=== PATIENT | female | born 1950 | race Caucasian/White ===

== ENCOUNTER 2018-12-27 09:36 | Outpatient (REF) | payer BC, SELFPAY ==
[2018-12-27 13:24] LABS: Anion Gap 7.6 mmol/L (3-11); BUN 17 mg/dL (7-18); CO2 29.4 mmol/L (21.0-32.0); CREATININE 0.62 mg/dL (0.55-1.02); Calcium 8.9 mg/dL (8.5-10.1); Chloride 105 mmol/L (98-107); Cholesterol 185 mg/dL (50-200); Glucose 81 mg/dL (70-100); HDL Cholesterol 53 mg/dL (40-60); LDL CHOLESTEROL 122 mg/dL (<100); Potassium 4.8 mmol/L (3.5-5.1); Sodium 142 mmol/L (136-145); Triglyceride 39 mg/dL (30-150)
== END 2018-12-27 09:56 ==
LOC: LBN 09:36
PROVIDERS: PCP Internal Medicine; Visit Provider Internal Medicine
DX: I10 Essential (primary) hypertension (principal)
CPT/HCPCS: 80048; 80061; 83721

== ENCOUNTER 2019-03-08 10:15 | Emergency (ER) | payer BC, SELFPAY ==
[2019-03-08 10:26] VITALS: BP 158/86; PULSE 96; RESP 14; TEMP 36.6
--- NOTE | 2019-03-08 10:33 | ED.GENADUL_ITS ---
Discharge Plan Disposition Patient Disposition: HOME Condition: Good Discharge Details Chief Complaint: GenMedical Clinical Impression: Pain in right buttock Primary Care Provider: Serena Washington ED Provider: Thomas Velasco Home Meds and New Rx's Prescriptions: No Action ascorbic acid (vitamin C) 500 mg tablet 500 mg PO DAILY RF: 0 citalopram 10 mg tablet 10 mg PO DAILY Qty: 90 RF: 3 losartan-hydrochlorothiazide 100-12.5 mg tablet 1 tab PO DAILY Qty: 90 RF: 3 diltiazem HCl 360 mg capsule,extended release 24hr 360 mg PO DAILY Qty: 90 RF: 3 multivitamin [Daily Multi-Vitamin] 1 EACH tablet 1 ea PO DAILY RF: 0 aspirin 325 MG tablet 325 mg PO DAILY Qty: 90 RF: 3 atorvastatin 20 mg tablet 20 mg PO DAILY Qty: 90 RF: 3 Discharge Instructions Instructions: Leg Pain (ED) Additional Instructions: Feel free to return to the emergency department as needed for any new or worsening symptoms. Otherwise to need to take your medications as prescribed and use [id number] acetaminophen as needed for discomfort Referrals: Serena Washington MD [Primary Care Provider] - (As needed for reassessment or if not improving) Discharge Data Discharge Date/Time-TO BE ENTERED AT DEPARTURE: 03/08/19 12:19 Medical Decision Making Patient presenting to the emergency department for chief complaint of right buttock pain. Patient states a couple days ago she lost a sewing needle and thinks she may have sat on it due to the pain in her right buttock. Patient denies any fever chills, bowel or bladder irritation. Patient does state history of sciatica but denies any back pain type symptoms. Physical exam shows no obvious puncture wound, no palpable foreign body, beyond patient overweight status making it difficult to fully determine if there is a foreign body present there was no remarkable findings except for paraspinal tenderness to the right lumbar/sacral region. Plan to do radiological imaging to assess for metallic/radiopaque foreign body. Review of radiological imaging there is no obvious foreign body noted. Did discuss with patient possibility of piriformis syndrome, or musculoskeletal type pain. I feel that conservative therapies are appropriate and patient to follow- up with primary care provider as needed for reassessment. Return precautions were discussed after discussion of diagnosis and plan of care patient has no further needs, questions, or concerns and states clear understanding to return to the emergency department for any worsening symptoms. HPI General Mode of arrival: ambulatory . Date/Time Provider Initiated Documentation: 03/08/19 10:30 . Limitations to Documentation: no limitations . Information obtained by: patient and RN notes reviewed . History of Present Illness 69 year old F presents to the emergency department with the chief complaint of right buttock pain, puncture wound, described as mild, with intensity rated at 2. Quality is described as sharp, and is localized to the buttocks and right. Patient extremity. Patient started experiencing this week(s) (3) and it has been intermittent. No relieving factors improve symptom(s), Movement worsens symptoms . Patient notes no other symptoms.. Patient did receive the following treatments prior to arrival, none Related Data Home Medications Medication Instructions Recorded Confirmed multivitamin [Daily Multiple 1 ea PO DAILY 01/03/13 12/27/18 Vitamin] aspirin 325 mg PO DAILY #90 tab 01/05/17 12/27/18 ascorbic acid (vitamin C) 500 mg 500 mg PO DAILY 06/28/18 12/27/18 tablet citalopram 10 mg tablet 10 mg PO DAILY #90 tab 06/28/18 12/27/18 diltiazem CD 360 mg 360 mg PO DAILY #90 cap 06/28/18 12/27/18 capsule,extended release 24 hr losartan 100 1 tab PO DAILY #90 tab-cap 06/28/18 12/27/18 mg-hydrochlorothiazide 12.5 mg tablet atorvastatin 20 mg tablet 20 mg PO DAILY #90 tab 01/18/19 Previous Rx's Medication Instructions Recorded citalopram 10 mg tablet 10 mg PO DAILY #90 tab 06/28/18 diltiazem CD 360 mg 360 mg PO DAILY #90 cap 06/28/18 capsule,extended release 24 hr losartan 100 1 tab PO DAILY #90 tab-cap 06/28/18 mg-hydrochlorothiazide 12.5 mg tablet atorvastatin 20 mg tablet 20 mg PO DAILY #90 tab 01/18/19 Allergies Allergy/AdvReac Type Severity Reaction Status Date / Time phenobarbital Allergy Unknown unknown Verified 03/08/19 10:29 General Stated Complaint: GenMedical DESTINEE: 4 Review of Systems Constitutional Denies chills and Denies fever(s) Musculoskeletal Denies back pain, Denies muscle weakness, Denies numbness, Reports radiating pain into limb and Denies tingling Integumentary/Breasts Reports as per HPI and Reports wounds Neurologic Denies numbness and Denies tingling PFSH Medical History Afib Back pain Depression Diverticulosis Gallstones Hyperlipidemia Hypertension Memory loss Morbid obesity Snoring Vitreomacular traction syndrome of both eyes Surgical History Brain Surgery, 05/11/1993 NOEMY/BSO, 2003 Family History Mother Diabetes Essential hypertension Heart disease Stroke Father Heart disease Stroke Social History Smoking/Tobacco Use Status: Never Alcohol Intake: never Substance use type: does not use Do you feel safe in your relationship?: Yes Exam Const General: cooperative, no acute distress and not ill appearing Orientation: alert, awake and oriented x3 HENMT Mouth: moist mucous membranes Resp Effort & Inspection: normal respiratory effort, able to speak in complete sentences and no respiratory distress Back/Spine/Pelvis Thoracic/Lumbar Spine: thoracic and lumbar spine normal to inspection, paraspinal tenderness (right lower lumbar), No thoracic spinal tenderness and No lumbar spinal tenderness Pelvis: no pain with anterior-posterior compression, no pain with lateral compression, no buttock tenderness, no buttock swelling and no sciatic notch tenderness Skin General skin exam: no rashes or lesions noted Lesions: no lesions Rashes: no rashes Trauma: no lacerations or abrasions Wounds: no wounds Neuro General: alert, awake, oriented x3 and gait normal Sensory Exam: no sensory deficits noted Course Vital Signs Temperature 36.6 C 03/08/19 10:26 Pulse 96 H 03/08/19 10:26 Respiratory Rate 14 03/08/19 10:26 Blood Pressure 158/86 H 03/08/19 10:26 Temperature 36.6 C 03/08/19 10:26 Temperature Source Temporal Artery Scan 03/08/19 10:26 Pulse 96 H 03/08/19 10:26 Respiratory Rate 14 03/08/19 10:26 Respiratory Effort 03/08/19 10:26 Blood Pressure 158/86 H 03/08/19 10:26 Blood Pressure Position Sitting 03/08/19 10:26 Oxygen Delivery Method Room Air 03/08/19 10:26 Oxygen Flow Rate 0 03/08/19 10:26
--- NOTE | 2019-03-08 10:33 | DI.RAD_ITS ---
SYMPTOMS/DIAGNOSIS: POSSIBLE PUNCTURE WOUND RT BUTTOCK, ? METALLIC FOREIGN BODY RIGHT HIP SOFT TISSUE: Four views were obtained. No gross foreign body identified. Mild degenerative changes of the right hip noted.
[2019-03-08 10:36] VITALS: RESP 16
== END 2019-03-08 12:19 | disposition home or self-care (01) ==
PROVIDERS: Emergency Provider Nurse Practitioner Family; PCP Internal Medicine
DX: R52 Pain, unspecified (principal); I10 Essential (primary) hypertension
CPT/HCPCS: 99282; 73501

== ENCOUNTER 2019-03-10 01:30 | Outpatient (CLI) | payer BC, SELFPAY ==
--- NOTE | 2019-03-10 09:00 | DI.MAMMO_ITS ---
SYMPTOM/DIAGNOSIS: SCREENING FOR BREAST CANCER Z12.31 MAMMOGRAM: 03/10 Mammograms were interpreted according to the usual protocol including computer analysis with CAD system, tomosynthesis and C view imaging. The breasts are of moderate density with fairly symmetrical distribution of fibroglandular tissue. No dominant mass or clumped microcalcifications identified in either breast. The current examination is compared with previous examinations including 02/2018 and there has been no gross interval change in appearance in comparison with the previous studies. CONCLUSION: No specific evidence of malignancy at this time. Routine screening examinations are suggested at yearly intervals due to family history of breast carcinoma. Category 1, breast density category B. MQSA ASSESSMENT OF FINDINGS: Negative. Category 1. Patient will receive a letter notifying them of these results. BI-RADS category B. There are scattered areas of fibroglandular density.
== END 2019-03-10 01:50 ==
PROVIDERS: PCP Internal Medicine; Visit Provider Internal Medicine
DX: Z12.31 Encounter for screening mammogram for malignant neoplasm of breast (principal); Z80.3 Family history of malignant neoplasm of breast
CPT/HCPCS: 77063; 77067

== ENCOUNTER 2019-11-17 03:09 | Outpatient (CLI) | payer BC, SELFPAY ==
--- NOTE | 2019-11-17 09:45 | DI.US_ITS ---
EXAM: US LOWER EXTREMITY VENOUS LT CLINICAL HISTORY: left leg pain, pain lt lower extremity, tenderness, M79.605 TECHNIQUE: Ultrasound performed using standard protocol. COMPARISON: No exams were available for comparison FINDINGS: The femoral and popliteal veins visualized calf veins are freely compressible. No thrombus is visib le. The Doppler venous waveform augments normally. No superficial thrombophlebitis is seen. A Bake r's cyst is seen measuring 5.1 x 1 x 2.2 cm. IMPRESSION: Coleman's cyst. No evidence of DVT. DATA REPOSITORY:
== END 2019-11-17 03:29 ==
PROVIDERS: PCP Internal Medicine; Visit Provider Student in an Organized Health Care Education/Training Program
DX: M79.605 Pain in left leg (principal); M71.22 Synovial cyst of popliteal space [Baker], left knee
CPT/HCPCS: 93971

== ENCOUNTER 2020-05-31 02:13 | Outpatient (CLI) | payer BC, SELFPAY ==
[2020-05-31 12:47] LABS: Anion Gap 3.4 mmol/L (3-11); BUN 16 mg/dL (7-18); CO2 33.6 mmol/L (21.0-32.0); Calcium 8.7 mg/dL (8.5-10.1); Calculated LDL 115 mg/dL (<100); Chloride 106 mmol/L (98-107); Cholesterol 178 mg/dL (<200); Glucose 86 mg/dL (74-106); HDL Cholesterol 54 mg/dL (40-60); Potassium 4.4 mmol/L (3.5-5.1); Sodium 143 mmol/L (136-145); Triglyceride 45 mg/dL (<150)
== END 2020-05-31 02:33 ==
PROVIDERS: PCP Internal Medicine; Visit Provider Internal Medicine
DX: I10 Essential (primary) hypertension (principal); E78.00 Pure hypercholesterolemia, unspecified
CPT/HCPCS: 36415; 80048; 80061

== ENCOUNTER 2020-05-31 08:50 | Outpatient (CLI) | payer BC, SELFPAY ==
[2020-06-02 22:35] LABS: Patient Race White; SARS-CoV-2 RNA Undetected (Undetected); SARS-CoV-2 Specimen Source Nasal
== END 2020-05-31 09:10 ==
PROVIDERS: PCP Internal Medicine; Visit Provider Internal Medicine
DX: Z11.59 Encounter for screening for other viral diseases (principal)
CPT/HCPCS: U0003

== ENCOUNTER 2020-11-15 18:07 | Outpatient (REF) | payer OTHER, SELFPAY ==
[2020-11-18 12:51] LABS: COVID-19 RT-PCR UVMMC Result Negative (Negative)
== END 2020-11-15 18:08 | disposition home or self-care (01) ==
LOC: LBN 18:07
PROVIDERS: PCP Internal Medicine; Visit Provider Internal Medicine
DX: Z20.822 Contact with and (suspected) exposure to COVID-19 (principal)
CPT/HCPCS: U0003

== ENCOUNTER 2020-12-11 01:23 | Outpatient (CLI) | payer OTHER, SELFPAY ==
--- NOTE | 2020-12-11 09:10 | DI.MAMMO_ITS ---
EXAM: MG MAMMO SCREENING CLINICAL HISTORY: screening,Z12.39. TECHNIQUE: Bilateral full field digital CC and MLO mammographic images were obtained with 3D tomosyn thesis and utilizing computer aided detection (CAD). COMPARISON: Prior mammograms dating back to 2011, the most recent being February 2019. FINDINGS: There are no new spiculated masses nor malignant appearing microcalcification groups. Numerous benign microcalcifications are again noted in both breasts. A microcalcification group in t he left breast located medial of center 9 cm in from the nipple is unchanged from 2012. There is no significant architectural distortion nor skin thickening-retraction. IMPRESSION: No radiographic evidence of malignancy. BI-RADS Category 1 - Negative Breast Density - Category A - Almost entirely fatty Breast density Category C or D implies that the patient has dense breast tissue. Dense breast tissue can make it harder to find cancer on a mammogram. Dense breast tissue is also associated with an incr eased risk of breast cancer. This information about the result of the mammogram report was provided to the patient to raise their awareness. Use this report when you speak with the patient about their risks for breast cancer, which includes their family history. At that time, you may recommend additional screening tests (Ultrasoun d or MRI) as these tests may add significant information. A negative radiographic report should not delay biopsy if a dominant or clinically suspicious mass is present. Up to ten percent of cancers are not identified on mammography. A negative report may reinforce clinical impression. Adenosis and dense breasts may obscure an underlying neoplasm. False positive reports average 6 to 10%. Patient will receive a letter notifying them of these results.
== END 2020-12-11 01:43 ==
PROVIDERS: PCP Internal Medicine; Visit Provider Internal Medicine
DX: Z12.31 Encounter for screening mammogram for malignant neoplasm of breast (principal)
CPT/HCPCS: 77063; 77067

== ENCOUNTER 2021-06-11 09:15 | Outpatient (REF) | payer OTHER, SELFPAY ==
[2021-06-11 14:54] LABS: Anion Gap 7.2 mmol/L (3-11); BUN 16 mg/dL (7-18); CO2 29.8 mmol/L (21.0-32.0); CREATININE 0.8 mg/dL (0.55-1.02); Chloride 107 mmol/L (98-107); Glucose 89 mg/dL (74-106); Potassium 3.5 mmol/L (3.5-5.1); Sodium 144 mmol/L (136-145); Uric Acid 6.1 mg/dL (2.6-6.0)
[2021-06-11 15:10] LABS: Calculated LDL 124 mg/dL (<100); Cholesterol 196 mg/dL (<200); HDL Cholesterol 57 mg/dL (40-60); Triglyceride 79 mg/dL (<150)
== END 2021-06-11 09:16 | disposition home or self-care (01) ==
LOC: LBN 09:15
PROVIDERS: PCP Internal Medicine; Visit Provider Internal Medicine
DX: I10 Essential (primary) hypertension (principal); E78.00 Pure hypercholesterolemia, unspecified; I48.11 Longstanding persistent atrial fibrillation; R26.2 Difficulty in walking, not elsewhere classified; M79.675 Pain in left toe(s)
CPT/HCPCS: 80048; 80061; 84550

== ENCOUNTER 2021-09-14 12:54 | Emergency (ER) | payer MEDICARE, SELFPAY ==
[2021-09-14 13:17] VITALS: BP 186/77; PULSE 89; RESP 16; TEMP 36.8; O2SAT 97
--- NOTE | 2021-09-14 14:08 | ED.GENADUL_ITS ---
Discharge Plan Disposition Patient Disposition: HOME Condition: Stable Discharge Details Clinical Impression: Lesion of eyelid Primary Care Provider: Serena Washington ED Provider: Ebonie Meneses Home Meds and New Rx's Prescriptions: Continued B-complex with vitamin C Tablet 1 tab PO DAILY RF: 0 apixaban 5 mg tablet 5 mg PO BID Qty: 180 RF: 3 citalopram 20 mg tablet 20 mg PO QHS Qty: 90 RF: 3 diltiazem HCl 360 mg capsule,extended release 24hr 360 mg PO DAILY Qty: 90 RF: 1 losartan-hydrochlorothiazide 100-25 mg tablet 1 tab PO DAILY Qty: 90 RF: 1 multivitamin [Daily Multi-Vitamin] 1 EACH tablet 1 ea PO DAILY RF: 0 Discharge Instructions Additional Instructions: Please follow-up with your gauge and instrument inspector tomorrow to schedule an appointment reevaluation of the lesion in your eye And is very important that you have a reassessment to see Use the eyedrops as prescribed Please return earlier should you have new or worsening complaints including fever, chills, vision change Discharge Data Discharge Date/Time-TO BE ENTERED AT DEPARTURE: 09/14/21 14:20 Medical Decision Making Patient appears well, she does have a lesion in her lower lid There is no active bleeding She will be reinitiated on Vigamox and referred to her gauge and instrument inspector. She must reassess this week, preferably tomorrow she will call Return precautions discussed and patient expressed understanding We will need blood pressure rechecked by PCP in the outpatient setting Medical Records Medical records reviewed: Yes I reviewed the patient's medical records. HPI General Mode of arrival: ambulatory . Date/Time Provider Initiated Documentation: 09/14/21 13:09 . Limitations to Documentation: no limitations . Information obtained by: patient . HPI Narrative: This 71-year-old female with history of atrial fibrillation anticoagulated on Eliquis, depression, high cholesterol presents with report of lesion right lower eyelid that is bleeding. Patient states approximately 2 months ago she was placed on some topical antib iotic for an eye infection by her provider in [place]. She states that this past week she has had some discomfort reoccur and today and object reportedly protruded from the site of discomfort. She states she had dramatic improvement in her symptoms. She denies any vision change but she states her vision has improved. She denies any additional complaints at this time. She states that she did have some bleeding from the site and the debris was removed. She denies any headache. Related Data Home Medications Medication Instructions Recorded Confirmed multivitamin [Daily Multi-Vitamin] 1 ea PO DAILY 01/03/13 09/14/21 B-complex with vitamin C 1 tab PO DAILY 05/28/20 09/14/21 apixaban 5 mg tablet 5 mg PO BID #180 tab 05/28/20 09/14/21 citalopram 20 mg tablet 20 mg PO QHS #90 tab 12/10/20 09/14/21 diltiazem HCl 360 mg 360 mg PO DAILY #90 cap 06/12/21 09/14/21 capsule,extended release 24 hr losartan 100 1 tab PO DAILY #90 tab 06/12/21 09/14/21 mg-hydrochlorothiazide 25 mg tablet Previous Rx's Medication Instructions Recorded apixaban 5 mg tablet 5 mg PO BID #180 tab 05/28/20 citalopram 20 mg tablet 20 mg PO QHS #90 tab 12/10/20 diltiazem HCl 360 mg 360 mg PO DAILY #90 cap 06/12/21 capsule,extended release 24 hr losartan 100 1 tab PO DAILY #90 tab 06/12/21 mg-hydrochlorothiazide 25 mg tablet Allergies Allergy/AdvReac Type Severity Reaction Status Date / Time phenobarbital Allergy Intermediate rash Verified 09/14/21 13:26 General Stated Complaint: EyeProblem DESTINEE: 4 Review of Systems All systems reviewed & are unremarkable except as noted in HPI and below PFSH All Active Problems (Updated 09/14/21 @ 14:11 by YIFAN Edouard) Lesion of eyelid (Acute) [place] cardiac risk 10-20% in next 10 years (Chronic) 2020 12.9% Hypercholesterolemia (Acute ~06/26/21) Chronic anticoagulation (Acute) Depressive disorder (Chronic 09/17/11) W/LOBECTOMY Impaired ambulation (Acute) Right shoulder pain (Chronic) Pre-diabetes (Acute) 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) OS 20/40 05/31/21 TSH elevation (Acute 06/22/17) n= 3.74, her result 3.81 Snoring (Acute 02/02/13) Jayce ordered sleep consult 01/2013 Morbid obesity (Acute 02/02/13) 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 Fatty infiltration of liver (Acute 02/15/18) Essential hypertension (Acute 09/17/11) goal BP 140/90 Diverticulosis of colon (Acute 02/15/18) Atrial fibrillation (Acute 05/19/12) Onset 2011, Holter 12/2011 AFib throughout, ECHO 12/2008 LVEF 65%+LVH Permanent, clinically silent Managed with rate control ASA [place] Roofer Jayce Advanced directive placed in chart this admission (Acute 02/15/18) Medical History (Updated 09/14/21 @ 14:11 by YIFAN Edouard) Afib Back pain Benign paroxysmal positional vertigo (09/17/11) Depression Diverticulosis Gallstones Hyperlipidemia Hypertension Memory loss Morbid obesity Pneumonia of left lower lobe due to infectious organism (12/09/16) Seizure disorder (09/17/11) Snoring Vitreomacular traction syndrome of both eyes Surgical History Brain Surgery, 05/11/1993 [place] [facility] 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, 2002 Excessive bleeding Family History Mother Diabetes Essential hypertension Heart disease Stroke Father Heart disease Stroke Social History (Updated 06/11/21 @ 09:13 by Nirmala Leon LPN) Smoking/Tobacco Use Status: Never Smoking risk assessment performed?: Yes Alcohol Intake: never Drug use: Never Substance use type: does not use Household members: none Housing: other Communication Needs: Corrective Lenses current occupation: works at [employer] Pets and animals: Yes Pets and animals: cat(s) What is your relationship status?: How often do you talk on the phone with friends or family?: once per week Panel score (0-1 are the most socially isolated patients): 0 What type of physical activity do you participate in: other Details: physically active at work Seatbelt use: always Drive intox or ride w/intox medical driver: No Working smoke detector in home: Yes Fire extinguisher in home: Yes Carbon monox detector in home: Yes Do you feel safe at home: Yes Do you feel safe in your relationship?: Yes Exam Const General: cooperative, comfortable and no acute distress Eyes Conjunctivae: conjunctivae normal Cornea: corneas normal Pupils: PERRL Eyes/upper lids images: 1. Mass noted, approximately 2 mm x 2 mm, scant coagulated blood around the site Resp Effort & Inspection: normal respiratory effort Cardio Rate: regular rate Neuro General: patient alert and patient oriented x3 Course Vital Signs Vital signs: Vital Signs Temperature 36.8 C 09/14/21 13:17 Pulse 89 09/14/21 13:17 Respiratory Rate 16 09/14/21 13:17 Blood Pressure 186/77 H 09/14/21 13:17 Pulse Oximetry 97 09/14/21 13:17 Temperature 36.8 C 09/14/21 13:17 Temperature Source Temporal Artery Scan 09/14/21 13:17 Pulse 89 09/14/21 13:17 Respiratory Rate 16 09/14/21 13:17 Respiratory Effort Non-Labored 09/14/21 13:24 Blood Pressure 186/77 H 09/14/21 13:17 Blood Pressure Position Sitting 09/14/21 13:17 Pulse Oximetry 97 09/14/21 13:17 Oxygen Delivery Method Room Air 09/14/21 13:17 Oxygen Flow Rate 0 09/14/21 13:17 Pain Level 1 09/14/21 13:17
== END 2021-09-14 14:20 | disposition home or self-care (01) ==
PROVIDERS: Emergency Provider Physician Assistant; PCP Internal Medicine
DX: H02.89 Other specified disorders of eyelid (principal)
CPT/HCPCS: 99283

== ENCOUNTER 2022-06-17 02:54 | Outpatient (CLI) | payer MEDICARE, SELFPAY ==
[2022-06-17 09:28] LABS: HCT 42.3 % (36.0-46.0); MCH 30.4 pg (27.0-33.0); MCHC 33.1 % (32.0-36.0); MCV 92 fL (80-95); MPV 9.8 fL (8.0-11.0); Platelet Count 217 10^3/uL (130-400); RBC 4.61 10^6/uL (3.93-5.22); RDW 13.5 % (11.7-14.6); RDW-SD 46.1 fL; WBC 5.58 10^3/uL (4.4-10.8)
[2022-06-17 09:51] LABS: Anion Gap 5.8 mmol/L (3-11); BUN 19 mg/dL (7-18); CO2 32.2 mmol/L (21.0-32.0); CREATININE 0.8 mg/dL (0.55-1.02); Calcium 9.2 mg/dL (8.5-10.1); Calculated LDL 117 mg/dL (<100); Chloride 102 mmol/L (98-107); Cholesterol 189 mg/dL (<200); Estimated GFR 79.22 (mL/min/1.73m2); Glucose 91 mg/dL (74-106); HDL Cholesterol 62 mg/dL (40-60); Potassium 4.2 mmol/L (3.5-5.1); Sodium 140 mmol/L (136-145); Triglyceride 54 mg/dL (<150)
== END 2022-06-17 02:55 | disposition home or self-care (01) ==
LOC: LBO 02:56
PROVIDERS: PCP Internal Medicine; Visit Provider Internal Medicine
DX: I10 Essential (primary) hypertension (principal); E78.00 Pure hypercholesterolemia, unspecified; R73.03 Prediabetes
CPT/HCPCS: 36415; 80048; 80061; 85027

== ENCOUNTER 2022-10-22 21:16 | Inpatient (IN) | payer MEDICARE, SELFPAY ==
[2022-10-22] VITALS (25 sets, daily range): BP systolic 154–184; BP diastolic 69–128; PULSE 80–106; RESP 11–26; TEMP 37.2; O2SAT 85–100
--- NOTE | 2022-10-22 21:15 | RT.EKG_ITS ---
APPROVED REPORT Exam: Resting ECG Reason for Exam: CHEST PAIN Patient Location: E HR:97 bpm ECG Measurements Heart Rate 97 [place]IS [place] [id number] P [id number] QRSd 86 QRS 27 QT 364 T 59 QTc 469 Conclusion Atrial fibrillation...V-rate 74-128, irreg A-activity
--- NOTE | 2022-10-22 21:28 | W.ED.GENAD ---
Discharge Plan Disposition Patient Disposition: Admit to [facility] Condition: Improving Discharge Details Clinical Impression: Atrial fibrillation, Hypertensive urgency Admit Date/Time: 10/22/22 23:48 Admit Provider: Misbah Morris Attending Provider: Misbah Morris Primary Care Provider: Tiffany Patino ED Provider: [facility] Medical Decision Making This is a 72-year-old female history of atrial fibrillation for which she takes diltiazem and apixaban. She notes approximately 6 PM she developed anterior chest tightness that she grades 5 out of 10. Associated with shortness of breath and some mild nausea. She states earlier in the day she felt as if she was having some stomach cramps. She states that she has not been ill in any other way. On arrival the patient is hypertensive with a pressure 175/128, she is in atrial fibrillation with a pulse in the 90s. She is oxygenating normally and is afebrile. Her history includes obesity, hypercholesterolemia, hypertension. She is high risk for acute coronary syndrome, differential diagnosis would also include hypertensive crisis, CHF, PE. Patient given 325 mg of aspirin. Given her hypertension and chest discomfort that she rated 5 out of 10, she was given sublingual nitroglycerin. Patient was placed on a vehicle monitor technician, laboratories obtained and stat portable chest x-ray obtained. Diagnostic studies: Chest x-ray with clear lungs, mild cardiac enlargement, no significant change since 2017. White blood cell count 10, hematocrit 45, platelets 273. Troponin is negative. Sodium 142, potassium 3.5, chloride 102, bicarb 31, BUN 13, creatinine 0.9. LFTs unremarkable. BNP elevated at 1118. Magnesium subtherapeutic at 1.7 and supplemented in the ER. D-dimer elevated at 806. With the chest pain and elevated D-dimer, the patient was referred for CT scan of the chest and due to her upper abdominal discomfort abdominal imaging was obtained as well; the thoracic aorta has aneurysmal changes but no dissection. No PE, no lung infiltrates. There is some bronchial wall thickening. Note of left renal artery stenosis, multiple gallstones. She has had some ongoing mild abdominal cramping. She will note that she does have some abdominal discomfort after eating greasy meals, but no evidence of acute cholecystitis at this time. The patient will benefit from admission for further restratification HPI General Mode of arrival: ambulatory. Date/Time Provider Initiated Documentation: 10/22/22 21:18. Limitations to Documentation: no limitations. Information obtained by: patient. History of Present Illness 72 year old F presents to the emergency department with the chief complaint of Anterior chest tightness since 6 PM, described as moderate, Quality is described as dull and constant, and is localized to the chest. Patient reports no radiation. Patient started experiencing this hour(s) and it has been constant. No relieving factors improve symptom(s), No exacerbating factors reported . Patient notes chest pain, headaches, nausea/vomiting, shortness of breath and other (No vomiting, states she is having stomach cramps); denies fever/chills. Patient did receive the following treatments prior to arrival, none Related Data Home Medications Medication Instructions Recorded Confirmed multivitamin (Daily Multi-Vitamin 1 ea PO DAILY 01/03/13 10/22/22 tablet) ascorbate calcium (vitamin C) 500 500 mg PO DAILY 06/24/22 10/22/22 mg tablet citalopram 20 mg tablet 20 mg PO QHS #90 tabs 09/16/22 10/22/22 valsartan 160 1 tab PO DAILY HTN #90 tabs 09/16/22 10/22/22 mg-hydrochlorothiazide 25 mg tablet apixaban 5 mg tablet 5 mg PO BID blood thinner #180 tabs 09/21/22 10/22/22 diltiazem HCl 360 mg 360 mg PO DAILY #90 caps 09/24/22 10/22/22 capsule,extended release 24 hr vitamin B complex (Complex B-100 1 tab PO DAILY 10/01/22 10/22/22 tablet,extended release) Previous Rx's Medication Instructions Recorded citalopram 20 mg tablet 20 mg PO QHS #90 tabs 09/16/22 valsartan 160 1 tab PO DAILY HTN #90 tabs 09/16/22 mg-hydrochlorothiazide 25 mg tablet apixaban 5 mg tablet 5 mg PO BID blood thinner #180 tabs 09/21/22 diltiazem HCl 360 mg 360 mg PO DAILY #90 caps 09/24/22 capsule,extended release 24 hr Allergies Allergy/AdvReac Type Severity Reaction Status Date / Time phenobarbital Allergy Intermediate rash Verified 10/22/22 21:37 General Stated Complaint: Chest Pain DESTINEE: 3 Review of Systems Narrative: Recently had a cough. No fever. Immunized against COVID. 8 systems reviewed and otherwise negative. 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) OS 20/40 05/31/21 TSH elevation (Acute 06/22/17) n= 3.74, her result 3.81 Snoring (Acute 02/02/13) Eduardo ordered sleep consult 01/2013 Morbid obesity (Acute 02/02/13) 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 Essential hypertension (Chronic 09/17/11) goal BP 140/90 Atrial fibrillation (Chronic 05/19/12) Onset 2011, Holter 12/2011 AFib throughout, ECHO 12/2008 LVEF 65%+LVH Permanent, clinically silent 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 Medical History Advanced directive placed in chart this admission (02/15/18) Afib Back pain Benign paroxysmal positional vertigo (09/17/11) Depression Diverticulosis Diverticulosis of colon (02/15/18) Fatty infiltration of liver (02/15/18) Gallstones Hyperlipidemia Hypertension Impaired ambulation Memory loss Morbid obesity Pneumonia of left lower lobe due to infectious organism (12/09/16) Right shoulder pain Seizure disorder (09/17/11) Snoring Vitreomacular traction syndrome of both eyes Surgical History Brain Surgery, 05/11/1993 Neurosurgery [facility] [place], 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, 2002 Excessive bleeding Family History Mother Diabetes Essential hypertension Heart disease Stroke Father Heart disease Stroke Social History Smoking/Tobacco Use Status: Never Smoking risk assessment performed?: Yes Alcohol Intake: never Drug use: Never Substance use type: does not use Household members: none Housing: other Communication Needs: Corrective Lenses current occupation: works at [employer] Pets and animals: Yes Pets and animals: cat(s) What is your relationship status?: How often do you talk on the phone with friends or family?: once per week Panel score (0-1 are the most socially isolated patients): 0 What type of physical activity do you participate in: other Details: physically active at work Seatbelt use: always Drive intox or ride w/intox 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 Pleasant, well groomed, interactive. HEAD: Normocephalic, atraumatic ENT: Mucous membranes moist, oropharynx unremarkable, External ear exam unremarkable EYES: PERRL, EOMI NECK: Full ROM, no GABRIELA, no menigismus CHEST/RESP: Nontender, clear to auscultation bilateral, no wheeze/rhonchi/rales CARDIOVASCULAR: Irregularly irregular, no murmur, rub royer. 2+ Rad pulse bilateral ABDOMEN: Soft, minimal upper abdominal tenderness without rebound or guarding, no mass. +Bowel sounds EXT: Full ROM, no edema, no rash Neuro: Grossly normal neurologic exam, conversant, interactive. Psych: Speech fluent, thoughts congruent, affect normal Course Vital Signs Vital signs: Vital Signs Temperature 37.2 C 10/22/22 21:18 Pulse 96 H 10/22/22 21:18 Respiratory Rate 22 10/22/22 21:18 Blood Pressure 175/128 H 10/22/22 21:18 Pulse Oximetry 95 10/22/22 21:18 Temperature 37.2 C 10/22/22 21:18 Temperature Source Temporal Artery Scan 10/22/22 21:18 Pulse 96 H 10/22/22 21:18 Respiratory Rate 22 10/22/22 21:18 Blood Pressure 175/128 H 10/22/22 21:18 Blood Pressure Position Sitting 02/09/23 21:18 Pulse Oximetry 95 10/22/22 21:18 Oxygen Delivery Method Room Air 10/22/22 21:18 Oxygen Flow Rate 0 10/22/22 21:18 Pain Level 5 10/22/22 21:18
[2022-10-22] MEDS: nitroGLYcerin 0.4 MG TAB SL ×2 (21:31→21:45)
[2022-10-22] MEDS: Aspirin 325 MG TAB PO (21:32)
--- NOTE | 2022-10-22 21:42 | DI.RAD_ITS ---
Exam(s) XR PORTABLE CHEST AP EXAM: XR PORTABLE CHEST AP CLINICAL HISTORY: anterior chest pain TECHNIQUE: 2D digital imaging was performed of the chest. One image was obtained. An AP view was ob tained. COMPARISON: CR CHEST 2 VIEWS PA,LAT from 11/26/2016 FINDINGS: MEDIASTINUM: Normal. HEART: Mild cardiomegaly. PULMONARY VASCULATURE: Normal. LUNGS: Clear. PLEURAL SPACE: No pleural effusion or pneumothorax. BONE:Within normal limits for the patient's age. OTHER FINDINGS:Normal. IMPRESSION: No acute pulmonary findings. DATA REPOSITORY: RADIATION DOSE DELIVERED:
[2022-10-22 21:44] LABS: Abs Immature Grans 0.03 10^3/uL (0.0-0.06); Absolute Basophil Count 0.05 10^3/uL (0.0-0.2); Absolute Eosinophil Count 0.25 10^3/uL (0.0-0.7); Absolute Lymphocyte Count 3.45 10^3/uL (1.2-3.4); Absolute Monocyte Count 0.83 10^3/uL (0.1-0.8); Absolute Neutrophil Count 5.48 10^3/uL (1.2-6.7); Basophils % 0.5; Eosinophils % 2.5; HCT 45.3 % (36.0-46.0); HGB 14.6 g/dL (11.2-15.7); Immature Grans % 0.3; Lymphocytes % 34.2; MCH 29.9 pg (27.0-33.0); MCHC 32.2 % (32.0-36.0); MCV 93 fL (80-95); MPV 9.5 fL (8.0-11.0); Monocytes % 8.2; Neutrophils % 54.3; Platelet Count 273 10^3/uL (130-400); RBC 4.88 10^6/uL (3.93-5.22); RDW 13.2 % (11.7-14.6); RDW-SD 44.8 fL; WBC 10.09 10^3/uL (4.4-10.8)
[2022-10-22] MEDS: Ondansetron 4 MG/2 ML VIAL IVP (21:48)
[2022-10-22 21:53] LABS: INR 1.1 (0.9-1.1); PTT Activated 28.4 sec (21.5-31.9); Prothrombin Time 10.7 sec (9.3-11.0)
--- NOTE | 2022-10-22 22:00 | DI.VRAD_ITS ---
PROCEDURE INFORMATION: Exam: XR Chest Exam date and time: 10/22/2022 9:18 PM Age: 72 years old Clinical indication: Pain; On breathing TECHNIQUE: Imaging protocol: Radiologic exam of the chest. Views: 1 view. COMPARISON: CR CHEST 2 VIEWS PA,LAT 11/26/2016 11:37 AM FINDINGS: Lungs: Clear lungs. No edema or infiltrates. Pleural spaces: No pleural effusion. Heart/Mediastinum: Mild cardiac enlargement. Bones/joints: Unremarkable. IMPRESSION: 1. Clear lungs and pleural space. 2. Mild cardiac enlargement. 3. No significant change since 2016. Dictated and Authenticated by: Ryan Rogers MD. Ordering:LOREE Beyer MD
[2022-10-22 22:10] LABS: ALT 21 U/L (14-59); AST 20 U/L (15-37); Albumin 4.2 g/dL (3.4-5.0); Alkaline Phosphatase 80 U/L (46-116); Anion Gap 8.1 mmol/L (3-11); BUN 13 mg/dL (7-18); Bilirubin, Total 0.4 mg/dL (0.2-1.0); CO2 31.9 mmol/L (21.0-32.0); CREATININE 0.9 mg/dL (0.55-1.02); Calcium 9.6 mg/dL (8.5-10.1); Chloride 102 mmol/L (98-107); Estimated GFR 68.77 (mL/min/1.73m2); Glucose 106 mg/dL (74-106); Magnesium 1.7 mg/dL (1.8-2.4); Potassium 3.5 mmol/L (3.5-5.1); Sodium 142 mmol/L (136-145); Total Protein 8.1 g/dL (6.4-8.2); Troponin I < 50 ng/L (<or=60)
[2022-10-22 22:12] LABS: NT-proBNP 1118 pg/mL (<300)
--- NOTE | 2022-10-22 22:15 | DI.CT_ITS ---
Exam(s) CT CHEST PE ABD PELVIS W EXAM: CT CHEST PE ABD PELVIS W CLINICAL HISTORY: anterior chest pain, upper abd pain, elev DDimer. TECHNIQUE: Imaging Protocol: Axial CT angiography was performed with multi-slice acquisition and mu lti-planar and/or 3D reconstructions. CONTRAST MATERIAL: Intravenous: Omnipaque 350. COMPARISON: CT RENAL COLIC WO CONTRAST from 01/31/2018 CR,XR XR PORTABLE CHEST AP from 10/22/2022 FINDINGS: CHEST: Tracheobronchial tree: Patent where visualized. Pulmonary parenchyma: No consolidation or dominant measurable mass. No architectural distortion. Pulmonary Arteries: The segmental and subsegmental pulmonary arteries are not well opacified due to t iming and volume of the bolus. No central pulmonary embolus is identified. Mediastinum and Maty: No dominant adenopathy or fluid collection. The esophagus is unremarkable. Visualized thyroid gland: There are nodule seen in the right lobe of the thyroid gland. The largest m easures 1.5 cm. Nonemergent thyroid ultrasound is recommended for further evaluation. Pleura: No effusion or pneumothorax. Heart: Cardiomegaly. Mild coronary artery calcification. No pericardial effusion. Aorta: The ascending thoracic aorta measures 4.3 x 4.7 cm. Atherosclerosis. Thoracic aorta is not wel l opacified for evaluation of aortic dissection. Bones: Within normal limits for the patient's age. Soft tissues: Unremarkable. ABDOMEN: Liver: Normal density. No measurable mass. Portal, Superior Mesenteric, and Splenic Veins: Unremarkable. Gallbladder and Biliary Tract: Cholelithiasis. No biliary ductal dilatation. Pancreas: Normal density, no abnormal calcifications or inflammatory process. Spleen: Normal. Adrenals: No masses seen. Kidneys: Normal size, contour and axis. No radiodense stones or obstructive uropathy. There are stabl e bilateral renal cysts. Parapelvic cysts are seen in the left kidney. There does appear to be a shiva yed left nephrogram. No ureterolithiasis or hydronephrosis is seen on the left. Abdominal Aorta: Abdominal portion non-dilated. Atherosclerosis. Bowel: No obstruction or bowel wall thickening. There is diverticulosis of the colon, but no evidence of acute diverticulitis. No evidence of appendicitis. Peritoneal Cavity: No ascites, collection or mesenteric inflammatory response. No free air. Lymph Nodes: Within normal limits. Bones: Within normal limits for the patient's age. Soft Tissues: There is a small fat containing midline anterior abdominal wall hernia. PELVIS: Bladder: Symmetric distention, no gross wall thickening. Reproductive Organs: Status post hysterectomy. Lymph Nodes: Within normal limits. Bones: Within normal limits. IMPRESSION: 1. No central pulmonary embolism. Please see the above discussion for complete details. 2. Ascending thoracic aortic aneurysm. It measures 4.7 x 4.3 cm. 3. No acute pulmonary infiltrates. 4. Mild cardiomegaly. 5. Cholelithiasis. No biliary ductal dilatation. 6. Bilateral renal cysts. 7. Mild delayed enhancement of the left kidney. No obvious stone or obstruction. There is marked sten osis seen of the left renal artery. RADIATION DOSE DELIVERED: 1,940.01mGy.cm Total DLP DATA REPOSITORY: All CT scans at this facility are submitted to the National Radiology Data Registry (NRDR) Dose Index Registry (DIR) with the [employer] (ACR). RADIATION OPTIMIZATION: All CT scans at this facility use at least one of these dose optimization te chniques: automated exposure control; mA and/or kV adjustment per patient size (includes targeted exa ms where dose is matched to clinical indication); or iterative reconstruction.
[2022-10-22 22:22] LABS: D-Dimer 806 ng/mlFEU (<500)
[2022-10-22] MEDS: MAGNESIUM SULFATE 1 GM/100 ML BAG IVPB (22:26)
[2022-10-22] MEDS: Omnipaque 350 MG/ML 100 ML BTL IJ (22:32)
[2022-10-22] MEDS: Normal Saline - Diluent 50 ML VIAL IJ (22:32)
[2022-10-22 22:57] LABS: Source Nasal/Nares
--- NOTE | 2022-10-22 23:19 | DI.VRAD_ITS ---
PROCEDURE INFORMATION: Exam: CTA Chest With Contrast CTA Abdomen With Contrast Exam date and time: 10/22/2022 10:31 PM Age: 72 years old Clinical indication: Other: Anterior pain; Abdominal pain; Localized; Patient HX: Anterior chest pain, upper abd pain, elevated ddimer TECHNIQUE: Imaging protocol: Computed tomographic angiography of the chest with contrast. Computed tomographic angiography of the abdomen with contrast. 3D rendering (Not supervised by radiologist): MIP and/or 3D reconstructed images were created by the technologist. COMPARISON: XR PORTABLE CHEST AP 10/22/2022 9:18 PM FINDINGS: VASCULATURE: Pulmonary arteries: Pulmonary artery is well opacified. No embolism. Aorta: Thoracic aorta atherosclerotic changes. Ascending aorta with aneurysmal change at 4.8 cm AP x 4.3 cm transversely. No acute features. No dissection. Descending thoracic aorta with atherosclerotic calcium. No aneurysm. Abdominal aorta atherosclerotic calcium. No aneurysm. Celiac trunk and mesenteric arteries: Celiac artery origin without significant stenosis. Mild atherosclerotic calcium. Superior mesenteric artery origin atherosclerotic calcium without significant stenosis. Renal arteries: Right renal artery origin atherosclerotic calcium with mild stenosis. Left renal artery origin severe atherosclerotic calcium and severe stenosis. Thyroid: Right thyroid nodularity. Atrophy of the left thyroid lobe. Recommend clinical correlation. Thyroid ultrasound and serology correlation may be warranted. CHEST: Lungs: No focal lung infiltrates. No evidence of pulmonary edema or interstitial edema. Mild bronchial wall thickening of the mid to lower lung eduardo may represent a component of bronchitis. No endobronchial debris or fluid levels evident. Pleural spaces: No pleural effusion. Heart: Mild cardiac enlargement. No pericardial effusion. Mitral valve annulus calcium of moderate severity. Minor aortic valve annulus calcium. Minor coronary artery atherosclerotic calcium. No pericardial effusion. ABDOMEN AND PELVIS: Liver: The liver is normal in size, contour and attenuation. Gallbladder and bile ducts: Multiple gallstones within the gallbladder. Gallbladder distention. No acute biliary tract findings. Pancreas: The pancreas is normal in contour and attenuation. Spleen: The spleen is normal in size, contour and attenuation. Adrenal glands: The adrenal glands are normal in size and contour bilaterally. Kidneys and ureters: Right kidney with subcentimeter cyst. Left kidney with multiple cysts. Parapelvic cysts. Large exophytic lower pole cyst measuring nearly 10 cm. No further imaging follow-up recommended based on MIPS criteria. Left renal mild to moderate parenchymal atrophy. Stomach and bowel: Gastric morphology is unremarkable. No edema. No gastric outlet obstruction. Small hiatal hernia. No acute features.Small bowel loops are normal in course and caliber. There is no mucosal edema or bowel wall thickening. No obstructive features. The colon contains formed fecal material. There is no bowel wall thickening. No inflammatory features. No obstruction. Intraperitoneal space: Unremarkable. No free air. No significant fluid collection. Urinary bladder: Urinary bladder is unremarkable in appearance. No wall thickening. No intravesicular calculi. No intravesicular gas. Reproductive: Previous hysterectomy. Lymph nodes: Unremarkable. No enlarged lymph nodes. Bones/joints: Thoracic spine degenerative changes. No acute thoracic skeletal features. Degenerative lumbar spine disease. Moderate to severe spinal stenosis L3-L4 and L4-L5. Multilevel degenerative facet disease. Soft tissues: Chest wall soft tissues are unremarkable. IMPRESSION: 1. 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 4.8 x 4.3 cm. No acute dissection. No previous imaging for comparison. 2. No pulmonary arterial embolism. 3. No acute lung infiltrates. Mild bronchial wall thickening may represent bronchitis. 4. Mild cardiac enlargement. 5. Abdominal aortic atherosclerotic calcium. No aneurysm. 6. Left renal artery severe atherosclerotic calcium and severe stenosis. Right renal artery origin mild stenosis. 7. Multiple gallstones. No acute biliary tract findings. 8. Renal cysts. 9. Previous hysterectomy. 10. Degenerative thoracolumbar spine disease. Moderate to severe spinal stenosis L3-L4 and L4-L5. Dictated and Authenticated by: Ryan Rogers MD. Ordering:LOREE Beyer MD
[2022-10-22] MEDS: MORPHine 10 MG/ML VIAL 2 MG IVP (23:40)
--- NOTE | 2022-10-22 23:45 | W.PM.HP.N ---
Date of service: 10/22/22 Time of Service: 23:45 Assessment and Plan Assessment and plan (1) Hypertensive urgency: Start date: 10/22/22 Status: Acute Assessment and plan: This is a 72-year-old lady who presented with atypical chest pain and shortness of breath with probable gallbladder colic by history but had no radiation of the discomfort and in the ED most prominent finding was uncontrolled high blood pressure. CTA did reveal no acute emboli but renal artery stenosis which may be at play for her hypertension lability. She is on multiple medications which would be modified with Cardizem to be split dosing along with addition of metoprolol with split dosing and topical Nitropaste since nitroglycerin was helpful with her acute elevation of blood pressure. She may need further evaluation for renal artery stenosis and she already is on an ARB with hydrochlorothiazide combination. This will be continued along with the above modification of her medical therapy. Patient will have troponins trended and echocardiogram if available. She is a full code. (2) Atypical chest pain: Start date: 10/22/22 Status: Acute Assessment and plan: Patient had negative troponin upon initial management and this will be trended. Cardiac monitoring. Better blood pressure and heart rate control with additional medical therapy as discussed under hypertension. The patient's chest pressure appears to be mostly associated with her right upper abdomen discomfort with probable gallbladder colic. There is no radiation to the back. There were no aneurysm seen on CTA of the abdomen and chest. (3) Cholelithiasis: Status: Chronic Assessment and plan: Patient was unaware of having gallstones and this will be further evaluated with ultrasound of the gallbladder in the morning. Trend liver functions. (4) Atrial fibrillation: Status: Chronic Assessment and plan: Slight elevation in heart rate with patient's discomfort. Metoprolol 25 mg every 6 hours in addition to her usual Cardizem with split dosing at 90 mg every 6 hours. Cardiac monitoring and adjust medical therapy as needed. Pain management may also help her tachycardia. She is already on Eliquis. She did receive 1 full dose aspirin which will not be continued at this time unless troponins become positive. If troponins are positive we also should consider adding statin to her medical regimen. This does not need to be done immediately with the patient not having any evidence of cardiac ischemia at this time and she may have had side effects to this in the past though she carries a diagnosis of hyperlipidemia. Qualifiers: Atrial fibrillation type: longstanding persistent Qualified Code(s): I48.11 - Longstanding persistent atrial fibrillation (5) Hypomagnesemia: Start date: 10/22/22 Status: Acute Assessment and plan: IV magnesium was given in the ED and follow-up in his him daily with repletion as needed. History of Present Illness History of Present Illness Chief Complaint: Dyspnea with chest pressure Narrative: This is a 72-year-old female patient who works at [employer] and was driving to work after eating lunch when she began to have chest pressure with some shortness of breath without radiation of the discomfort. It had been slightly present late morning after light breakfast and she had a turkey sandwich for lunch when it got worse. She did not know that she had gallstones and does not describe a colicky type pain but is uncomfortable over her right upper abdomen. Her dyspnea was associated with the discomfort but not exertion. She has a history of atrial fibrillation with chronic anticoagulation with Eliquis. She denies any new peripheral edema having some chronic nonpitting edema. She is overweight. She does not remember any postprandial symptoms in the past. Her blood pressure has been difficult to control and in the ED was exacerbated with nitroglycerin sublingually helping and she had a negative evaluation for acute cardiac ischemia. She did have slight elevation in her heart rate on Cardizem chronically and having been on metoprolol in the past but changed to Cardizem for reasons unknown. She denies any history of myocardial infarction but does have risk including hyperlipidemia and prediabetic state along with her obesity and chronic hypertension. Imaging in the ED did reveal cholelithiasis but no mention of cholecystitis. Also renal artery stenosis was identified and can be followed up as a possible reason for exacerbation of hypertension or difficult to control hypertension. At the time I saw her she was comfortable with no discomfort lying in bed with her head at a 45 degree angle. Patient is a full code. Review of Systems Narrative: 13 point review of systems otherwise unrevealing or stable. Patient is overweight but this has been chronic and stable and is stated she has had no worsening peripheral edema with chronic edema secondary to her obesity. She does have a history of TSH elevation though she is not on treatment for hypothyroidism and prediabetes though she is not on treatment for hyperglycemia. 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) OS 20/40 05/31/21 TSH elevation (Acute 06/22/17) n= 3.74, her result 3.81 Snoring (Acute 02/02/13) Jayce ordered sleep consult 01/2013 Morbid obesity (Acute 02/02/13) 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 Essential hypertension (Chronic 09/17/11) goal BP 140/90 Atrial fibrillation (Chronic 05/19/12) Onset 2011, Holter 12/2011 AFib throughout, ECHO 12/2008 LVEF 65%+LVH Permanent, clinically silent 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 Medical History Advanced directive placed in chart this admission (02/15/18) Afib Back pain Benign paroxysmal positional vertigo (09/17/11) Depression Diverticulosis Diverticulosis of colon (02/15/18) Fatty infiltration of liver (02/15/18) Gallstones Hyperlipidemia Hypertension Impaired ambulation Memory loss Morbid obesity Pneumonia of left lower lobe due to infectious organism (12/09/16) Right shoulder pain Seizure disorder (09/17/11) Snoring Vitreomacular traction syndrome of both eyes Surgical History Brain Surgery, 05/11/1993 Neurosurgery [facility] – [place], 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, 2002 Excessive bleeding Family History Mother Diabetes Essential hypertension Heart disease Stroke Father Heart disease Stroke Social History Smoking/Tobacco Use Status: Never Smoking risk assessment performed?: Yes Alcohol Intake: never Drug use: Never Substance use type: does not use Household members: none Housing: other Communication Needs: Corrective Lenses current occupation: works at [employer] Pets and animals: Yes Pets and animals: cat(s) What is your relationship status?: How often do you talk on the phone with friends or family?: once per week Panel score (0-1 are the most socially isolated patients): 0 What type of physical activity do you participate in: other Details: physically active at work Seatbelt use: always Drive intox or ride w/intox corrugated fastener driver: No Working smoke detector in home: Yes Fire extinguisher in home: Yes Carbon monox detector in home: Yes Do you feel safe at home: Yes Do you feel safe in your relationship?: Yes Meds Allergies and Home Medications Allergies Allergy/AdvReac Type Severity Reaction Status Date / Time phenobarbital Allergy Intermediate rash Verified 10/22/22 21:37 Home Medications Medication Instructions Recorded Confirmed Type multivitamin (Daily Multi-Vitamin 1 ea PO DAILY 01/03/13 10/22/22 History tablet) ascorbate calcium (vitamin C) 500 500 mg PO DAILY 06/24/22 10/22/22 History mg tablet citalopram 20 mg tablet 20 mg PO QHS #90 tabs 09/16/22 10/22/22 Rx valsartan 160 1 tab PO DAILY HTN #90 tabs 09/16/22 10/22/22 Rx mg-hydrochlorothiazide 25 mg tablet apixaban 5 mg tablet 5 mg PO BID blood thinner #180 tabs 09/21/22 10/22/22 Rx diltiazem HCl 360 mg 360 mg PO DAILY #90 caps 09/24/22 10/22/22 Rx capsule,extended release 24 hr vitamin B complex (Complex B-100 1 tab PO DAILY 10/01/22 10/22/22 History tablet,extended release) Exam Narrative Exam Narrative: General: Patient appears older than stated age, morbidly obese, alert and oriented x3 and in no acute distress. HEENT: Normocephalic, eyes with pupils equal and reactive to light symmetrically, extraocular movement intact and sclera anicteric. Oropharynx with moist mucosa. Coarsened facial features. Neck: Supple without JVD. Back: Stooped posture without CVA tenderness. Lungs: Poor aeration and poor inspiratory effort but clear vesicular breath sounds without focalizing rales or rhonchi. No expiratory wheeze. Breast: Exam deferred. Heart: Irregularly irregular rhythm with intermittent tachycardic rate. No murmurs or gallops appreciated. Abdomen: Obese contour, tender to palpation of the right upper quadrant with guarding but no true Lawson sign. No rebound. No palpable hepatosplenomegaly. Bowel sounds positive in all quadrants. Genitalia/rectal: Exam deferred. Extremities: Without clubbing, cyanosis or grossly pitting edema with moderate nonpitting edema both lower extremities. There may be trace pitting. Fair capillary refill. Skin: Pale, warm and dry. Neuro: Corneal nerves II to XII is intact, no focalizing motor deficits and no tremor. Psych: Flattened affect with slightly depressed mood. No abnormal thought processes. Remote and recent memory intact. Results Imaging Imaging Studies: CTA Chest With Contrast CTA Abdomen With Contrast Exam date and time: 10/22/2022 10:31 PM Age: 72 years old Clinical indication: Other: Anterior pain; Abdominal pain; Localized; Patient HX: Anterior chest pain, upper abd pain, elevated ddimer TECHNIQUE: Imaging protocol: Computed tomographic angiography of the chest with contrast. Computed tomographic angiography of the abdomen with contrast. 3D rendering (Not supervised by radiologist): MIP and/or 3D reconstructed images were created by the technologist. COMPARISON: XR PORTABLE CHEST AP 10/22/2022 9:18 PM FINDINGS: VASCULATURE: Pulmonary arteries: Pulmonary artery is well opacified. No embolism. Aorta: Thoracic aorta atherosclerotic changes. Ascending aorta with aneurysmal change at 4.8 cm AP x 4.3 cm transversely. No acute features. No dissection. Descending thoracic aorta with atherosclerotic calcium. No aneurysm. Abdominal aorta atherosclerotic calcium. No aneurysm. Celiac trunk and mesenteric arteries: Celiac artery origin without significant stenosis. Mild atherosclerotic calcium. Superior mesenteric artery origin atherosclerotic calcium without significant stenosis. Renal arteries: Right renal artery origin atherosclerotic calcium with mild stenosis. Left renal artery origin severe atherosclerotic calcium and severe stenosis. Thyroid: Right thyroid nodularity. Atrophy of the left thyroid lobe. Recommend clinical correlation. Thyroid ultrasound and serology correlation may be warranted. CHEST: Lungs: No focal lung infiltrates. No evidence of pulmonary edema or interstitial edema. Mild bronchial wall thickening of the mid to lower lung eduardo may represent a component of bronchitis. No endobronchial debris or fluid levels evident. Pleural spaces: No pleural effusion. Heart: Mild cardiac enlargement. No pericardial effusion. Mitral valve annulus calcium of moderate severity. Minor aortic valve annulus calcium. Minor coronary artery atherosclerotic calcium. No pericardial effusion. ABDOMEN AND PELVIS: Liver: The liver is normal in size, contour and attenuation. Gallbladder and bile ducts: Multiple gallstones within the gallbladder. Gallbladder distention. No acute biliary tract findings. Pancreas: The pancreas is normal in contour and attenuation. Spleen: The spleen is normal in size, contour and attenuation. Adrenal glands: The adrenal glands are normal in size and contour bilaterally. Kidneys and ureters: Right kidney with subcentimeter cyst. Left kidney with multiple cysts. Parapelvic cysts. Large exophytic lower pole cyst measuring nearly 10 cm. No further imaging follow-up recommended based on MIPS criteria. Left renal mild to moderate parenchymal atrophy. Stomach and bowel: Gastric morphology is unremarkable. No edema. No gastric outlet obstruction. Small hiatal hernia. No acute features.Small bowel loops are normal in course and caliber. There is no mucosal edema or bowel wall thickening. No obstructive features. The colon contains formed fecal material. There is no bowel wall thickening. No inflammatory features. No obstruction. Intraperitoneal space: Unremarkable. No free air. No significant fluid collection. Urinary bladder: Urinary bladder is unremarkable in appearance. No wall thickening. No intravesicular calculi. No intravesicular gas. Reproductive: Previous hysterectomy. Lymph nodes: Unremarkable. No enlarged lymph nodes. Bones/joints: Thoracic spine degenerative changes. No acute thoracic skeletal features. Degenerative lumbar spine disease. Moderate to severe spinal stenosis L3-L4 and L4-L5. Multilevel degenerative facet disease. Soft tissues: Chest wall soft tissues are unremarkable. IMPRESSION: 1. 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 4.8 x 4.3 cm. No acute dissection. No previous imaging for comparison. 2. No pulmonary arterial embolism. 3. No acute lung infiltrates. Mild bronchial wall thickening may represent bronchitis. 4. Mild cardiac enlargement. 5. Abdominal aortic atherosclerotic calcium. No aneurysm. 6. Left renal artery severe atherosclerotic calcium and severe stenosis. Right renal artery origin mild stenosis. 7. Multiple gallstones. No acute biliary tract findings. 8. Renal cysts. 9. Previous hysterectomy. 10. Degenerative thoracolumbar spine disease. Moderate to severe spinal stenosis L3-L4 and L4-L5. Labs 10/22/22 21:30 10/22/22 21:30 Labs: Laboratory Results - last 24 hr 10/22/22 10/22/22 10/22/22 21:30 21:30 21:30 WBC 10.09 RBC 4.88 Hgb 14.6 Hct 45.3 MCV 93 MCH 29.9 MCHC 32.2 RDW 13.2 Plt Count 273 MPV 9.5 Immature Gran % 0.3 Neutrophils % 54.3 Lymphocytes % 34.2 Monocytes % 8.2 Eosinophils % 2.5 Basophils % 0.5 Nucleated RBC % 0.0 Absolute Neutrophils 5.48 Absolute Lymphocytes 3.45 H Absolute Monocytes 0.83 H Absolute Eosinophils 0.25 Absolute Basophils 0.05 PT 10.7 INR 1.1 APTT 28.4 D-Dimer 806 H Sodium 142 Potassium 3.5 Chloride 102 Carbon Dioxide 31.9 Anion Gap 8.1 BUN 13 Creatinine 0.9 Est GFR (CKD-EPI 2020) 68.77 Glucose 106 Calcium 9.6 Magnesium 1.7 L Total Bilirubin 0.4 AST 20 ALT 21 Alkaline Phosphatase 80 Troponin I < 50 NT-Pro-B Natriuret Pep Total Protein 8.1 Albumin 4.2 COVID-19 Source 10/22/22 10/22/22 21:30 22:52 WBC RBC Hgb Hct MCV MCH MCHC RDW Plt Count MPV Immature Gran % Neutrophils % Lymphocytes % Monocytes % Eosinophils % Basophils % Nucleated RBC % Absolute Neutrophils Absolute Lymphocytes Absolute Monocytes Absolute Eosinophils Absolute Basophils PT INR APTT D-Dimer Sodium Potassium Chloride Carbon Dioxide Anion Gap BUN Creatinine Est GFR (CKD-EPI 2020) Glucose Calcium Magnesium Total Bilirubin AST ALT Alkaline Phosphatase Troponin I NT-Pro-B Natriuret Pep 1118 H Total Protein Albumin COVID-19 Source Nasal/Nares Last Vital Signs Temp 37.2 C 10/22/22 21:18 Pulse 90 10/22/22 23:01 Resp 19 10/22/22 23:08 BP 184/101 H 10/22/22 23:01 Pulse Ox 99 10/22/22 23:08 Time Spent Time spent with Patient: >75 minutes Time was spent: preparing to see the patient(eg.review tests), obtaining and/or reviewing separately otained hiistory, ordering medications,tests, procedures, indepentently interpreting results, counseling the patient and care coordination
[2022-10-22 23:52] LABS: COVID-19 PCR Negative (Negative)
[2022-10-23] VITALS (20 sets, daily range): BP systolic 98–154; BP diastolic 53–90; PULSE 60–107; RESP 12–25; TEMP 36.6–37.1; O2SAT 92–98
--- NOTE | 2022-10-23 | DI.US_ITS ---
APPROVED REPORT EXAM: Comprehensive 2D, Doppler, and color-flow Echocardiogram Patient Location: In-Patient Room/Bed: 227 Visual Display Associate: Aida Fan RDCS (AE) Indications: Chest pain Other Information Study Quality: Fair. Technically limited study due to body habitus. Conclusion Normal left ventricular wall thickness and chamber size. Patient is in atrial fibrillation with beat -to-beat variation. Ejection fraction is approximately 55%. No wall motion abnormalities are identi fied Normal right ventricular size and systolic function Both atria are severely dilated Aortic valve is calcified and probably trileaflet. There is mild aortic regurgitation. There is mil d aortic stenosis. Mean gradient is 16 mmHg. Calculated aortic valve area is 1.44 cm?? Moderate mitral annular calcification Mild to moderate mitral regurgitation Normal tricuspid valve with moderate regurgitation. Estimated right ventricular systolic pressure is 43 mmHg Dilated ascending aorta measuring 3.97 cm Wall motion Left Ventricle The left ventricle is normal size. The left ventricular systolic function is normal. The left ventric ular ejection fraction is within the normal range. There is normal left ventricular wall thickness. T here is normal LV segmental wall motion. There is no ventricular septal defect visualized. LVEF is 55 %. Right Ventricle The right ventricle is normal size. The right ventricular systolic function is normal. The RVSP is 43 .3mmHg. Atria Left atrium is severely dilated. Right atrium is severely dilated. The interatrial septum is intact w ith no evidence for an atrial septal defect. Aortic Valve Aortic valve is calcified. Aortic valve is probably trileaflet. Mild aortic stenosis. Peak aortic va lve gradient is 25.2mmHg. Highest mean aortic valve gradient is 15.9mmHg. Calculated RITA by the prem nuity equation is 1.44cm2. Mild aortic regurgitation. Mitral Valve Moderate mitral annular calcification. No evidence of mitral valve stenosis. Mild to moderate mitral regurgitation. Tricuspid Valve The tricuspid valve is normal in structure. There is no tricuspid valve stenosis. Moderate tricuspid regurgitation. Pulmonic Valve The pulmonary valve is normal in structure. There is no pulmonic valvular stenosis. Trace pulmonic re gurgitation. Great Vessels The aortic root is normal in size. The ascending aorta is moderately dilated. Aortic arch is normal i n caliber. The IVC is plethoric. Pericardium There is no pericardial effusion. 2D Dimensions IVSD d PLAX 0.85 cm F: 0.6-1.0 LV Vol A2C d MOD 117.3 mL LVPW d PLAX 1.02 cm F: 0.6 - 1.0 LV Vol A4C d MOD 110.4 mL LVID d PLAX 4.27 cm F: 3.8 - 5.2 LA vol/ BSA A2C s A-L 69.0 mL/m2 LVDs 3.20 cm F: 2.2 - 3.5 LA vol/ BSA A4C s A-L 67.7 mL/m2 Ao Root d 3.16 cm F: 2.7 - 3.3 LA Vol/ BSA Biplane s A-L 68.9 mL/m2 RA Area A4C 26.15 cm2 LA Area A4C s MOD 38.64 cm2 RA Vol/ BSA A4C s A-L 37.2 mL/m2 LA Area A2C s MOD 39.30 cm2 Ao Asc Diam d 3.97 cm F: 2.3 - 3.1 LV EF A4C MOD 45.8 % LV EF Teichholz 48.7 % LV EF A2C MOD 45.6 % LVEF ([place]ne's) 44.78 % F: 54 - 74 LV EF Biplane MOD 44.8 % LV Volume 81.47 mL F: 46 - 106 SV 51.17 mL LV Volume Index 34.66 mL/m2 F: 29 - 61 SV Index 21.80 mL/m2 LV Vol Biplane MOD 114.3 mL FS 24.35 % M-Mode TAPSE 2.05 cm (M/F) >1.7 LV Diastology MV E' medial 0.109 (>0.07 m/s) MV E Vmax 1.17 (0.4-1.3 m/s) LV E/e MED 10.65 (<14) MV E' lateral 0.134 (>0.1 m/s) LV E/e LAT 8.70 (<14) MV E/E' medial 10.69 MV E/E' lateral 8.73 Aortic Valve LVOT Area 3.17 cm2 AoV Area Vmax 1.44 cm2 LVOT Vmax 1.14 m/s AoV Area/ BSA (Vmax) 0.61 cm2/m2 LVOT Mean Med. 0.81 m/s RITA Mean Med. 1.34 cm2 LVOT Peak Grad 5.2 mmHg RITA Mean Med. Index 0.57 cm2/m2 LVOT Mean Grad 3.0 mmHg AR DT 1637 msec LVOT VTI 0.218 m AR PHT 475 msec LVOT Diam s 2.00 cm AoV Vmax 2.51 m/s Velocity Ratio 0.45 AoV Mean Med. 1.93 m/s AoV Peak Grad 25.2 mmHg LVOT SV 69.03 mL AoV Mean Grad 15.9 mmHg AoV VTI 0.522 m AoV Area VTI 1.32 cm2 AoV Area/ BSA (VTI) 0.56 cm/m2 Mitral Valve MV DT 199 (160-240 msec) MR Vmax 5.38 m/s MV PHT 58 msec MR VTI 1.616 m MV Area PHT 3.82 cm2 MR Peak Grad 115.7 mmHg MV VTI 0.267 m MR Mean Grad 81.4 mmHg MV VTI Annulus 0.261 m MR PISA Radius 0.43 cm MV Area VTI 2.53 (4.0-6.0 cm2) MR EROA 0.08 cm2 MR Aliasing Velocity 0.35 m/s MR PISA 1.16 cm2 Pulmonary Valve PV Vmax 0.98 (0.5-1.5 m/s) RVOT Peak Gr. 1.16 mmHg PV Peak Grad 3.8 mmHg RVOT Mean Gr. 0.60 mmHg PV Mean Grad 2.1 mmHg RVOT VTI 0.122 m PV VTI 0.188 m RVOT Vmax 0.54 m/s Tricuspid Valve TR Peak Grad 35.2 mmHg TR Vmax 2.97 m/s RA Pressure 8.00 mmHg RVSP (TR) 43.3 mmHg
[2022-10-23 00:36] LABS: TSH (W/Ref FT4) 4.66 uIU/mL (0.36-3.74)
[2022-10-23 00:40] LABS: Bilirubin Negative (Negative); Blood Negative (Negative); Clarity Clear (Clear); Glucose Negative (Negative); Ketones Negative (Negative); Leukocyte Esterase Negative (Negative); Nitrite Negative (Negative); Specific Gravity 1.015 (1.005-1.025); Urobilinogen 0.2 EU/dL (Up TO 0.2)
[2022-10-23 00:43] LABS: Bacteria Rare HPF (Negative); C & S Indicated? No; Casts Negative LPF (Negative); Crystals Negative HPF (Negative); Epithelial Cells Rare HPF (Negative); Mucus Negative (Negative); RBC Negative HPF (0-2); WBC Negative HPF (0-5)
[2022-10-23 00:55] LABS: FREE T4 1.32 ng/dL (0.76-1.46)
[2022-10-23 01:00] LABS: Troponin I < 50 ng/L (<or=60)
[2022-10-23] MEDS: nitroGLYcerin 2% 1 INCH/1 GM PKT TP ×2 (03:34→10:18)
[2022-10-23] MEDS: Metoprolol 25 MG TAB PO ×3 (03:35→19:07)
[2022-10-23] MEDS: dilTIAZem 60 MG TAB 90 MG PO ×3 (03:35→18:05)
[2022-10-23] MEDS: Citalopram 20 MG TAB PO ×2 (03:36→21:31)
[2022-10-23 06:34] LABS: HCT 37.3 % (36.0-46.0); HGB 12.6 g/dL (11.2-15.7); MCH 30.7 pg (27.0-33.0); MCHC 33.8 % (32.0-36.0); MCV 91 fL (80-95); MPV 9.8 fL (8.0-11.0); Platelet Count 211 10^3/uL (130-400); RDW 13.2 % (11.7-14.6); WBC 9.46 10^3/uL (4.4-10.8)
[2022-10-23 06:51] LABS: ALT 20 U/L (14-59); AST 26 U/L (15-37); Albumin 3.2 g/dL (3.4-5.0); Alkaline Phosphatase 63 U/L (46-116); Anion Gap 4.8 mmol/L (3-11); BUN 11 mg/dL (7-18); Bilirubin, Total 0.6 mg/dL (0.2-1.0); CO2 30.2 mmol/L (21.0-32.0); CREATININE 0.7 mg/dL (0.55-1.02); Calcium 8.7 mg/dL (8.5-10.1); Chloride 104 mmol/L (98-107); Estimated GFR 92.98 (mL/min/1.73m2); Glucose 128 mg/dL (74-106); Magnesium 1.9 mg/dL (1.8-2.4); Potassium 3.6 mmol/L (3.5-5.1); Sodium 139 mmol/L (136-145); Total Protein 6.3 g/dL (6.4-8.2)
[2022-10-23 06:52] LABS: Troponin I < 50 ng/L (<or=60)
--- NOTE | 2022-10-23 08:00 | DI.US_ITS ---
Exam(s) US ABDOMEN LIMITED EXAM: US ABDOMEN LIMITED CLINICAL HISTORY: Atypical chest pain with cholelithiasis TECHNIQUE: Ultrasound abdomen performed using standard protocol. COMPARISON: CT CT CHEST PE ABD PELVIS W from 10/22/2022 FINDINGS: PANCREAS: Normal where visualized. LIVER: Normal. Hepatopedal flow in the Portal Vein. The liver measures in 20.4 cm length. GALLBLADDER:Numerous stones are seen within the gallbladder. There is a 3.1 cm stone in the gallblad aditi neck. The gallbladder wall measures 5.9 mm. No pericholecystic fluid identified. BILIARY SYSTEM: Common bile duct measures < 7 mm. No intrahepatic biliary ductal dilation. LAWSON'S SIGN: Negative. RIGHT KIDNEY: Kidney is normal in size. No evidence of renal calculi. No evidence of hydronephrosis. No renal mass or cyst identified. ASCITES: None seen. IMPRESSION: 1. Cholelithiasis. No biliary ductal dilatation. Negative Lawson sign. 2. Hepatomegaly. DATA REPOSITORY:
[2022-10-23] MEDS: Apixaban 5 MG TAB PO ×2 (08:02→19:07)
[2022-10-23] MEDS: Ascorbic Acid 500 MG TAB PO (08:02)
[2022-10-23] MEDS: Valsartan 80 MG TAB 160 MG PO (08:02)
[2022-10-23] MEDS: hydroCHLOROthiazide 25 MG TAB PO (08:02)
[2022-10-23] MEDS: Vitamins B Comp w/C TAB 1 TAB PO (08:02)
[2022-10-23] MEDS: Multivitamin TAB 1 TAB PO (08:03)
--- NOTE | 2022-10-23 11:57 | PDOC.CMIN ---
- If Service Date Differs Date of service: 10/23/22 Time of Service: 11:57 Care Management Initial Assess REASON FOR HOSPITALIZATION:: Atypical chest pain PAST MEDICAL HISTORY/PAST SURGICAL HISTORY:: All Active Problems. Hypomagnesemia (Acute). Cholelithiasis (Chronic). Atypical chest pain (Acute). Hypertensive urgency (Acute). Localized edema (Acute). Pain, foot (Acute). Corns and callosities (Acute). Nail dystrophy (Acute). [place] cardiac risk 10-20% in next 10 years (Chronic). 2020 12.9%. Hypercholesterolemia (Chronic ~06/26/21). Chronic anticoagulation (Chronic). Depressive disorder (Chronic 09/17/11). W/LOBECTOMY. Pre-diabetes (Chronic ~2016). 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 OS 20/40 05/31/21. TSH elevation (Acute 06/22/17). n= 3.74, her result 3.81. Snoring (Acute 02/02/13). Jayce ordered sleep consult 01/2013. Morbid obesity (Acute 02/02/13). 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 Essential hypertension (Chronic 09/17/11). goal BP 140/90. Atrial fibrillation (Chronic 05/19/12). Onset 2011, Holter 12/2011 AFib throughout, ECHO 12/2008 LVEF 65%+LVH. Permanent, clinically silent. Managed with rate control ASA. 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 Medical History. Advanced directive placed in chart this admission (02/15/18). Afib. Back pain. Benign paroxysmal positional vertigo (09/17/11). Depression. Diverticulosis. Diverticulosis of colon (02/15/18). Fatty infiltration of liver (02/15/18). Gallstones. Hyperlipidemia. Hypertension. Impaired ambulation. Memory loss. Morbid obesity. Pneumonia of left lower lobe due to infectious organism (12/09/16). Right shoulder pain. Seizure disorder (09/17/11). Snoring. Vitreomacular traction syndrome of both eyes. Surgical History. [place] Surgery, 05/11/1993[place] [facility] [place] s/p encephalitis with SZ. NOEMY/BSO, 2002. Excessive bleeding PREVIOUS FUNCTIONAL STATUS/SOCIAL/FAMILY SUPPORTS:: Roberta lives alone in [place]. Her and son have both (several years ago), and she continues to mourn the loss. 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 She is independent with ADL's, and has neighbors/friends that support her when needed. CURRENT FUNCTIONAL STATUS:: Roberta was sitting up in her chair when CM met with her. She was pleasant and engaged in conversation. She discussed how she keeps busy by working four days a week, and she has friends that she plays cards with on her down time. She had an echo this morning, awaiting results. She reported that she has a high copay for her eliquis. CM discussed the discount cards, and she stated that she used to have a lower premium, but no longer receives the discount, as her insurance changed. CM will continue to follow. ADVANCE DIRECTIVES:: Not on file. Has patient been provided with info about the portal/API?: Yes Did the patient sign up for the portal?: No CODE STATUS:: Full Code INSURANCE COVERAGE / FINANCIAL ISSUES:: MVP MCR replacement CURRENT HOME/COMMUNITY SERVICES/EQUIPMENT:: None PRIMARY CARE PHYSICIAN:: Tiffany Patino POTENTIAL DISCHARGE NEEDS:: Evaluations for further needs, follow up appointments. PATIENT/FAMILY EDUCATION NEEDS:: Review discharge instructions and limitations, discussion of self care needs including ask me three. ANTICIPATED BARRIERS TO DISCHARGE:: None. TRANSPORTATION:: via private vehicle by a friend vs RCT. PLAN:: Anticipate Roberta will return home once medically cleared. She will be driven home via private vehicle by a friend vs RCT. She will follow up with her PCP and discharge plan of care. CM will continue to follow.
--- NOTE | 2022-10-23 17:30 | PGE_ITS ---
Date of Service Date of service: 10/23/22 Time of Service: 17:31 Assessment and Plan Assessment and plan (1) Hypertensive urgency: Start date: 10/22/22 Status: Acute Assessment and plan: BP is actually on the lower side this afternoon. I have decreased the dose of lopressor. Continue cardizem. Continue valsartan. Continue HCTZ. D/c nitroglycerin paste. (2) Atypical chest pain: Start date: 10/22/22 Status: Acute Assessment and plan: I am having vascular surgery at [facility] [place] look at the images to ensure no dissection. Continue BP control. MPI as outpatient. Vascular/cardiology follow up. Meanwhile, other sources of epigastric/RUQ/chest pain need to be considered. Pain after eating - ?gallbladder colic? gastric ulcer? Start PPI. Discussed a Low fat diet. Referral to general surgery as outpatient. (3) Thoracic ascending aortic aneurysm: Status: Acute Assessment and plan: As above BP control. Discuss with vascular surgery. (4) Left renal artery stenosis: Status: Acute Assessment and plan: On an ARB. Continue. Discuss with vascular surgery. (5) Cholelithiasis: Status: Chronic Assessment and plan: As above. No evidence of acute cholecystitis by ultrasound, but it does sound like every once in a while the patient gets a colic. Low fat diet. Referral to general surgery as outpatient. (6) Atrial fibrillation: Status: Chronic Assessment and plan: HR has been controlled. I have decreased her beta leopoldo dose and continued her current cardizem dose with holding parameters. On eliquis. Qualifiers: Atrial fibrillation type: longstanding persistent Qualified Code(s): I48.11 - Longstanding persistent atrial fibrillation (7) Hypomagnesemia: Start date: 10/22/22 Status: Resolved Assessment and plan: Recheck in am. (8) DVT prophylaxis: Status: Acute Assessment and plan: Continue eliquis (9) Discharge planning issues: Status: Acute Assessment and plan: Full code Anticipate discharge home tomorrow Subjective Subjective Interval history since last seen: Ms Hunter states that she has not had any chest pain today or shortness of breath. She does feel very full after eating and describes RUQ discomfort with some foods/epigastric discomfort after eating. We discussed how she may benefit from seeing a surgeon as an outpatient and follow a low fat diet. Denies dizziness, nausea now. Exam Narrative Exam Narrative: General: Pleasant elderly female who is sitting comfortably in a chair, A&Ox3, NAD HEENT: EOMI, MMM Heart: RRR, no m/r/g Lungs: CTAB Abdomen: soft, nontender, nondistended Extremities: BLE lymphedema Objective Last Vital Signs Temp 37.1 C 10/23/22 14:55 Pulse 64 10/23/22 16:19 Resp 16 10/23/22 16:19 BP 102/68 10/23/22 16:19 Pulse Ox 95 10/23/22 16:19 Laboratory Results - last 24 hr 10/22/22 10/22/22 10/22/22 21:30 21:30 21:30 WBC 10.09 RBC 4.88 Hgb 14.6 Hct 45.3 MCV 93 MCH 29.9 MCHC 32.2 RDW 13.2 Plt Count 273 MPV 9.5 Immature Gran % 0.3 Neutrophils % 54.3 Lymphocytes % 34.2 Monocytes % 8.2 Eosinophils % 2.5 Basophils % 0.5 Nucleated RBC % 0.0 Absolute Neutrophils 5.48 Absolute Lymphocytes 3.45 H Absolute Monocytes 0.83 H Absolute Eosinophils 0.25 Absolute Basophils 0.05 PT 10.7 INR 1.1 APTT 28.4 D-Dimer 806 H Sodium 142 Potassium 3.5 Chloride 102 Carbon Dioxide 31.9 Anion Gap 8.1 BUN 13 Creatinine 0.9 Est GFR (CKD-EPI 2020) 68.77 Glucose 106 Calcium 9.6 Magnesium 1.7 L Total Bilirubin 0.4 AST 20 ALT 21 Alkaline Phosphatase 80 Troponin I < 50 NT-Pro-B Natriuret Pep Total Protein 8.1 Albumin 4.2 TSH Free T4 Urine Color Urine Clarity Urine pH Ur Specific [place] Urine Protein Urine Ketones Urine Blood Urine Nitrite Urine Bilirubin Urine Urobilinogen Ur Leukocyte Esterase Urine RBC Urine WBC Ur Epithelial Cells Urine Crystals Urine Bacteria Urine Casts Urine Mucus Ur Culture Indicated? Urine Glucose COVID-19 Source SARS-CoV-2 (PCR) 10/22/22 10/22/22 10/22/22 21:30 21:30 22:52 WBC RBC Hgb Hct MCV MCH MCHC RDW Plt Count MPV Immature Gran % Neutrophils % Lymphocytes % Monocytes % Eosinophils % Basophils % Nucleated RBC % Absolute Neutrophils Absolute Lymphocytes Absolute Monocytes Absolute Eosinophils Absolute Basophils PT INR APTT D-Dimer Sodium Potassium Chloride Carbon Dioxide Anion Gap BUN Creatinine Est GFR (CKD-EPI 2020) Glucose Calcium Magnesium Total Bilirubin AST ALT Alkaline Phosphatase Troponin I NT-Pro-B Natriuret Pep 1118 H Total Protein Albumin TSH 4.66 H Free T4 1.32 Urine Color Urine Clarity Urine pH Ur Specific [place] Urine Protein Urine Ketones Urine Blood Urine Nitrite Urine Bilirubin Urine Urobilinogen Ur Leukocyte Esterase Urine RBC Urine WBC Ur Epithelial Cells Urine Crystals Urine Bacteria Urine Casts Urine Mucus Ur Culture Indicated? Urine Glucose COVID-19 Source Nasal/Nares SARS-CoV-2 (PCR) Negative 10/23/22 10/23/22 10/23/22 00:26 00:31 01:00 WBC RBC Hgb Hct MCV MCH MCHC RDW Plt Count MPV Immature Gran % Neutrophils % Lymphocytes % Monocytes % Eosinophils % Basophils % Nucleated RBC % Absolute Neutrophils Absolute Lymphocytes Absolute Monocytes Absolute Eosinophils Absolute Basophils PT INR APTT D-Dimer Sodium Potassium Chloride Carbon Dioxide Anion Gap BUN Creatinine Est GFR (CKD-EPI 2020) Glucose Calcium Magnesium Total Bilirubin AST ALT Alkaline Phosphatase Troponin I < 50 Cancelled NT-Pro-B Natriuret Pep Total Protein Albumin TSH Free T4 Urine Color Yellow Urine Clarity Clear Urine pH 6.0 Ur Specific [place] 1.015 Urine Protein 30 H Urine Ketones Negative Urine Blood Negative Urine Nitrite Negative Urine Bilirubin Negative Urine Urobilinogen 0.2 Ur Leukocyte Esterase Negative Urine RBC Negative Urine WBC Negative Ur Epithelial Cells Rare Urine Crystals Negative Urine Bacteria Rare Urine Casts Negative Urine Mucus Negative Ur Culture Indicated? No Urine Glucose Negative COVID-19 Source SARS-CoV-2 (PCR) 10/23/22 10/23/22 10/23/22 06:04 06:04 06:04 WBC 9.46 RBC 4.10 Hgb 12.6 D Hct 37.3 MCV 91 MCH 30.7 MCHC 33.8 RDW 13.2 Plt Count 211 MPV 9.8 Immature Gran % Neutrophils % Lymphocytes % Monocytes % Eosinophils % Basophils % Nucleated RBC % Absolute Neutrophils Absolute Lymphocytes Absolute Monocytes Absolute Eosinophils Absolute Basophils PT INR APTT D-Dimer Sodium 139 Potassium 3.6 Chloride 104 Carbon Dioxide 30.2 Anion Gap 4.8 BUN 11 Creatinine 0.7 Est GFR (CKD-EPI 2020) 92.98 Glucose 128 H Calcium 8.7 Magnesium 1.9 Total Bilirubin 0.6 AST 26 ALT 20 Alkaline Phosphatase 63 Troponin I < 50 NT-Pro-B Natriuret Pep Total Protein 6.3 L Albumin 3.2 L TSH Free T4 Urine Color Urine Clarity Urine pH Ur Specific [place] Urine Protein Urine Ketones Urine Blood Urine Nitrite Urine Bilirubin Urine Urobilinogen Ur Leukocyte Esterase Urine RBC Urine WBC Ur Epithelial Cells Urine Crystals Urine Bacteria Urine Casts Urine Mucus Ur Culture Indicated? Urine Glucose COVID-19 Source SARS-CoV-2 (PCR) Objective Narrative Objective Narrative: US abdomen: 1. Cholelithiasis.? No biliary ductal dilatation.? Negative Lawson sign. 2. Hepatomegaly.? Echo: Normal left ventricular wall thickness and chamber size.? Patient is in atrial fibrillation with [id number] variation.? Ejection fraction is approximately 55%.? No wall motion abnormalities are identified Normal right ventricular size and systolic function Both atria are severely dilated Aortic valve is calcified and probably trileaflet.? There is mild aortic regurgitation.? There is mild aortic stenosis.? Mean gradient is 16 mmHg.? Calculated aortic valve area is 1.44 cm?? Moderate mitral annular calcification Mild to moderate mitral regurgitation Normal tricuspid valve with moderate regurgitation.? Estimated right ventricular systolic pressure is 43 mmHg Dilated ascending aorta measuring 3.97 cm Time Spent with Patient Time Spent with Patient: 35-49 minutes Time was spent: preparing to see the patient(eg.review tests), obtaining and/or reviewing separately otained hiistory, ordering medications,tests, procedures, referring, communicating with other health team primary care physician, indepentently in terpreting results, counseling the patient and care coordination
[2022-10-23] MEDS: Pantoprazole 40 MG TABCR PO (18:05)
[2022-10-23] MEDS: Atorvastatin 40 MG TAB 80 MG PO (19:08)
[2022-10-24] VITALS (18 sets, daily range): BP systolic 120–173; BP diastolic 64–99; PULSE 75–99; RESP 16–20; TEMP 36.3–38.4; O2SAT 92–94
--- NOTE | 2022-10-24 | DI.RAD_ITS ---
Exam(s) XR ABDOMEN FLAT UPRIGHT EXAM: XR ABDOMEN FLAT UPRIGHT CLINICAL HISTORY: nausea/vomiting. TECHNIQUE: 2D digital imaging was performed. COMPARISON: No exams were available for comparison FINDINGS: 3 views The bowel gas pattern is nonspecific. There is no evidence of bowel obstruction nor free air. No ob vious masses nor bowel displacement. No abnormal calcifications seen over the kidneys in course of t he ureters. IMPRESSION: Nonspecific bowel gas pattern. DATA REPOSITORY: RADIATION DOSE DELIVERED:
[2022-10-24] MEDS: dilTIAZem 60 MG TAB 90 MG PO ×4 (00:33→19:42)
--- NOTE | 2022-10-24 05:45 | RT.EKG_ITS ---
APPROVED REPORT Exam: Resting ECG Reason for Exam: chest pain Patient Location: I HR:99 bpm ECG Measurements Heart Rate 99 AXIS MA [id number] P [id number] QRSd 93 QRS 14 QT 386 T 33 QTc 496 Conclusion Atrial fibrillation...V-rate 83-109, irreg A-activity
[2022-10-24] MEDS: nitroGLYcerin 0.4 MG TAB SL (06:19)
[2022-10-24 06:45] LABS: Abs Immature Grans 0.02 10^3/uL (0.0-0.06); Absolute Basophil Count 0.03 10^3/uL (0.0-0.2); Absolute Eosinophil Count 0.07 10^3/uL (0.0-0.7); Absolute Lymphocyte Count 1.99 10^3/uL (1.2-3.4); Absolute Monocyte Count 0.92 10^3/uL (0.1-0.8); Absolute Neutrophil Count 6.08 10^3/uL (1.2-6.7); Basophils % 0.3; Eosinophils % 0.8; HCT 40.9 % (36.0-46.0); HGB 13.2 g/dL (11.2-15.7); Immature Grans % 0.2; Lymphocytes % 21.8; MCH 29.7 pg (27.0-33.0); MCHC 32.3 % (32.0-36.0); MCV 92 fL (80-95); Monocytes % 10.1; Neutrophils % 66.8; Platelet Count 225 10^3/uL (130-400); RBC 4.44 10^6/uL (3.93-5.22); RDW 13.3 % (11.7-14.6); RDW-SD 45.5 fL; WBC 9.11 10^3/uL (4.4-10.8)
[2022-10-24 06:50] LABS: Troponin I < 50 ng/L (<or=60)
[2022-10-24 06:51] LABS: ALT 11 U/L (14-59); AST 26 U/L (15-37); Albumin 3.4 g/dL (3.4-5.0); Alkaline Phosphatase 67 U/L (46-116); Anion Gap 8.5 mmol/L (3-11); BUN 15 mg/dL (7-18); Bilirubin, Direct 0.2 mg/dL (0.0-0.2); Bilirubin, Total 0.8 mg/dL (0.2-1.0); CO2 27.5 mmol/L (21.0-32.0); CREATININE 0.8 mg/dL (0.55-1.02); Calcium 8.9 mg/dL (8.5-10.1); Chloride 103 mmol/L (98-107); Estimated GFR 79.22 (mL/min/1.73m2); Glucose 118 mg/dL (74-106); Lipase 27 U/L (16-77); Magnesium 1.6 mg/dL (1.8-2.4); Potassium 3.8 mmol/L (3.5-5.1); Sodium 139 mmol/L (136-145); Total Protein 6.8 g/dL (6.4-8.2)
[2022-10-24] MEDS: Normal Saline 500 ML 30 ML IV (08:21)
[2022-10-24] MEDS: MAGNESIUM SULFATE 2 GM/50 ML BAG IVPB (08:22)
[2022-10-24] MEDS: Ondansetron 4 MG/2 ML VIAL IVP ×2 (09:58→16:49)
[2022-10-24] MEDS: Magnesium Oxide 400 MG TAB PO ×2 (12:02→19:43)
[2022-10-24] MEDS: Metoprolol 25 MG TAB PO ×2 (12:02→21:35)
[2022-10-24] MEDS: Vitamins B Comp w/C TAB 1 TAB PO (12:02)
[2022-10-24] MEDS: Aspirin E.C. 81 MG TABEC PO (12:02)
[2022-10-24] MEDS: hydroCHLOROthiazide 25 MG TAB PO (12:02)
[2022-10-24] MEDS: Ascorbic Acid 500 MG TAB PO (12:02)
[2022-10-24] MEDS: Valsartan 80 MG TAB 160 MG PO (12:03)
[2022-10-24] MEDS: Multivitamin TAB 1 TAB PO (12:03)
[2022-10-24] MEDS: Pantoprazole 40 MG TABCR PO (12:03)
[2022-10-24] MEDS: Apixaban 5 MG TAB PO ×2 (12:21→19:43)
[2022-10-24] MEDS: MORPHine 2 MG/ML SYR IVP (16:49)
[2022-10-24] MEDS: Normal Saline Flush 10 ML SYR IVP ×2 (16:50→19:40)
--- NOTE | 2022-10-24 17:57 | W.PM.PROGNOT ---
Date of Service Date of service: 10/24/22 Time of Service: 17:57 Assessment and Plan Assessment and plan (1) Epigastric pain: Status: Acute Assessment and plan: At this point, I think that the chest pain the patient came in with is of GI origin. Obtain acute abdominal series. Change protonix to BID. NPO Consider a surgical consult for an EGD. Prn zofran. (2) Hypertensive urgency: Start date: 10/22/22 Status: Resolved Assessment and plan: BP Overall better, but we have room to uptitrate lopressor. I have decreased the dose of lopressor. Continue cardizem. Continue valsartan. Continue HCTZ. (3) Atypical chest pain: Start date: 10/22/22 Status: Acute Assessment and plan: As above; Additionally, reviewed case with vascular surgery - no dissection. Continue BP control. MPI as outpatient or possibly on Wednesday. Vascular/cardiology follow up. Pain after eating - ?gallbladder colic? gastric ulcer? See above. (4) Thoracic ascending aortic aneurysm: Status: Acute Assessment and plan: As above BP control. (5) Left renal artery stenosis: Status: Acute Assessment and plan: On an ARB. Continue. Vascular surgery f/u. (6) Cholelithiasis: Status: Chronic Assessment and plan: As above. No evidence of acute cholecystitis by ultrasound, but it does sound like every once in a while the patient gets a colic. Referral to general surgery as outpatient. (7) Atrial fibrillation: Status: Chronic Assessment and plan: HR has been controlled. I have decreased her beta leopoldo dose and continued her current cardizem dose with holding parameters. On eliquis. Qualifiers: Atrial fibrillation type: longstanding persistent Qualified Code(s): I48.11 - Longstanding persistent atrial fibrillation (8) Hypomagnesemia: Start date: 10/22/22 Status: Acute Assessment and plan: Replete; recheck in am. (9) DVT prophylaxis: Status: Acute Assessment and plan: Continue eliquis (10) Discharge planning issues: Status: Acute Assessment and plan: Full code Continues to require hospitalization. Subjective Subjective Interval history since last seen: Vomited twice today, describing epigastric discomfort associated with this. At this time, both the epigastric discomfort and the nausea have resolved. She did eat, but it sounds like she limited herself to clear liquids and milk. Denies dizziness, chest pain, shortness of breath. Last BM was on . Has been passing small amounts of flatus. Exam Narrative Exam Narrative: General: Pleasant elderly female who appears tired in bed, A&Ox3, NAD HEENT: EOMI, MMM Heart: RRR, no m/r/g Lungs: CTAB Abdomen: soft, nontender, nondistended Extremities: BLE lymphedema Objective Last Vital Signs Temp 37.8 C H 10/24/22 16:51 Pulse 99 H 10/24/22 16:51 Resp 16 10/24/22 16:51 BP 135/72 10/24/22 16:51 Pulse Ox 94 10/24/22 16:51 Laboratory Results - last 24 hr 10/24/22 10/24/22 10/24/22 05:50 05:50 05:50 WBC 9.11 RBC 4.44 Hgb 13.2 Hct 40.9 MCV 92 MCH 29.7 MCHC 32.3 RDW 13.3 Plt Count 225 MPV 10.0 Immature Gran % 0.2 Neutrophils % 66.8 Lymphocytes % 21.8 Monocytes % 10.1 Eosinophils % 0.8 Basophils % 0.3 Nucleated RBC % 0.0 Absolute Neutrophils 6.08 Absolute Lymphocytes 1.99 Absolute Monocytes 0.92 H Absolute Eosinophils 0.07 Absolute Basophils 0.03 Sodium 139 Potassium 3.8 Chloride 103 Carbon Dioxide 27.5 Anion Gap 8.5 BUN 15 Creatinine 0.8 Est GFR (CKD-EPI 2020) 79.22 Glucose 118 H Calcium 8.9 Magnesium 1.6 L Total Bilirubin 0.8 Conjugated Bilirubin 0.2 AST 26 ALT 11 L Alkaline Phosphatase 67 Troponin I < 50 Total Protein 6.8 Albumin 3.4 Lipase 27 Time Spent with Patient Time Spent with Patient: 25-34 minutes Time was spent: preparing to see the patient(eg.review tests), obtaining and/or reviewing separately otained hiistory, ordering medications,tests, procedures, referring, communicating with other health critical care educator, indepentently interpreting results, counseling the patient and care coordination
[2022-10-24] MEDS: Lactated Ringers 1,000 ML 125 ML IV (18:24)
--- NOTE | 2022-10-24 19:08 | DI.VRAD_ITS ---
PROCEDURE INFORMATION: Exam: XR Abdomen Exam date and time: 10/24/2022 6:43 PM Age: 72 years old Clinical indication: Nausea and vomiting; Patient HX: Nausea/vomiting TECHNIQUE: Imaging protocol: Radiologic exam of the abdomen. Views: 2 Views. Upright and supine views. COMPARISON: CT CHEST PE ABD PELVIS W 10/22/2022 10:31 PM FINDINGS: Gastrointestinal tract: Nobstructive bowel gas pattern. Intraperitoneal space: No free air. Bones/joints: Chronic bony changes with no displaced fracture. IMPRESSION: Nobstructive bowel gas pattern. Dictated and Authenticated by: Jessica Davila MD. Ordering:KHALIF Wen MD
[2022-10-24] MEDS: Pantoprazole 40 MG VIAL IVP (19:40)
[2022-10-24] MEDS: Acetaminophen 325 MG TAB PO (19:43)
[2022-10-24] MEDS: Atorvastatin 40 MG TAB 80 MG PO (19:44)
[2022-10-24] MEDS: Citalopram 20 MG TAB PO (21:36)
[2022-10-25] VITALS (7 sets, daily range): BP systolic 135–151; BP diastolic 75–85; PULSE 77–85; RESP 16–18; TEMP 36.2–38.5; O2SAT 91–96
[2022-10-25] MEDS: dilTIAZem 60 MG TAB 90 MG PO ×4 (02:20→21:58)
[2022-10-25] MEDS: Metoprolol 25 MG TAB PO ×3 (03:59→18:51)
[2022-10-25] MEDS: Lactated Ringers 1,000 ML 125 ML IV ×2 (04:11→12:26)
[2022-10-25 06:24] LABS: Abs Immature Grans 0.04 10^3/uL (0.0-0.06); Absolute Basophil Count 0.03 10^3/uL (0.0-0.2); Absolute Eosinophil Count 0.01 10^3/uL (0.0-0.7); Absolute Lymphocyte Count 1.24 10^3/uL (1.2-3.4); Absolute Monocyte Count 1.65 10^3/uL (0.1-0.8); Absolute Neutrophil Count 10.36 10^3/uL (1.2-6.7); Basophils % 0.2; Eosinophils % 0.1; HCT 38.8 % (36.0-46.0); HGB 12.9 g/dL (11.2-15.7); Immature Grans % 0.3; Lymphocytes % 9.3; MCH 30.6 pg (27.0-33.0); MCHC 33.2 % (32.0-36.0); MCV 92 fL (80-95); MPV 10.1 fL (8.0-11.0); Monocytes % 12.4; Neutrophils % 77.7; Platelet Count 208 10^3/uL (130-400); RBC 4.22 10^6/uL (3.93-5.22); RDW 13.3 % (11.7-14.6); RDW-SD 45.4 fL; WBC 13.33 10^3/uL (4.4-10.8)
[2022-10-25 06:38] LABS: Anion Gap 7.9 mmol/L (3-11); BUN 15 mg/dL (7-18); CO2 29.1 mmol/L (21.0-32.0); CREATININE 0.8 mg/dL (0.55-1.02); Chloride 102 mmol/L (98-107); Estimated GFR 79.22 (mL/min/1.73m2); Glucose 118 mg/dL (74-106); Magnesium 1.8 mg/dL (1.8-2.4); Potassium 3.5 mmol/L (3.5-5.1); Sodium 139 mmol/L (136-145)
[2022-10-25 07:39] LABS: Diff Comment Agrees w/ Instrument; RBC Morphology Normal
[2022-10-25 08:38] LABS: Lab Add On Test DONE
[2022-10-25 08:48] LABS: C-Reactive Protein 9.24 mg/dL (0.0-0.3)
[2022-10-25] MEDS: Pantoprazole 40 MG VIAL IVP ×2 (08:56→21:56)
[2022-10-25] MEDS: Valsartan 80 MG TAB 160 MG PO (08:56)
[2022-10-25] MEDS: Ascorbic Acid 500 MG TAB PO (08:57)
[2022-10-25] MEDS: Vitamins B Comp w/C TAB 1 TAB PO (08:58)
[2022-10-25] MEDS: hydroCHLOROthiazide 25 MG TAB PO (08:58)
[2022-10-25] MEDS: Magnesium Oxide 400 MG TAB PO ×2 (08:58→21:58)
[2022-10-25] MEDS: Aspirin E.C. 81 MG TABEC PO (08:58)
[2022-10-25] MEDS: Apixaban 5 MG TAB PO ×2 (08:58→21:58)
[2022-10-25] MEDS: Multivitamin TAB 1 TAB PO (08:59)
[2022-10-25 09:09] LABS: Procalcitonin 0.2 ng/mL
[2022-10-25] MEDS: PIPERACILLIN/TAZO 3.375 GM in Normal Saline 50 ML IVPB ×2 (12:56→18:13)
[2022-10-25 13:02] LABS: Hemoglobin A1C 5.4 % (<5.7)
[2022-10-25 13:04] LABS: ALT 29 U/L (14-59); AST 39 U/L (15-37); Albumin 3.2 g/dL (3.4-5.0); Alkaline Phosphatase 76 U/L (46-116); Bilirubin, Direct 0.4 mg/dL (0.0-0.2); Bilirubin, Total 1.2 mg/dL (0.2-1.0); Lipase 17 U/L (16-77); Total Protein 6.2 g/dL (6.4-8.2)
[2022-10-25 15:37] LABS: Source Nasal/Nares
[2022-10-25 16:15] LABS: COVID-19 PCR Negative (Negative)
--- NOTE | 2022-10-25 17:43 | W.PM.PROGNOT ---
Date of Service Date of service: 10/25/22 Time of Service: 17:43 Assessment and Plan Assessment and plan (1) Epigastric pain: Status: Acute Assessment and plan: At this point, I think that the chest pain the patient came in with is of GI origin. I have started zosyn because of the fever last night, elevated CRP and a slight bump in a procalcitonin. Suspect bacterial gastroenteritis. Tolerating clears. XR abdomen yesterday w/o evidence of obstruction. Encourage bowel regimen. Continue protonix BID Prn zofran. Outpatient surgical follow up. (2) Hypertensive urgency: Start date: 10/22/22 Status: Resolved Assessment and plan: BP Overall better, but we have room to uptitrate lopressor. Continue cardizem, lopressor, valsartan, HCTZ. (3) Atypical chest pain: Start date: 10/22/22 Status: Acute Assessment and plan: As above; Additionally, reviewed case with vascular surgery - no dissection. Continue BP control. MPI as outpatient. Vascular/cardiology follow up. Pain after eating suggests a GI origin. (4) Thoracic ascending aortic aneurysm: Status: Acute Assessment and plan: As above BP control. (5) Left renal artery stenosis: Status: Acute Assessment and plan: On an ARB. Continue. Vascular surgery f/u. (6) Cholelithiasis: Status: Chronic Assessment and plan: As above. No evidence of acute cholecystitis by ultrasound, but it does sound like every once in a while the patient gets a colic. Referral to general surgery as outpatient. (7) Atrial fibrillation: Status: Chronic Assessment and plan: HR has been controlled. Continue metoprolol, carzdizem, eliquis.. Qualifiers: Atrial fibrillation type: longstanding persistent Qualified Code(s): I48.11 - Longstanding persistent atrial fibrillation (8) Hypomagnesemia: Start date: 10/22/22 Status: Resolved Assessment and plan: Recheck in am. (9) DVT prophylaxis: Status: Acute Assessment and plan: Continue eliquis (10) Discharge planning issues: Status: Acute Assessment and plan: Full code Possible discharge home tomorrow. Subjective Subjective Interval history since last seen: No more nausea today, and has been able to keep down clears. Still has some abdominal pain, especially when coughing. Febrile last night. Last BM on . Feels constipated. Passing flatus. Would like to try milk of magnesia again rather than a suppository. No dizziness, CP. Does get MACKEY. 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 Lungs: CTAB Abdomen: soft, nontender, nondistended. I am not able to illicit pain today even on deep palpation, which I was able to yesterday. Extremities: BLE lymphedema, unchanged Objective Last Vital Signs Temp 37.7 C H 10/25/22 15:22 Pulse 79 10/25/22 16:42 Resp 16 10/25/22 15:22 BP 140/80 10/25/22 15:22 Pulse Ox 96 10/25/22 15:22 Laboratory Results - last 24 hr 10/25/22 10/25/22 10/25/22 05:51 05:51 05:51 WBC 13.33 H RBC 4.22 Hgb 12.9 Hct 38.8 MCV 92 MCH 30.6 MCHC 33.2 RDW 13.3 Plt Count 208 MPV 10.1 Immature Gran % 0.3 Neutrophils % 77.7 Lymphocytes % 9.3 Monocytes % 12.4 Eosinophils % 0.1 Basophils % 0.2 Nucleated RBC % 0.0 Absolute Neutrophils 10.36 H Absolute Lymphocytes 1.24 Absolute Monocytes 1.65 H Absolute Eosinophils 0.01 Absolute Basophils 0.03 RBC Morphology Normal Sodium 139 Potassium 3.5 Chloride 102 Carbon Dioxide 29.1 Anion Gap 7.9 BUN 15 Creatinine 0.8 Est GFR (CKD-EPI 2020) 79.22 Glucose 118 H Hemoglobin A1c Calcium 9.0 Magnesium 1.8 Total Bilirubin Conjugated Bilirubin AST ALT Alkaline Phosphatase C-Reactive Protein Total Protein Albumin Lipase Procalcitonin COVID-19 Source SARS-CoV-2 (PCR) Add-On Test Request DONE 10/25/22 10/25/22 10/25/22 05:51 05:51 05:51 WBC RBC Hgb Hct MCV MCH MCHC RDW Plt Count MPV Immature Gran % Neutrophils % Lymphocytes % Monocytes % Eosinophils % Basophils % Nucleated RBC % Absolute Neutrophils Absolute Lymphocytes Absolute Monocytes Absolute Eosinophils Absolute Basophils RBC Morphology Sodium Potassium Chloride Carbon Dioxide Anion Gap BUN Creatinine Est GFR (CKD-EPI 2020) Glucose Hemoglobin A1c Calcium Magnesium Total Bilirubin 1.2 H Conjugated Bilirubin 0.4 H AST 39 H ALT 29 Alkaline Phosphatase 76 C-Reactive Protein 9.24 H Total Protein 6.2 L Albumin 3.2 L Lipase 17 Procalcitonin 0.2 COVID-19 Source SARS-CoV-2 (PCR) Add-On Test Request 10/25/22 10/25/22 10/25/22 05:51 15:05 Unknown WBC RBC Hgb Hct MCV MCH MCHC RDW Plt Count MPV Immature Gran % Neutrophils % Lymphocytes % Monocytes % Eosinophils % Basophils % Nucleated RBC % Absolute Neutrophils Absolute Lymphocytes Absolute Monocytes Absolute Eosinophils Absolute Basophils RBC Morphology Sodium Potassium Chloride Carbon Dioxide Anion Gap BUN Creatinine Est GFR (CKD-EPI 2020) Glucose Hemoglobin A1c 5.4 Calcium Magnesium Total Bilirubin Conjugated Bilirubin AST ALT Alkaline Phosphatase C-Reactive Protein Total Protein Albumin Lipase Procalcitonin COVID-19 Source Nasal/Nares SARS-CoV-2 (PCR) Negative Add-On Test Request Cancelled Time Spent with Patient Time Spent with Patient: 25-34 minutes Time was spent: preparing to see the patient(eg.review tests), obtaining and/or reviewing separately otained hiistory, ordering medications,tests, procedures, referring, communicating with other health primary care physician, indepentently interpreting results, counseling the patient and care coordination
[2022-10-25] MEDS: Atorvastatin 40 MG TAB 80 MG PO (21:57)
[2022-10-25] MEDS: Citalopram 20 MG TAB PO (21:57)
[2022-10-25] MEDS: Normal Saline Flush 10 ML SYR IVP (21:57)
[2022-10-25] MEDS: Docusate Sodium 100 MG CAP PO (22:09)
[2022-10-26] VITALS (10 sets, daily range): BP systolic 109–144; BP diastolic 69–82; PULSE 68–89; RESP 16–20; TEMP 36.9–37.4; O2SAT 92–98
[2022-10-26] MEDS: PIPERACILLIN/TAZO 3.375 GM in Normal Saline 50 ML IVPB ×4 (00:01→19:42)
[2022-10-26] MEDS: Normal Saline Flush 10 ML SYR IVP ×4 (00:03→13:07)
[2022-10-26] MEDS: dilTIAZem 60 MG TAB 90 MG PO ×4 (01:23→19:41)
[2022-10-26] MEDS: Metoprolol 25 MG TAB PO ×3 (04:17→19:43)
[2022-10-26 06:10] LABS: Abs Immature Grans 0.04 10^3/uL (0.0-0.06); Absolute Basophil Count 0.02 10^3/uL (0.0-0.2); Absolute Eosinophil Count 0.02 10^3/uL (0.0-0.7); Absolute Lymphocyte Count 1.73 10^3/uL (1.2-3.4); Absolute Neutrophil Count 8.54 10^3/uL (1.2-6.7); Basophils % 0.2; Eosinophils % 0.2; HCT 38.2 % (36.0-46.0); HGB 12.7 g/dL (11.2-15.7); Immature Grans % 0.3; Lymphocytes % 14.5; MCH 30.4 pg (27.0-33.0); MCHC 33.2 % (32.0-36.0); MCV 91 fL (80-95); MPV 10.1 fL (8.0-11.0); Monocytes % 13.2; Neutrophils % 71.6; Platelet Count 215 10^3/uL (130-400); RBC 4.18 10^6/uL (3.93-5.22); RDW 13.5 % (11.7-14.6); RDW-SD 45.8 fL; WBC 11.93 10^3/uL (4.4-10.8)
[2022-10-26 06:21] LABS: Absolute Monocyte Count 1.57 10^3/uL (0.1-0.8)
[2022-10-26 06:27] LABS: Anion Gap 7.2 mmol/L (3-11); BUN 15 mg/dL (7-18); C-Reactive Protein 18.29 mg/dL (0.0-0.3); CO2 29.8 mmol/L (21.0-32.0); CREATININE 0.9 mg/dL (0.55-1.02); Calcium 8.7 mg/dL (8.5-10.1); Chloride 99 mmol/L (98-107); Estimated GFR 68.77 (mL/min/1.73m2); Glucose 102 mg/dL (74-106); Magnesium 1.8 mg/dL (1.8-2.4); Potassium 3.3 mmol/L (3.5-5.1); Sodium 136 mmol/L (136-145)
[2022-10-26] MEDS: Aspirin E.C. 81 MG TABEC PO (07:26)
[2022-10-26] MEDS: Pantoprazole 40 MG VIAL IVP ×2 (07:26→19:43)
[2022-10-26] MEDS: Milk of Magnesia 30 ML CUP PO (07:26)
[2022-10-26] MEDS: Multivitamin TAB 1 TAB PO (07:27)
[2022-10-26] MEDS: hydroCHLOROthiazide 25 MG TAB PO (07:27)
[2022-10-26] MEDS: Ascorbic Acid 500 MG TAB PO (07:27)
[2022-10-26] MEDS: Valsartan 80 MG TAB 160 MG PO (07:27)
[2022-10-26] MEDS: Apixaban 5 MG TAB PO (07:27)
[2022-10-26] MEDS: Magnesium Oxide 400 MG TAB PO ×2 (07:27→19:40)
[2022-10-26] MEDS: Vitamins B Comp w/C TAB 1 TAB PO (07:27)
[2022-10-26 08:22] LABS: Lab Add On Test COMPLETED
[2022-10-26 08:39] LABS: ALT 30 U/L (14-59); AST 30 U/L (15-37); Albumin 2.9 g/dL (3.4-5.0); Alkaline Phosphatase 73 U/L (46-116); Bilirubin, Direct 0.5 mg/dL (0.0-0.2); Bilirubin, Total 1.2 mg/dL (0.2-1.0); Total Protein 6.4 g/dL (6.4-8.2)
[2022-10-26] MEDS: POTASSIUM CHLORIDE 20 MEQ/100 ML BAG 50 MEQ IVPB ×2 (09:52→13:06)
[2022-10-26] MEDS: Normal Saline 500 ML 80 ML IV (09:56)
--- NOTE | 2022-10-26 14:08 | PDOC.CMPRO ---
- If Service Date Differs Date of service: 10/26/22 Time of Service: 14:08 Care Management Progress Note S/O: Roberta was sitting up in her chair when CM met with her. She stated that she is feeling better today, but that over the weekend, she did not feel well. She reported that she was told she will remain overnight again and have a Hida scan tomorrow. She is agreeable to this plan. CM will continue to follow. A: Roberta is a 72 year old female admitted to [facility] on 10/22/22 for atypical chest pain, HTN, cholelithiasis. P: Anticipate Roberta will return home once medically cleared. She will be driven home via private vehicle by a friend vs RCT. She will follow up with her PCP and discharge plan of care. CM will continue to follow.
[2022-10-26 14:16] LABS: Lab Add On Test DONE
--- NOTE | 2022-10-26 18:08 | SCONE_ITS ---
Date of service: 10/26/22 Time of Service: 18:08 Assessment and Plan Assessment and plan (1) Cholelithiasis: Status: Chronic Assessment and plan: 72yo female admitted with atypical chest pain and hypertensive urgency, with history that reflects biliary colic, with significantly large gallstones. She is on Eliquis, which has been held. Pt denies significant post-prandial pain at this time. --her case was reveiwed with Anesthesia, and theey believe she is safe to proceed with operative intervention here if we wish to proceed --HIDA scan pending Pt discussed with Dr. Jeter History of Present Illness History of Present Illness Chief Complaint: chest pain, abdominal pain Narrative: This is a 72-year-old female history of atrial fibrillation for which she takes diltiazem and apixaban, who presented to the ED on 10/22, with a persistent vise- like chest pain that extended over the upper abdomen. She describes having middle abdominal pain that radiated up to her chest. The pain was associated with shortness of breath and mild nausea.? She denies fevers/chills, vomiting, dysuria. However, she is just got over a prolonged cold where she had a productive cough, fever, and nausea. On arrival to the ED, the patient was found to have hypertensive urgency with a pressure 175/128, in atrial fibrillation with a pulse in the 90s.? She was oxygenating normally and was afebrile.? Her history includes obesity, hypercholesterolemia, hypertension.? She iwas high risk for acute coronary syndrome, differential diagnosis would also include hypertensive crisis, CHF, PE .? Patient given 325 mg of aspirin.? Given her hypertension and chest discomfort that she rated 5 out of 10, she was given sublingual nitroglycerin. With the chest pain and elevated D-dimer, the patient was referred for CT scan of the chest and due to her upper abdominal discomfort abdominal imaging was obtained as well; the thoracic aorta has aneurysmal changes but no dissection.? No PE, no lung infiltrates.? There is some bronchial wall thickening.? Note of left renal artery stenosis, multiple gallstones. She states that she has been having some epigastric/RUQ/R flank discomfort for years when she has had fatty foods, but it has never prompted her to go to the ED. She is aware that she has gallstones, and has discussed it with her PMD. The patient was admitted for further management. Further evaluation clarified that the patient's discomfort was likely from GI origin, suggesting GERD dz and/biliary colic, and the plan was for outpatient surgical f/u. However, in the evening of 10/25,the pt had a fever to 101.3, and her CRP started to trend up. A surgical consult was requested. Consults Consult date: 10/26/22 Requesting physician: Bettye Jeter Review of Systems Constitutional Constitutional: Reports fever(s) and Reports snoring Eyes Eyes: Denies change in vision and Denies loss of vision ENT Ears, Nose, Mouth, and Throat: Denies dysphagia Cardiovascular Cardiovascular: Denies chest pain and Reports other (atrial fibrillation) Respiratory Respiratory: Reports snoring Gastrointestinal Gastrointestinal: Reports abdominal pain, Denies belching, Denies melena, Denies hematochezia, Denies change in bowel habits, Denies coffee ground emesis, Denies dysphagia, Denies heartburn and Reports vomiting Genitourinary Genitourinary: Denies difficulty voiding and Denies dysuria Neurologic Neurologic: Denies loss of vision and Denies paresthesias PFSH All Active Problems (Updated 10/25/22 @ 17:50 by Bettye Jeter MD) Epigastric pain (Acute) Discharge planning issues (Acute) DVT prophylaxis (Acute) Left renal artery stenosis (Acute) Thoracic ascending aortic aneurysm (Acute) Cholelithiasis (Chronic) Atypical chest pain (Acute) Localized edema (Acute) Pain, foot (Acute) Corns and callosities (Acute) Nail dystrophy (Acute) [place] cardiac risk 10-20% in next 10 years (Chronic) 2020 12.9% Hypercholesterolemia (Chronic ~06/26/21) Chronic anticoagulation (Chronic) Depressive disorder (Chronic 09/17/11) W/LOBECTOMY Pre-diabetes (Chronic ~2016) 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) OS 20/40 05/31/21 TSH elevation (Acute 06/22/17) n= 3.74, her result 3.81 Snoring (Acute 02/02/13) Jayce ordered sleep consult 01/2013 Morbid obesity (Acute 02/02/13) 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 Essential hypertension (Chronic 01/05/12) goal BP 140/90 Atrial fibrillation (Chronic 05/19/12) Onset 2011, Holter 12/2011 AFib throughout, ECHO 12/2008 LVEF 65%+LVH Permanent, clinically silent Managed with rate control [employer] Jayce Medical History Advanced directive placed in chart this admission (02/15/18) Afib Back pain Benign paroxysmal positional vertigo (09/17/11) Depression Diverticulosis Diverticulosis of colon (02/15/18) Fatty infiltration of liver (02/15/18) Gallstones Hyperlipidemia Hypertension Impaired ambulation Memory loss Morbid obesity Pneumonia of left lower lobe due to infectious organism (12/09/16) Right shoulder pain Seizure disorder (09/17/11) Snoring Vitreomacular traction syndrome of both eyes Surgical History Brain Surgery, 05/11/1993 Neurosurgery [facility] [place] 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, 2002 Excessive bleeding Family History Mother Diabetes Essential hypertension Heart disease Stroke Father Heart disease Stroke Social History Smoking/Tobacco Use Status: Never Smoking risk assessment performed?: Yes Alcohol Intake: never Drug use: Never Substance use type: does not use Household members: none Housing: other Communication Needs: Corrective Lenses current occupation: works at [employer] Pets and animals: Yes Pets and animals: cat(s) What is your relationship status?: How often do you talk on the phone with friends or family?: once per week Panel score (0-1 are the most socially isolated patients): 0 What type of physical activity do you participate in: other Details: physically active at work Seatbelt use: always Drive intox 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 Working smoke detector in home: Yes Fire extinguisher in home: Yes Carbon monox detector in home: Yes Do you feel safe at home: Yes Do you feel safe in your relationship?: Yes Exam Const General: cooperative, healthy appearing, comfortable and no acute distress Nutritional Appearance: obese Orientation: alert, awake and oriented x3 Neck Neck: normal visual inspection, trachea midline and supple Resp Effort & Inspection: normal respiratory effort, no grunting, not labored and no nasal flaring Cardio Rate: regular rate Rhythm: abnormal rhythm GI Inspection: large pannus and obesity Palpation: soft, not firm, guarding, not rigid and tender in the RUQ; Lawson's sign negative Auscultation: normal bowel sounds Back/Spine/Pelvis Back: other (+ Right flank tenderness) Psych Mood: congruent mood Affect: normal affect Thought Process: normal Thought Content: normal Insight: insight good Judgment: judgment good Results Last Vital Signs Temp 98.6 F 10/26/22 15:36 Pulse 85 10/26/22 15:36 Resp 20 10/26/22 15:36 BP 128/79 10/26/22 15:36 Pulse Ox 95 10/26/22 15:36 Labs 10/26/22 05:45 10/26/22 05:45 Labs: Laboratory Results - last 24 hr 10/25/22 10/26/22 10/26/22 05:51 05:45 05:45 WBC 11.93 H RBC 4.18 Hgb 12.7 Hct 38.2 MCV 91 MCH 30.4 MCHC 33.2 RDW 13.5 Plt Count 215 MPV 10.1 Immature Gran % 0.3 Neutrophils % 71.6 Lymphocytes % 14.5 Monocytes % 13.2 Eosinophils % 0.2 Basophils % 0.2 Nucleated RBC % 0.0 Absolute Neutrophils 8.54 H Absolute Lymphocytes 1.73 Absolute Monocytes 1.57 H Absolute Eosinophils 0.02 Absolute Basophils 0.02 Sodium 136 Potassium 3.3 L Chloride 99 Carbon Dioxide 29.8 Anion Gap 7.2 BUN 15 Creatinine 0.9 Est GFR (CKD-EPI 2020) 68.77 Glucose 102 Calcium 8.7 Magnesium 1.8 Total Bilirubin Conjugated Bilirubin AST ALT Alkaline Phosphatase C-Reactive Protein 18.29 H Total Protein Albumin Add-On Test Request DONE 10/26/22 10/26/22 05:45 08:20 WBC RBC Hgb Hct MCV MCH MCHC RDW Plt Count MPV Immature Gran % Neutrophils % Lymphocytes % Monocytes % Eosinophils % Basophils % Nucleated RBC % Absolute Neutrophils Absolute Lymphocytes Absolute Monocytes Absolute Eosinophils Absolute Basophils Sodium Potassium Chloride Carbon Dioxide Anion Gap BUN Creatinine Est GFR (CKD-EPI 2020) Glucose Calcium Magnesium Total Bilirubin 1.2 H Conjugated Bilirubin 0.5 H AST 30 ALT 30 Alkaline Phosphatase 73 C-Reactive Protein Total Protein 6.4 Albumin 2.9 L Add-On Test Request COMPLETED Imaging Additional studies: ABD U/S: FINDINGS: PANCREAS: Normal where visualized. LIVER: Normal. Hepatopedal flow in the Portal Vein. The liver measures in 20.4 cm length. GALLBLADDER:Numerous stones are seen within the gallbladder.? There is a 3.1 cm stone in the gallbladder neck.? The gallbladder wall measures 5.9 mm.? No pericholecystic fluid identified. BILIARY SYSTEM: Common bile duct measures < 7 mm. No intrahepatic biliary ductal dilation. LAWSON'S SIGN: Negative. RIGHT KIDNEY: Kidney is normal in size.? No evidence of renal calculi. No evidence of hydronephrosis. No renal mass or cyst identified. ASCITES: None seen. IMPRESSION: 1. Cholelithiasis.? No biliary ductal dilatation.? Negative Lawson sign. 2. Hepatomegaly.? Imaging Studies: CT C/A/P (10/22/22): FINDINGS: CHEST: Tracheobronchial tree: Patent where visualized. Pulmonary parenchyma: No consolidation or dominant measurable mass. No architectural distortion. Pulmonary Arteries: The segmental and subsegmental pulmonary arteries are not well opacified due to timing and volume of the bolus. No central pulmonary embolus is identified. Mediastinum and Maty: No dominant adenopathy or fluid collection. The esophagus is unremarkable. Visualized thyroid gland: There are nodule seen in the right lobe of the thyroid gland. The largest measures 1.5 cm. Nonemergent thyroid ultrasound is recommended for further evaluation. Pleura: No effusion or pneumothorax. Heart: Cardiomegaly. Mild coronary artery calcification. No pericardial effusion. Aorta: The ascending thoracic aorta measures 4.3 x 4.7 cm. Atherosclerosis. Thoracic aorta is not well opacified for evaluation of aortic dissection. Bones: Within normal limits for the patient's age. Soft tissues: Unremarkable.? ABDOMEN: Liver: Normal density. No measurable mass. Portal, Superior Mesenteric, and Splenic Veins: Unremarkable.? Gallbladder and Biliary Tract: Cholelithiasis. No biliary ductal dilatation. Pancreas: Normal density, no abnormal calcifications or inflammatory process. Spleen: Normal. Adrenals: No masses seen. Kidneys: Normal size, contour and axis. No radiodense stones or obstructive uropathy. There are stable bilateral renal cysts. Parapelvic cysts are seen in the left kidney. There does appear to be a delayed left nephrogram. No ureterolithiasis or hydronephrosis is seen on the left. Abdominal Aorta: Abdominal portion non-dilated. Atherosclerosis. Bowel: No obstruction or bowel wall thickening. There is diverticulosis of the colon, but no evidence of acute diverticulitis. No evidence of appendicitis. Peritoneal Cavity: No ascites, collection or mesenteric inflammatory response. No free air. Lymph Nodes: Within normal limits. Bones: Within normal limits for the patient's age.? Soft Tissues: There is a small fat containing midline anterior abdominal wall hernia. PELVIS: Bladder: Symmetric distention, no gross wall thickening. Reproductive Organs: Status post hysterectomy. Lymph Nodes: Within normal limits. Bones: Within normal limits. IMPRESSION: 1. No central pulmonary embolism. Please see the above discussion for complete details. 2. Ascending thoracic aortic aneurysm. It measures 4.7 x 4.3 cm. 3. No acute pulmonary infiltrates. 4. Mild cardiomegaly. 5. Cholelithiasis. No biliary ductal dilatation. 6. Bilateral renal cysts. 7. Mild delayed enhancement of the left kidney. No obvious stone or obstruction. There is marked stenosis seen of the left renal artery.
[2022-10-26] MEDS: Atorvastatin 40 MG TAB 80 MG PO (19:42)
--- NOTE | 2022-10-26 20:40 | W.PM.PROGNOT ---
Date of Service Date of service: 10/26/22 Time of Service: 20:40 Assessment and Plan Assessment and plan (1) Epigastric pain: Status: Acute Assessment and plan: At this point, I think that the chest pain the patient came in with is of GI origin. Consulted general surgery and discussed case with Dr Dorman who agrees that sx could be due to a biliary colic. The fact that CRP went up is concerning. For HIDA scan tomorrow. HOlding eliquis in case the patient does require a surgery. May or may not get upper endoscopy on this admission. Continue protonix BID Prn zofran. (2) Cholelithiasis: Status: Chronic Assessment and plan: As above. (3) Hypertensive urgency: Start date: 10/22/22 Status: Resolved Assessment and plan: BP Overall better, but we have room to uptitrate lopressor. Continue cardizem, lopressor, valsartan, HCTZ. (4) Atypical chest pain: Start date: 10/22/22 Status: Acute Assessment and plan: As above; Additionally, reviewed case with vascular surgery - no dissection. Continue BP control. MPI as outpatient. Vascular/cardiology follow up. Pain after eating suggests a GI origin. (5) Thoracic ascending aortic aneurysm: Status: Acute Assessment and plan: As above BP control. (6) Left renal artery stenosis: Status: Acute Assessment and plan: On an ARB. Continue. Vascular surgery f/u. (7) Atrial fibrillation: Status: Chronic Assessment and plan: HR has been controlled. Continue metoprolol, carzdizem. Hold eliquis. Qualifiers: Atrial fibrillation type: longstanding persistent Qualified Code(s): I48.11 - Longstanding persistent atrial fibrillation (8) Hypomagnesemia: Start date: 10/22/22 Status: Resolved Assessment and plan: Recheck in am. (9) DVT prophylaxis: Status: Acute Assessment and plan: Hold eliquis. Start SCDs. (10) Discharge planning issues: Status: Acute Assessment and plan: Full code Continues to require hospitalization. Subjective Subjective Interval history since last seen: Ms Hunter had another episode of RUQ pain today. She did have a BM. Denies dizziness, chest pain, shortness of breath unless she is exerting herself, denied nausea. Tolerating clears. Exam Narrative Exam Narrative: General: Pleasant elderly female who is sitting up in a chair, in a good mood, A&Ox3, looks comfortable HEENT: EOMI, MMM Heart: Irregularly irregular rhythm, +SRINIVASAN. Lungs: CTAB Abdomen: soft, nontender, nondistended. I am not able to illicit pain today even on deep palpation, which I was able to yesterday. Extremities: BLE lymphedema, unchanged Objective Last Vital Signs Temp 37.3 C 10/26/22 19:38 Pulse 80 10/26/22 19:38 Resp 18 10/26/22 19:38 BP 140/69 10/26/22 19:38 Pulse Ox 96 10/26/22 19:38 Laboratory Results - last 24 hr 10/25/22 10/26/22 10/26/22 05:51 05:45 05:45 WBC 11.93 H RBC 4.18 Hgb 12.7 Hct 38.2 MCV 91 MCH 30.4 MCHC 33.2 RDW 13.5 Plt Count 215 MPV 10.1 Immature Gran % 0.3 Neutrophils % 71.6 Lymphocytes % 14.5 Monocytes % 13.2 Eosinophils % 0.2 Basophils % 0.2 Nucleated RBC % 0.0 Absolute Neutrophils 8.54 H Absolute Lymphocytes 1.73 Absolute Monocytes 1.57 H Absolute Eosinophils 0.02 Absolute Basophils 0.02 Sodium 136 Potassium 3.3 L Chloride 99 Carbon Dioxide 29.8 Anion Gap 7.2 BUN 15 Creatinine 0.9 Est GFR (CKD-EPI 2020) 68.77 Glucose 102 Calcium 8.7 Magnesium 1.8 Total Bilirubin Conjugated Bilirubin AST ALT Alkaline Phosphatase C-Reactive Protein 18.29 H Total Protein Albumin Add-On Test Request DONE 10/26/22 10/26/22 05:45 08:20 WBC RBC Hgb Hct MCV MCH MCHC RDW Plt Count MPV Immature Gran % Neutrophils % Lymphocytes % Monocytes % Eosinophils % Basophils % Nucleated RBC % Absolute Neutrophils Absolute Lymphocytes Absolute Monocytes Absolute Eosinophils Absolute Basophils Sodium Potassium Chloride Carbon Dioxide Anion Gap BUN Creatinine Est GFR (CKD-EPI 2020) Glucose Calcium Magnesium Total Bilirubin 1.2 H Conjugated Bilirubin 0.5 H AST 30 ALT 30 Alkaline Phosphatase 73 C-Reactive Protein Total Protein 6.4 Albumin 2.9 L Add-On Test Request COMPLETED Time Spent with Patient Time Spent with Patient: 25-34 minutes Time was spent: preparing to see the patient(eg.review tests), obtaining and/or reviewing separately otained hiistory, ordering medications,tests, procedures, referring, communicating with other health transitional care liaison, indepentently interpreting results, counseling the patient and care coordination
[2022-10-26] MEDS: Citalopram 20 MG TAB PO (21:57)
[2022-10-27] VITALS (11 sets, daily range): BP systolic 107–165; BP diastolic 61–87; PULSE 67–99; RESP 16–22; TEMP 36.5–37.7; O2SAT 90–99
--- NOTE | 2022-10-27 | DI.NM_ITS ---
Exam(s) NM HEPATOBILIARY SCAN GRP EXAM: NM HEPATOBILIARY SCAN GRP CLINICAL HISTORY: ?cholecystitis. TECHNIQUE: Injected dose: 5 mCi Tc-99 mebrofenin Sequential scintiphotos obtained at 4 minute intervals COMPARISON: US US ABDOMEN LIMITED from 10/23/2022 FINDINGS: There is normal uptake and excretion of radiopharmaceutical by the liver and activity is seen quickly in the CBD. There is, however, nonvisualization of the gallbladder out to 90 minutes. 3 hour delay images also reveal no gallbladder lumen radiopharmaceutical activity. IMPRESSION: There is obstruction of the cystic duct consistent with acute cholecystitis. If clinically indicated follow-up ultrasound can be performed to compared to the prior ultrasound of 4 days ago.
[2022-10-27] MEDS: Normal Saline Flush 10 ML SYR IVP ×2 (03:12→12:53)
[2022-10-27] MEDS: Metoprolol 25 MG TAB PO ×3 (03:12→20:26)
[2022-10-27] MEDS: dilTIAZem 60 MG TAB 90 MG PO ×4 (03:12→23:35)
[2022-10-27] MEDS: PIPERACILLIN/TAZO 3.375 GM in Normal Saline 50 ML IVPB ×4 (03:13→23:33)
[2022-10-27 07:02] LABS: Abs Immature Grans 0.03 10^3/uL (0.0-0.06); Absolute Basophil Count 0.04 10^3/uL (0.0-0.2); Absolute Eosinophil Count 0.09 10^3/uL (0.0-0.7); Absolute Lymphocyte Count 1.84 10^3/uL (1.2-3.4); Absolute Monocyte Count 1.09 10^3/uL (0.1-0.8); Absolute Neutrophil Count 7.03 10^3/uL (1.2-6.7); Basophils % 0.4; Eosinophils % 0.9; HGB 12.9 g/dL (11.2-15.7); Immature Grans % 0.3; Lymphocytes % 18.2; MCH 29.8 pg (27.0-33.0); MCHC 32.3 % (32.0-36.0); MCV 92 fL (80-95); MPV 9.9 fL (8.0-11.0); Monocytes % 10.8; Neutrophils % 69.4; Platelet Count 257 10^3/uL (130-400); RBC 4.33 10^6/uL (3.93-5.22); RDW 13.3 % (11.7-14.6); RDW-SD 46.2 fL; WBC 10.12 10^3/uL (4.4-10.8)
[2022-10-27 07:13] LABS: BUN 14 mg/dL (7-18); C-Reactive Protein 17.06 mg/dL (0.0-0.3); Calcium 8.9 mg/dL (8.5-10.1); Chloride 101 mmol/L (98-107); Estimated GFR 60.61 (mL/min/1.73m2); Glucose 118 mg/dL (74-106); Magnesium 1.9 mg/dL (1.8-2.4); Potassium 3.5 mmol/L (3.5-5.1); Sodium 138 mmol/L (136-145)
[2022-10-27] MEDS: Valsartan 80 MG TAB 160 MG PO (12:34)
[2022-10-27] MEDS: Multivitamin TAB 1 TAB PO (12:35)
[2022-10-27] MEDS: Ascorbic Acid 500 MG TAB PO (12:35)
[2022-10-27] MEDS: Magnesium Oxide 400 MG TAB PO ×2 (12:35→20:25)
[2022-10-27] MEDS: Aspirin E.C. 81 MG TABEC PO (12:35)
[2022-10-27] MEDS: Vitamins B Comp w/C TAB 1 TAB PO (12:35)
[2022-10-27] MEDS: hydroCHLOROthiazide 25 MG TAB PO (12:36)
[2022-10-27] MEDS: Pantoprazole 40 MG VIAL IVP ×2 (12:53→20:26)
--- NOTE | 2022-10-27 14:09 | PDOC.CMPRO ---
- If Service Date Differs Date of service: 10/27/22 Time of Service: 14:09 Care Management Progress Note S/O: Roberta was sitting up in her chair when CM met with her. She stated that she is feeling ok today, and was able to walk around the hilliard, which she was happy about. She stated that she was able to eat lunch today also. Per report, she will likely have surgery tomorrow. Roberta stated that she had a hida scan today, and has not yet heard the results. CM will continue to follow. A: Roberta is a 72 year old female admitted to [facility] on 10/22/22 for atypical chest pain, HTN, cholelithiasis. P: Anticipate Roberta will return home once medically cleared. She will be driven home via private vehicle by a friend vs RCT. She will follow up with her PCP and discharge plan of care. CM will continue to follow.
--- NOTE | 2022-10-27 15:08 | PGE_ITS ---
Date of Service Date of service: 10/27/22 Time of Service: 10:30 Assessment and Plan Assessment and plan (1) Cholelithiasis: Status: Chronic Assessment and plan: 72yo female admitted with atypical chest pain and hypertensive urgency, with history that reflects biliary colic, with significantly large gallstones. She is on Eliquis, which has been held. Pt denies significant post-prandial pain at this time. --her case was reveiwed with Anesthesia, and they believe she is safe to proceed with operative intervention here if we wish to proceed --HIDA scan underway, results pending Pt discussed with Dr. Jeter Subjective Subjective Interval history since last seen: Pt feels well. Denies pain at this time. Denies nausea. NPO presently for HIDA scan. Denies reflux symptoms though slept mostly in chair. VOiding well. Exam Const General: cooperative, healthy appearing, comfortable and no acute distress Nutritional Appearance: obese Orientation: alert, awake and oriented x3 Neck Neck: normal visual inspection, trachea midline and supple Resp Effort & Inspection: normal respiratory effort, no grunting, not labored and no nasal flaring Cardio Rate: regular rate Rhythm: abnormal rhythm GI Inspection: large pannus and obesity Palpation: soft, not firm, guarding, not rigid and tender in the RUQ; Lawson's sign negative Auscultation: normal bowel sounds Back/Spine/Pelvis Back: other (+ Right flank tenderness) Psych Mood: congruent mood Affect: normal affect Thought Process: normal Thought Content: normal Insight: insight good Judgment: judgment good Objective Last Vital Signs Temp 99.0 F 10/27/22 14:53 Pulse 67 10/27/22 14:53 Resp 17 10/27/22 14:53 BP 107/61 10/27/22 14:53 Pulse Ox 98 10/27/22 14:53 Laboratory Results - last 24 hr 10/27/22 10/27/22 06:45 06:45 WBC 10.12 RBC 4.33 Hgb 12.9 Hct 40.0 MCV 92 MCH 29.8 MCHC 32.3 RDW 13.3 Plt Count 257 MPV 9.9 Immature Gran % 0.3 Neutrophils % 69.4 Lymphocytes % 18.2 Monocytes % 10.8 Eosinophils % 0.9 Basophils % 0.4 Nucleated RBC % 0.0 Absolute Neutrophils 7.03 H Absolute Lymphocytes 1.84 Absolute Monocytes 1.09 H Absolute Eosinophils 0.09 Absolute Basophils 0.04 Sodium 138 Potassium 3.5 Chloride 101 Carbon Dioxide 30.0 Anion Gap 7.0 BUN 14 Creatinine 1.0 Est GFR (CKD-EPI 2020) 60.61 Glucose 118 H Calcium 8.9 Magnesium 1.9 C-Reactive Protein 17.06 H Time Spent with Patient Time Spent with Patient: <25 minutes Time was spent: preparing to see the patient(eg.review tests), obtaining and/or reviewing separately otained hiistory, referring, communicating with other health critical care educator, indepentently interpreting results and counseling the patient
--- NOTE | 2022-10-27 15:59 | CHAPLAIN ---
Roberta was sitting up in the chair when I visited this afternoon. We remembered each other from a previous admission. She said she is tired and looking to nap this afternoon so I didn't stay long.
[2022-10-27] MEDS: Citalopram 20 MG TAB PO (20:26)
[2022-10-27] MEDS: Atorvastatin 40 MG TAB 80 MG PO (20:26)
--- NOTE | 2022-10-27 20:38 | W.PM.PROGNOT ---
Date of Service Date of service: 10/27/22 Time of Service: 20:38 Assessment and Plan Assessment and plan (1) Acute cholecystitis: Status: Acute Assessment and plan: Continue zosyn. NPO after midnight for a likely cholecystectomy tomorrow. Eliquis on hold. (2) Epigastric pain: Status: Acute Assessment and plan: At this point, I think that the chest pain the patient came in with is of GI origin. As above Also, consider an upper endoscopy. (3) Cholelithiasis: Status: Chronic Assessment and plan: As above. (4) Hypertensive urgency: Start date: 10/22/22 Status: Resolved Assessment and plan: BP Overall better, but we have room to uptitrate lopressor. Continue cardizem, lopressor, valsartan, HCTZ. (5) Atypical chest pain: Start date: 10/22/22 Status: Acute Assessment and plan: As above; Additionally, reviewed case with vascular surgery - no dissection. Continue BP control. MPI as outpatient. Vascular/cardiology follow up. Pain after eating suggests a GI origin. (6) Thoracic ascending aortic aneurysm: Status: Acute Assessment and plan: As above BP control. (7) Left renal artery stenosis: Status: Acute Assessment and plan: On an ARB. Continue. Vascular surgery f/u. (8) Atrial fibrillation: Status: Chronic Assessment and plan: HR has been controlled. Continue metoprolol, carzdizem. Hold eliquis. Qualifiers: Atrial fibrillation type: longstanding persistent Qualified Code(s): I48.11 - Longstanding persistent atrial fibrillation (9) Hypomagnesemia: Start date: 10/22/22 Status: Resolved Assessment and plan: Recheck in am. (10) DVT prophylaxis: Status: Acute Assessment and plan: Hold eliquis. SCDs. (11) Discharge planning issues: Status: Acute Assessment and plan: Full code Continues to require hospitalization. Subjective Subjective Interval history since last seen: Ms Hunter reports pain in her left back today, but not abdominal pain. She has been tolerating a diet. Denies dizziness, has a little bit of a headache, thinks it's because of caffein withdrawal, denies n/v. Had a positive HIDA scan and is possibly going to surgery tomorrow. Exam Narrative Exam Narrative: General: Pleasant elderly female who is sitting up in a chair, A&Ox3, looks comfortable HEENT: EOMI, MMM Heart: Irregularly irregular rhythm, +SRINIVASAN. Lungs: CTAB Abdomen: soft, nontender, nondistended. I am not able to illicit pain today even on deep palpation, which I was able to yesterday. Extremities: BLE lymphedema, unchanged Objective Last Vital Signs Temp 37.7 C H 10/27/22 19:15 Pulse 95 H 10/27/22 19:15 Resp 18 10/27/22 19:15 BP 137/87 10/27/22 19:15 Pulse Ox 97 10/27/22 19:15 Laboratory Results - last 24 hr 10/27/22 10/27/22 06:45 06:45 WBC 10.12 RBC 4.33 Hgb 12.9 Hct 40.0 MCV 92 MCH 29.8 MCHC 32.3 RDW 13.3 Plt Count 257 MPV 9.9 Immature Gran % 0.3 Neutrophils % 69.4 Lymphocytes % 18.2 Monocytes % 10.8 Eosinophils % 0.9 Basophils % 0.4 Nucleated RBC % 0.0 Absolute Neutrophils 7.03 H Absolute Lymphocytes 1.84 Absolute Monocytes 1.09 H Absolute Eosinophils 0.09 Absolute Basophils 0.04 Sodium 138 Potassium 3.5 Chloride 101 Carbon Dioxide 30.0 Anion Gap 7.0 BUN 14 Creatinine 1.0 Est GFR (CKD-EPI 2020) 60.61 Glucose 118 H Calcium 8.9 Magnesium 1.9 C-Reactive Protein 17.06 H Objective Narrative Objective Narrative: HIDA scan: There is obstruction of the cystic duct consistent with acute cholecystitis. Time Spent with Patient Time Spent with Patient: 25-34 minutes Time was spent: preparing to see the patient(eg.review tests), obtaining and/or reviewing separately otained hiistory, ordering medications,tests, procedures, referring, communicating with other health progressive care manager, indepentently interpreting results, counseling the patient and care coordination
[2022-10-28] VITALS (13 sets, daily range): BP systolic 133–171; BP diastolic 71–100; PULSE 81–107; RESP 17–26; TEMP 36–36.6; O2SAT 92–99; BMI 44.1
[2022-10-28] MEDS: Metoprolol 25 MG TAB PO ×2 (05:07→19:52)
[2022-10-28] MEDS: PIPERACILLIN/TAZO 3.375 GM in Normal Saline 50 ML IVPB ×5 (05:07→23:31)
[2022-10-28] MEDS: dilTIAZem 60 MG TAB 90 MG PO ×3 (05:07→23:30)
[2022-10-28 07:27] LABS: Abs Immature Grans 0.03 10^3/uL (0.0-0.06); Absolute Basophil Count 0.04 10^3/uL (0.0-0.2); Absolute Eosinophil Count 0.16 10^3/uL (0.0-0.7); Absolute Lymphocyte Count 1.69 10^3/uL (1.2-3.4); Absolute Monocyte Count 0.97 10^3/uL (0.1-0.8); Absolute Neutrophil Count 4.59 10^3/uL (1.2-6.7); Basophils % 0.5; Eosinophils % 2.1; HCT 37.5 % (36.0-46.0); HGB 12.4 g/dL (11.2-15.7); Immature Grans % 0.4; Lymphocytes % 22.6; MCHC 33.1 % (32.0-36.0); MCV 91 fL (80-95); Neutrophils % 61.4; Platelet Count 237 10^3/uL (130-400); RBC 4.13 10^6/uL (3.93-5.22); RDW 13.2 % (11.7-14.6); RDW-SD 43.7 fL; WBC 7.48 10^3/uL (4.4-10.8)
[2022-10-28 08:08] LABS: Anion Gap 10.4 mmol/L (3-11); BUN 14 mg/dL (7-18); CO2 27.6 mmol/L (21.0-32.0); CREATININE 0.8 mg/dL (0.55-1.02); Chloride 102 mmol/L (98-107); Estimated GFR 79.22 (mL/min/1.73m2); Glucose 93 mg/dL (74-106); Magnesium 1.8 mg/dL (1.8-2.4); Potassium 3.3 mmol/L (3.5-5.1); Sodium 140 mmol/L (136-145)
[2022-10-28 08:22] LABS: C-Reactive Protein 11.38 mg/dL (0.0-0.3)
[2022-10-28] MEDS: Multivitamin TAB 1 TAB PO (08:41)
[2022-10-28] MEDS: Valsartan 80 MG TAB 160 MG PO (08:41)
[2022-10-28] MEDS: Vitamins B Comp w/C TAB 1 TAB PO (08:41)
[2022-10-28] MEDS: hydroCHLOROthiazide 25 MG TAB PO (08:41)
[2022-10-28] MEDS: Pantoprazole 40 MG VIAL IVP ×2 (08:41→19:50)
[2022-10-28] MEDS: Aspirin E.C. 81 MG TABEC PO (08:41)
[2022-10-28] MEDS: Ascorbic Acid 500 MG TAB PO (08:42)
[2022-10-28] MEDS: Magnesium Oxide 400 MG TAB PO ×2 (08:42→19:52)
--- NOTE | 2022-10-28 09:49 | W.ANESPRE ---
General Info Date of Service Date Performed: 10/28/22 Height: 5 ft 7 in Weight: 127.822 kg Body Mass Index (BMI): 44.1 Surgical Procedure: Operation Date: 10/28/22 13:10 Proposed Procedure Side Surgeon p Cholecystectomy Laparoscopic Errol Hinds MD Meds Allergies and Home Medications Allergies Allergy/AdvReac Type Severity Reaction Status Date / Time phenobarbital Allergy Intermediate rash Verified 10/22/22 21:37 Home Medication Medication Instructions Recorded multivitamin (Daily Multi-Vitamin 1 ea PO DAILY 01/03/13 tablet) ascorbate calcium (vitamin C) 500 500 mg PO DAILY 06/24/22 mg tablet citalopram 20 mg tablet 20 mg PO QHS #90 tabs 09/16/22 valsartan 160 1 tab PO DAILY HTN #90 tabs 09/16/22 mg-hydrochlorothiazide 25 mg tablet apixaban 5 mg tablet 5 mg PO BID blood thinner #180 tabs 09/21/22 diltiazem HCl 360 mg 360 mg PO DAILY #90 caps 09/24/22 capsule,extended release 24 hr vitamin B complex (Complex B-100 1 tab PO DAILY 10/01/22 tablet,extended release) Current Visit Medications: Current Medications Generic Name Dose Route Start Last Admin Trade Name Freq PRN Reason Stop Dose Admin Acetaminophen 0 mg 10/22/22 23:48 10/24/22 19:43 Acetaminophen 325 Mg Tab PO 650 mg Q4H PRN PRN Administration Al Hydrox/Mg Hydrox/Simethicone 30 ml 10/22/22 23:48 Mylanta Suspension 30 Ml Cup PO Q2H PRN PRN Apixaban 5 mg 10/23/22 08:30 10/26/22 07:27 Apixaban 5 Mg Tab PO 5 mg BID JEFFREY Administration Ascorbic Acid 500 mg 10/23/22 08:30 10/28/22 08:42 Ascorbic Acid 500 Mg Tab PO 500 mg DAILY JEFFREY Administration Aspirin 81 mg 10/24/22 08:30 10/28/22 08:41 Aspirin E.C. 81 Mg Tabec PO 81 mg DAILY JEFFREY Administration Atorvastatin Calcium 80 mg 10/23/22 20:00 10/27/22 20:26 Atorvastatin 40 Mg Tab PO 80 mg QPM JEFFREY Administration Bisacodyl 10 mg 10/26/22 11:23 Bisacodyl 10 Mg Supp [place] DAILY PRN PRN Citalopram Hydrobromide 20 mg 10/22/22 23:45 10/27/22 20:26 Citalopram 20 Mg Tab PO 20 mg HS JEFFREY Administration Diltiazem HCl 90 mg 10/27/22 18:00 10/28/22 05:07 Diltiazem 60 Mg Tab PO 90 mg Q6H JEFFREY Administration Dimethicone/Zinc Oxide 0 gm 10/22/22 23:48 [place] Protect Cream 142 Gm Tube TP PRN PRN Docusate Sodium 100 mg 10/22/22 23:48 10/25/22 22:09 Docusate Sodium 100 Mg Cap PO 100 mg TID PRN PRN Administration Hydrochlorothiazide 25 mg 10/23/22 08:30 10/28/22 08:41 Hydrochlorothiazide 25 Mg Tab PO 25 mg QAM JEFFREY Administration Sodium Chloride 500 mls @ 0 mls/hr 10/22/22 21:21 10/26/22 09:56 Saline 500ml Bag IV 80 mls/hr PRN PRN Administration As Directed Piperacillin Sod/Tazobactam 50 mls @ 100 mls/hr 10/27/22 18:00 10/28/22 07:23 Sod 3.375 gm/ Sodium Chloride IVPB Infused Q6H [facility] Infusion Protocol IV Miscellaneous Supplies 1 each 10/22/22 21:30 Iv Access IV DIRECTED [facility] Magnesium Hydroxide 30 ml 10/22/22 23:48 10/26/22 07:26 Milk Of Magnesia 30 Ml Cup PO 30 ml DAILY PRN PRN Administration Magnesium Oxide 400 mg 10/24/22 08:30 10/28/22 08:42 Magnesium Oxide 400 Mg Tab PO 400 mg BID JEFFREY Administration Metoprolol Tartrate 25 mg 10/27/22 20:00 10/28/22 05:07 Metoprolol 25 Mg Tab PO 25 mg Q8H [facility] Administration Morphine Sulfate 2 mg 10/24/22 11:16 10/24/22 16:49 Morphine 2 Mg/Ml Syr IVP 2 mg Q2H PRN PRN Administration Multivitamins 1 tab 10/23/22 08:30 10/28/22 08:41 Multivitamin Tab PO 1 tab DAILY JEFFREY Administration Ondansetron HCl 4 mg 10/24/22 08:51 10/24/22 16:49 Ondansetron 4 Mg/2 Ml Vial IVP 4 mg Q6H PRN PRN Administration Pantoprazole Sodium 40 mg 10/24/22 20:00 10/28/22 08:41 Pantoprazole 40 Mg Vial IVP 40 mg BID JEFFREY Administration Polyethylene Glycol 17 gm 10/22/22 23:48 Polyethylene Glycol 3350 17 Gm Packet PO DAILY PRN PRN Constipation Sodium Chloride 0 ml 10/22/22 21:21 10/27/22 12:53 Normal Saline Flush 10 Ml Syr IVP 20 ml PRN PRN Administration Valsartan 160 mg 10/23/22 08:30 10/28/22 08:41 Valsartan 80 Mg Tab PO 160 mg DAILY JEFFREY Administration Vitamin B Complex/Vitamin C 1 tab 10/23/22 08:30 10/28/22 08:41 Vitamins B Comp W/C Tab PO 1 tab DAILY JEFFREY Administration PFSH Active Problems Active Problems: Problem Status Onset Code Acute cholecystitis K81.0 Epigastric pain R10.13 Discharge planning issues Z02.9 DVT prophylaxis Z29.9 Left renal artery stenosis I70.1 Thoracic ascending aortic aneurysm I71.21 Hypomagnesemia E83.42 Cholelithiasis K80.20 Atypical chest pain R07.89 Hypertensive urgency I16.0 Localized edema R60.0 Pain, foot M79.673 Corns and callosities L84 Nail dystrophy L60.3 [place] cardiac risk 10-20% in next 10 years Z91.89 Hypercholesterolemia ~06/26/21 E78.00 Chronic anticoagulation Z79.01 Depressive disorder 09/17/11 F32.9 Pre-diabetes ~2016 R73.03 Vitreomacular traction syndrome of both eyes 10/13/17 H43.823 TSH elevation 06/22/17 R79.89 Snoring 02/02/13 R06.83 Morbid obesity 02/02/13 E66.01 Memory loss 09/17/11 R41.3 Essential hypertension 09/17/11 I10 Atrial fibrillation 05/19/12 I48.91 Medical History Medical History Advanced directive placed in chart this admission (02/15/18) Afib Back pain Benign paroxysmal positional vertigo (09/17/11) Depression Diverticulosis Diverticulosis of colon (02/15/18) Fatty infiltration of liver (02/15/18) Gallstones Hyperlipidemia Hypertension Impaired ambulation Memory loss Morbid obesity Pneumonia of left lower lobe due to infectious organism (12/09/16) Right shoulder pain Seizure disorder (09/17/11) Snoring Vitreomacular traction syndrome of both eyes Surgical History Surgical History Brain Surgery, 05/11/1993 [place] [facility] 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, 2002 Excessive bleeding Tobacco Smoking/Tobacco Use Status: Never Alcohol Alcohol Intake: never Substance Use Substance use: Never Substance use type: does not use Vital Signs and Lab Results Vital Signs Most Recent Vital Signs in EMR: Most Recent Vital Signs Temp Pulse Resp BP Pulse Ox 36.4 C L 91 H 18 141/80 H 95 10/28/22 05:04 10/28/22 05:04 10/28/22 05:04 10/28/22 05:04 10/28/22 05:04 Point of Care Results Point of Care Results: Finger Stick Blood Glucose 158 10/27/22 08:10 Lab Results 10/28/22 06:51 10/28/22 06:51 Blood Type / Crossmatch: No Data to Display Complete Blood Count: White Blood Count 7.48 10^3/uL (4.4-10.8) 10/28/22 06:51 Red Blood Count 4.13 10^6/uL (3.93-5.22) 10/28/22 06:51 Hemoglobin 12.4 g/dL (11.2-15.7) 10/28/22 06:51 Hematocrit 37.5 % (36.0-46.0) 10/28/22 06:51 Platelet Count 237 10^3/uL (130-400) 10/28/22 06:51 Complete Metabolic Panel: Sodium 140 mmol/L (136-145) 10/28/22 06:51 Potassium 3.3 mmol/L (3.5-5.1) L 10/28/22 06:51 Chloride 102 mmol/L (98-107) 10/28/22 06:51 Carbon Dioxide 27.6 mmol/L (21.0-32.0) 10/28/22 06:51 BUN 14 mg/dL (7-18) 10/28/22 06:51 Creatinine 0.8 mg/dL (0.55-1.02) 10/28/22 06:51 Est GFR (CKD-EPI 2020) 79.22 (mL/min/1.73m2) 10/28/22 06:51 Magnesium 1.8 mg/dL (1.8-2.4) 10/28/22 06:51 Calcium 9.0 mg/dL (8.5-10.1) 10/28/22 06:51 Albumin 2.9 g/dL (3.4-5.0) L 10/26/22 05:45 Glucose 93 mg/dL (74-106) 10/28/22 06:51 Hemoglobin A1c 5.4 % (<5.7) 10/25/22 05:51 C-Reactive Protein 11.38 mg/dL (0.0-0.3) H 10/28/22 06:51 Liver Function Panel: Alanine Aminotransferase (ALT/SGPT) 30 U/L (14-59) 10/26/22 05:45 Aspartate Amino Transf (AST/SGOT) 30 U/L (15-37) 10/26/22 05:45 Coagulation Panel: INR International Normalized Ratio 1.1 (0.9-1.1) 10/22/22 21:30 Prothrombin Time 10.7 sec (9.3-11.0) 10/22/22 21:30 Activated Partial Thromboplast Time 28.4 sec (21.5-31.9) 10/22/22 21:30 D-Dimer 806 ng/mlFEU (<500) H 10/22/22 21:30 Cardiac Panel: Troponin I < 50 ng/L (<or=60) 10/24/22 NT-Pro-B Natriuret Pep 1118 pg/mL (<300) H 10/22/22 Arterial Blood Gas: No Data to Display Venous Blood Gas: No Data to Display Pancreas Panel: Lipase 17 U/L (16-77) 10/25/22 05:51 Thyroid Panel: Thyroid Stimulating Hormone (TSH) 4.66 uIU/mL (0.36-3.74) H 10/22/22 21:30 Infectious Disease: Coronavirus (COVID-19)(PCR) Negative (Negative) 10/25/22 15:05 Coronavirus 2019 Source Nasal/Nares 10/25/22 15:05 Blood Cultures: No Data to Display Toxicology Panel: No Data to Display Imaging and Studies Imaging and Studies Study information below may be from another EMR and interpreted by another provider. Please see original notes in EMR for more complete details. EKG Summary: 10/24/22: a fib, vent rate 83-109. Echocardiogram Summary: 10/23/22: LVEF 55%, severely dilated atria, mild AR, mild . mild-mod MR, mod TR. RVSP 43 mmHg. Anesthesia Assessment and Plan Anesthesia History Personal History: No History of Anesthesia Complications Family History: No Family History of Anesthesia Complications Exercise Tolerance Exercise Tolerance: Metabolic Equivalents>4 Cardiac & Pulmonary Exam Cardiac Exam: Normal S1/S2 Heart Sounds Pulmonary Exam: Clear Bilateral Breath Sounds Implantable Cardiac Device Does patient have a Pacemaker or an ICD?: No Airway Exam Known Difficult Airway: No Mallampati Class: 4 Mouth Opening: Normal (> 3cm) Thyromental Distance: Greater than 3 cm Neck Range of Motion: Limited ROM Neck Circumference: Normal Teeth Condition: Normal Dentition ASA Classification ASA Score: ASA 3 Emergency Case?: No NPO Status NPO Status: NPO Clears >2 hours, Solids >8 hours Anesthesia Plan Resuscitation Status: Full Code Anesthesia Technique: General Anesthesia Airway Planned: Endotracheal Tube Monitors Used: Standard Monitors Preoperative Comments:: 72 yo female for lap dilia. Admitted recently for acute cholecystitis. Currently receiving Zosyn - next dose due at 12. Sig PMHx: thoracic ascending aortic aneurysm (3.97), renal artery stenosis (left, no intervention), atrial fibrillation (dilt, metop, apixaban - held for 48 hrs), HTN (HCTZ, valsartan), pre DM, JUSTIN, BMI 44, Plan: 2nd NOÉ IV.
[2022-10-28] MEDS: Lactated Ringers 1,000 ML 30 ML IV (12:02)
--- NOTE | 2022-10-28 13:50 | GB_PTH ---
PATIENT: Roberta Hunter LOC: U#:[id number] AGE/SX: 72/F ROOM: 227 RE10/22/[address]: Errol Hinds MD : [id number] BED: A DIS: 10/31/2022 SPEC #: [id number] RECD: 10/28/22 16:11 STATUS: STEPHEN REQ #: [id number] JAROCHO: 10/28/22 13:[address]: Misbah Morris DEPT: Surgical Specimen RECD BY: Ebonie Maynard ENTERED: 10/28/22 16:12 SP TYPE: GB OTHR DR: Se Dorman APRN Tissues: 1 - GALLBLADDER Procedures: GROSS AND MICRO LEVEL 3 Comments: [id number]
[2022-10-28] MEDS: Bupivacaine 0.25% Pres-Free 30 ML VIAL (14:08)
--- NOTE | 2022-10-28 14:15 | CMPROGNOTE_ITS ---
- If Service Date Differs Date of service: 10/28/22 Time of Service: 14:15 Care Management Progress Note S/O: Roberta was in the OR today when CM attempted to meet with her. Per report, she had an open cholecystectomy with a drain placed. She continues to require hospitalization. She may benefit from HH RN if the drain is in place at the time of discharge. CM will continue to follow. A: Roberta is a 72 year old female admitted to [facility] on 10/22/22 for atypical chest pain, HTN, cholelithiasis. P: Anticipate Roberta will return home once medically cleared. She will be driven home via private vehicle by a friend vs RCT. She will follow up with her PCP and discharge plan of care. CM will continue to follow.
[2022-10-28] MEDS: Nystatin POWDER 60 GM JAR TP ×2 (14:32→20:05)
[2022-10-28] MEDS: Normal Saline Flush 10 ML SYR IVP ×3 (15:15→23:32)
[2022-10-28] MEDS: HYDROmorphone 2 MG/ML SYR IVP ×2 (15:15→15:33)
--- NOTE | 2022-10-28 16:03 | W.PM.OP ---
Date of service: 10/28/22 Time of Service: 14:30 Operative Note Operative Note DATE OF PROCEDURE: 10/28/22 PRE-OP DIAGNOSIS: Cholecystitis POST-OP DIAGNOSIS: same PROCEDURE: Open cholecystectomy SURGEON: Errol Hinds TRUMPET TEACHER: Dianne Pickard ANESTHESIA TYPE: General LMA/ETT Refer to Anesthesia Record ESTIMATED BLOOD LOSS: 250 PATHOLOGY: other (Gallbladder) COMPLICATIONS: None Patient was transported to: PACU Patient's condition: stable Indications: Roberta is a 72-year-old woman with a CAT scan concerning for cholecystitis. She underwent a follow-up ultrasound that demonstrated massive cholelithiasis. She then underwent a HIDA scan yesterday that demonstrated nonvisualization of the gallbladder. I discussed the findings of the test with the patient today, and she provided informed consent for cholecystectomy Procedure Description: After the induction of general endotracheal anesthesia, I prepped and draped the anterior abdominal wall in the usual fashion. I made a longitudinal incision above the umbilicus and dissected down to the fascia which was grasped with Camila clamps. The fascia was elevated, and divided sharply in between. I then entered the peritoneal cavity under direct vision. A 12 mm Park port was affixed into the umbilical position with interrupted Vicryl sutures on the fascia. The peritoneum was then insufflated, and a 5 mm 30 degree scope was then introduced. The gallbladder was massively distended, with dense adhesions of the greater omentum surrounding the dome. Next, I inserted a 5 mm port in the mid epigastric position, as well as a 5 mm port in the right flank. I attempted to dissect the greater omentum off of the gallbladder. The adhesions were quite inflamed and dense. I divided them with electrocautery. As I mobilized the gallbladder down onto the gallbladder body, it was evident that I would not be able to pursue this laparoscopically because of the thick nature of adhesions around the gallbladder body towards the infundibulum, and inability to safely identify normal anatomic structures and planes. Therefore, I removed the ports, made a right upper quadrant subcostal incision. I dissected down through the fat and incised the anterior and posterior fascia with division of the muscle layers in between. I entered the peritoneum, and opened it along the length of the incision. Next, I grasped the dome of the gallbladder and used electrocautery to begin the plane between the gallbladder and the liver within the gallbladder fossa. Again this was quite inflamed. I continued this dissection laterally to avoid the critical structures. As I brought it down onto the gallbladder infundibulum, I continued the dissection towards the medial side. Great care was taken to ensure that the dissection was superficial to the hepatic plate, as well as the area of the common bile duct. Because the inflammation was quite severe I attempted to come down on the gallbladder as far as possible acknowledging that this may in fact be a subtotal cholecystectomy. As I brought this dissection down the medial side, I was able to identify the cystic artery which was divided and suture-ligated. The gallbladder was full of stones, including a massive stone that I was able to manipulate up into the gallbladder dome. This allowed for better dissection of the gallbladder infundibulum. Once this area was dissected, I used a Anita clamp to divide the area of the distal gallbladder near the cystic duct. I excised the gallbladder with Metzenbaum scissors, and passed it off the operative field. I irrigated the surgical site, and there was minimal bleeding. I suture-ligated the remaining portion of soft tissue at the neck of the gallbladder. Again, I irrigated the field. Because of the severity of the inflammation, and the dissection of thick inflammatory tissue within the gallbladder fossa, I felt the safest thing to do is leave the drain in this area should she develop a bile leak. Therefore, I used a 19 Romansh Jorge drain in the gallbladder fossa and brought out through the right flank laparoscopy port incision. I fixed this in place with a suture, allowed the greater omentum and normal soft tissues to retract of the normal positions, and I closed the posterior fascial sheath with running 2-0 PDS suture. I then irrigated the overlying muscle, and closed the anterior fascia with running 2-0 sutures as well. The overlying skin and soft tissue was irrigated, and the deep fat was approximated with interrupted Vicryl stitches prior to closing the skin with a surgical stapler. I then turned my attention to the umbilical port site. I closed the fascial defect with a [id number] Vicryl stitch, irrigated the wound, and closed the fat with an interrupted Vicryl. The skin was closed here with surgical raman as well. Suction was placed to close suction bulb drainage, and a yeni dressing was used in the right upper quadrant. The patient was then brought to the PACU for recovery
--- NOTE | 2022-10-28 16:09 | W.ANESPOSTOP ---
Postoperative Evaluation Date, Time and Location Date Performed: 10/28/22 Time Performed: 16:09 Patient Location: PACU Vital Signs Most Recent Imported Vital Signs: Most Recent Vital Signs Temp Pulse Resp BP Pulse Ox 36.4 C L 98 H 23 152/71 H 98 10/28/22 15:55 10/28/22 15:55 10/28/22 15:55 10/28/22 15:55 10/28/22 15:55 Pain Score Most Recent Pain Score: Most Recent Pain Score Pain Level 2 10/28/22 15:55 Assessment Mental Status: Arousable with meaningful communication Airway and Respiratory Function: Patent airway with normal (patient baseline) respiratory exam Cardiovascular Function: Hemodynamically Stable Hydration Status: Adequately Hydrated Nausea & Vomiting: No Nausea or Vomiting Pain: Pain is tolerable per patient Peripheral Nerve Block: Patient did not receive a nerve block
--- NOTE | 2022-10-28 16:40 | W.PM.PROGNOT ---
Date of Service Date of service: 10/28/22 Time of Service: 16:40 Assessment and Plan Assessment and plan (1) Acute cholecystitis: Status: Acute Assessment and plan: s/p open cholecystectomy Continue zosyn. Eliquis on hold for 48 hr postoperative. (2) Cholelithiasis: Status: Chronic Assessment and plan: As above. (3) Hypertension: Assessment and plan: Blood pressures were rather elevated on admission but did not reach hypertensive urgency stages. They are improved now on combination of diltiazem and metoprolol and her hydrochlorothiazide and her valsartan. Consider switching hydrochlorothiazide to chlorthalidone which has better blood pressure control. While she is n.p.o. we can use IV Lopressor and hydralazine as needed. (4) Thoracic ascending aortic aneurysm: Status: Acute Assessment and plan: As above BP control. (5) Left renal artery stenosis: Status: Acute Assessment and plan: On an ARB. Continue. Vascular surgery f/u. (6) Atrial fibrillation: Status: Chronic Assessment and plan: HR has been controlled. Continue metoprolol, carzdizem. Hold eliquis. Qualifiers: Atrial fibrillation type: longstanding persistent Qualified Code(s): I48.11 - Longstanding persistent atrial fibrillation (7) Hypomagnesemia: Start date: 10/22/22 Status: Resolved Assessment and plan: Recheck in am. (8) DVT prophylaxis: Status: Acute Assessment and plan: Hold eliquis. SCDs. (9) Discharge planning issues: Status: Acute Assessment and plan: Full code Continues to require hospitalization. Subjective Subjective Interval history since last seen: Patient has returned from the OR to her room after having an open cholecystectomy for gangrenous cholecystitis. She is hemodynamically stable. Patient's pain seems to be controlled. She still little lethargic from the anesthesia but awakens easily and answers questions appropriately. Exam Narrative Exam Narrative: Morbidly obese female lying in bed in the semi-Fowlers position she is lethargic but awakens easily answers questions appropriately oriented to person place and circumstance. Lungs are clear to auscultation Heart is irregularly irregular Abdomen obese status post cholecystectomy without active bowel sounds. She has a ESAU drain in place with some sanguinous drainage Legs without calf or thigh tenderness she has MOSES hose on. No peripheral cyanosis. Objective Last Vital Signs Temp 36.4 C L 10/28/22 15:55 Pulse 98 H 10/28/22 15:55 Resp 23 10/28/22 15:55 BP 152/71 H 10/28/22 15:55 Pulse Ox 98 10/28/22 15:55 Laboratory Results - last 24 hr 10/28/22 10/28/22 06:51 06:51 WBC 7.48 RBC 4.13 Hgb 12.4 Hct 37.5 MCV 91 MCH 30.0 MCHC 33.1 RDW 13.2 Plt Count 237 MPV 10.0 Immature Gran % 0.4 Neutrophils % 61.4 Lymphocytes % 22.6 Monocytes % 13.0 Eosinophils % 2.1 Basophils % 0.5 Nucleated RBC % 0.0 Absolute Neutrophils 4.59 Absolute Lymphocytes 1.69 Absolute Monocytes 0.97 H Absolute Eosinophils 0.16 Absolute Basophils 0.04 Sodium 140 Potassium 3.3 L Chloride 102 Carbon Dioxide 27.6 Anion Gap 10.4 BUN 14 Creatinine 0.8 Est GFR (CKD-EPI 2020) 79.22 Glucose 93 Calcium 9.0 Magnesium 1.8 C-Reactive Protein 11.38 H Time Spent with Patient Time Spent with Patient: <25 minutes Time was spent: preparing to see the patient(eg.review tests), referring, communicating with other health care transition manager (case discussed w/ Dr. Hinds) and care coordination
[2022-10-28 16:49] LABS: Potassium 3.6 mmol/L (3.5-5.1)
[2022-10-28] MEDS: POTASSIUM CHLORIDE 20 MEQ/100 ML BAG 50 MEQ IVPB ×2 (16:51→19:23)
[2022-10-28] MEDS: Atorvastatin 40 MG TAB 80 MG PO (19:51)
[2022-10-28] MEDS: Citalopram 20 MG TAB PO (23:29)
[2022-10-29] VITALS (9 sets, daily range): BP systolic 111–178; BP diastolic 64–84; PULSE 74–98; RESP 16–18; TEMP 35.9–36.6; O2SAT 96–99
[2022-10-29] MEDS: Metoprolol 25 MG TAB PO ×2 (03:29→11:47)
[2022-10-29] MEDS: dilTIAZem 60 MG TAB 90 MG PO ×2 (05:48→11:46)
[2022-10-29] MEDS: PIPERACILLIN/TAZO 3.375 GM in Normal Saline 50 ML IVPB ×4 (05:49→23:12)
[2022-10-29 06:52] LABS: Abs Immature Grans 0.07 10^3/uL (0.0-0.06); Absolute Basophil Count 0.02 10^3/uL (0.0-0.2); Absolute Lymphocyte Count 0.98 10^3/uL (1.2-3.4); Absolute Monocyte Count 0.66 10^3/uL (0.1-0.8); Absolute Neutrophil Count 10.03 10^3/uL (1.2-6.7); Basophils % 0.2; HCT 37.7 % (36.0-46.0); HGB 12.6 g/dL (11.2-15.7); Immature Grans % 0.6; Lymphocytes % 8.3; MCH 30.2 pg (27.0-33.0); MCHC 33.4 % (32.0-36.0); MCV 90 fL (80-95); MPV 10.3 fL (8.0-11.0); Monocytes % 5.6; Neutrophils % 85.3; Platelet Count 261 10^3/uL (130-400); RBC 4.17 10^6/uL (3.93-5.22); RDW-SD 43.1 fL; WBC 11.76 10^3/uL (4.4-10.8)
[2022-10-29 07:03] LABS: Anion Gap 7.5 mmol/L (3-11); BUN 13 mg/dL (7-18); CO2 28.5 mmol/L (21.0-32.0); CREATININE 0.8 mg/dL (0.55-1.02); Chloride 101 mmol/L (98-107); Estimated GFR 79.22 (mL/min/1.73m2); Glucose 115 mg/dL (74-106); Potassium 3.7 mmol/L (3.5-5.1); Sodium 137 mmol/L (136-145)
[2022-10-29 07:37] LABS: ALT 55 U/L (14-59); AST 64 U/L (15-37); Albumin 2.7 g/dL (3.4-5.0); Alkaline Phosphatase 91 U/L (46-116); Anion Gap 10.3 mmol/L (3-11); BUN 13 mg/dL (7-18); Bilirubin, Total 0.5 mg/dL (0.2-1.0); CO2 27.7 mmol/L (21.0-32.0); CREATININE 0.8 mg/dL (0.55-1.02); Calcium 8.9 mg/dL (8.5-10.1); Chloride 100 mmol/L (98-107); Estimated GFR 79.22 (mL/min/1.73m2); Glucose 112 mg/dL (74-106); Potassium 3.8 mmol/L (3.5-5.1); Sodium 138 mmol/L (136-145); Total Protein 6.5 g/dL (6.4-8.2)
[2022-10-29] MEDS: hydroCHLOROthiazide 25 MG TAB PO (08:22)
[2022-10-29] MEDS: Magnesium Oxide 400 MG TAB PO ×2 (08:22→19:53)
[2022-10-29] MEDS: Valsartan 80 MG TAB 160 MG PO (08:22)
[2022-10-29] MEDS: Pantoprazole 40 MG VIAL IVP ×2 (08:22→19:53)
[2022-10-29] MEDS: Multivitamin TAB 1 TAB PO (08:22)
[2022-10-29] MEDS: Ascorbic Acid 500 MG TAB PO (08:22)
[2022-10-29] MEDS: Vitamins B Comp w/C TAB 1 TAB PO (08:22)
[2022-10-29] MEDS: Aspirin E.C. 81 MG TABEC PO (08:36)
[2022-10-29] MEDS: Nystatin POWDER 60 GM JAR TP ×3 (08:37→19:54)
--- NOTE | 2022-10-29 15:16 | W.PM.PROGNOT ---
Date of Service Date of service: 10/29/22 Time of Service: 15:16 Assessment and Plan Assessment and plan (1) Acute cholecystitis: Status: Acute Assessment and plan: Her labs today are very reassuring. Hopefully, her diet will increase Wellbutrin today. We will continue the current pain management. Following the drain right upper quadrant 24 hours or so, and reassess because of the character of the effluent. Hopefully, we will be able to resume her anticoagulation in the next day or so. Subjective Subjective Interval history since last seen: She has a fair amount of postoperative pain, but generally speaking, she is doing well. Not much appetite this morning. Exam GI Inspection: normal to inspection and non-distended Palpation: soft and tender Other: Drain is nonbilious, with still little bloody Objective Last Vital Signs Temp 97.3 F L 10/29/22 11:26 Pulse 86 10/29/22 11:26 Resp 18 10/29/22 11:26 BP 178/72 H 10/29/22 11:26 Pulse Ox 99 10/29/22 11:26 Laboratory Results - last 24 hr 10/28/22 10/29/22 10/29/22 16:32 05:52 05:52 WBC 11.76 H RBC 4.17 Hgb 12.6 Hct 37.7 MCV 90 MCH 30.2 MCHC 33.4 RDW 13.0 Plt Count 261 MPV 10.3 Immature Gran % 0.6 Neutrophils % 85.3 Lymphocytes % 8.3 Monocytes % 5.6 Eosinophils % 0.0 Basophils % 0.2 Nucleated RBC % 0.0 Absolute Neutrophils 10.03 H Absolute Lymphocytes 0.98 L Absolute Monocytes 0.66 Absolute Eosinophils 0.00 Absolute Basophils 0.02 Sodium 137 Potassium 3.6 3.7 Chloride 101 Carbon Dioxide 28.5 Anion Gap 7.5 BUN 13 Creatinine 0.8 Est GFR (CKD-EPI 2020) 79.22 Glucose 115 H Calcium 9.0 Total Bilirubin AST ALT Alkaline Phosphatase Total Protein Albumin 10/29/22 05:52 WBC RBC Hgb Hct MCV MCH MCHC RDW Plt Count MPV Immature Gran % Neutrophils % Lymphocytes % Monocytes % Eosinophils % Basophils % Nucleated RBC % Absolute Neutrophils Absolute Lymphocytes Absolute Monocytes Absolute Eosinophils Absolute Basophils Sodium 138 Potassium 3.8 Chloride 100 Carbon Dioxide 27.7 Anion Gap 10.3 BUN 13 Creatinine 0.8 Est GFR (CKD-EPI 2020) 79.22 Glucose 112 H Calcium 8.9 Total Bilirubin 0.5 AST 64 H ALT 55 Alkaline Phosphatase 91 Total Protein 6.5 Albumin 2.7 L Time Spent with Patient Time Spent with Patient: <25 minutes Time was spent: preparing to see the patient(eg.review tests), indepentently interpreting results and counseling the patient
--- NOTE | 2022-10-29 16:29 | PGE_ITS ---
Date of Service Date of service: 10/29/22 Time of Service: 16:30 Assessment and Plan Assessment and plan (1) Acute cholecystitis: Status: Acute Assessment and plan: Status post open cholecystectomy yesterday. She is now on her second postoperative day. She is doing remarkably well. Patient is already asking when she can go home. Dr. Hinds indicated to her that he would like to see the ESAU drain removed prior to discharge and indicated if she continues to improve the way she is done overnight she will likely be discharged in [address] Hinds is agreed to transfer the patient over to the surgical service. We will continue to follow her from medical standpoint until discharge. Professional time spent interviewing and examining patient, discussion of goals of care with hospital team (care management, nursing and consulting professionals) was 20 minutes. (2) Atrial fibrillation: Status: Chronic Assessment and plan: Atrial fibrillation rate is reasonably controlled. She was put on short acting diltiazem and metoprolol. At home she was just on Cardizem CD. I will resume her Cardizem CD and discontinue her metoprolol at this point. I think we can get rid of her telemetry at this point. We are continuing to withhold her apixaban for another 24 hours. Qualifiers: Atrial fibrillation type: longstanding persistent Qualified Code(s): I48.11 - Longstanding persistent atrial fibrillation (3) Essential hypertension: Status: Chronic Assessment and plan: BP is well controlled. We will continue her Cardizem CD and resume her valsartan. (4) Discharge planning issues: Status: Acute Assessment and plan: Possible discharge in the next 48 hours. (5) DVT prophylaxis: Status: Acute Assessment and plan: Continue SCD. We will resume her apixaban tomorrow. Subjective Subjective Interval history since last seen: Patient was seen with Dr. Errol Hinds. Patient overall feels much better today. Pain seems to be reasonably controlled she is tolerating her diet. She is passing flatus but denies any bowel movement yet. Ama[place]-Hill drain still with some serosanguineous drainage. Patient seems to be ambulating fairly well. Exam Narrative Exam Narrative: Please female sitting up in her chair alert and oriented person place time circumstance no acute distress. Lungs are clear to auscultation Heart is irregular regular at a controlled rate Abdomen obese with active bowel sounds soft novelty twister tender over the right side at the site of her cholecystectomy. Lower extremities obese but without pitting edema Objective Last Vital Signs Temp 36.6 C 10/29/22 15:55 Pulse 75 10/29/22 15:55 Resp 16 10/29/22 15:55 BP 138/64 10/29/22 15:55 Pulse Ox 97 10/29/22 15:55 Laboratory Results - last 24 hr 10/28/22 10/29/22 10/29/22 16:32 05:52 05:52 WBC 11.76 H RBC 4.17 Hgb 12.6 Hct 37.7 MCV 90 MCH 30.2 MCHC 33.4 RDW 13.0 Plt Count 261 MPV 10.3 Immature Gran % 0.6 Neutrophils % 85.3 Lymphocytes % 8.3 Monocytes % 5.6 Eosinophils % 0.0 Basophils % 0.2 Nucleated RBC % 0.0 Absolute Neutrophils 10.03 H Absolute Lymphocytes 0.98 L Absolute Monocytes 0.66 Absolute Eosinophils 0.00 Absolute Basophils 0.02 Sodium 137 Potassium 3.6 3.7 Chloride 101 Carbon Dioxide 28.5 Anion Gap 7.5 BUN 13 Creatinine 0.8 Est GFR (CKD-EPI 2020) 79.22 Glucose 115 H Calcium 9.0 Total Bilirubin AST ALT Alkaline Phosphatase Total Protein Albumin 10/29/22 05:52 WBC RBC Hgb Hct MCV MCH MCHC RDW Plt Count MPV Immature Gran % Neutrophils % Lymphocytes % Monocytes % Eosinophils % Basophils % Nucleated RBC % Absolute Neutrophils Absolute Lymphocytes Absolute Monocytes Absolute Eosinophils Absolute Basophils Sodium 138 Potassium 3.8 Chloride 100 Carbon Dioxide 27.7 Anion Gap 10.3 BUN 13 Creatinine 0.8 Est GFR (CKD-EPI 2020) 79.22 Glucose 112 H Calcium 8.9 Total Bilirubin 0.5 AST 64 H ALT 55 Alkaline Phosphatase 91 Total Protein 6.5 Albumin 2.7 L Time Spent with Patient Time Spent with Patient: <25 minutes Time was spent: preparing to see the patient(eg.review tests), referring, communicating with other health family day care provider, indepentently interpreting results and care coordination
--- NOTE | 2022-10-29 16:44 | PDOC.CMPRO ---
- If Service Date Differs Date of service: 10/29/22 Time of Service: 16:44 Care Management Progress Note S/O: Roberta was sitting up in her recliner playing solitaire when CM met with her. She is pleasant and easily engage in conversation. She is being followed by Surgical team and is being closely monitored and tolerating meals. Roberta may benefit from HH RN if the drain is in place at the time of discharge. CM will continue to follow. A: Roberta is a 72 year old female admitted to [facility] on 10/22/22 for atypical chest pain, HTN, cholelithiasis. P: Anticipate Roberta will return home once medically cleared. She will be driven home via private vehicle by a friend vs RCT. She will follow up with her PCP and discharge plan of care. CM will continue to follow.
[2022-10-29] MEDS: dilTIAZem CD 120 MG CAPCR PO (18:08)
[2022-10-29] MEDS: Normal Saline Flush 10 ML SYR IVP ×2 (19:53→23:12)
[2022-10-29] MEDS: Atorvastatin 40 MG TAB 80 MG PO (19:53)
[2022-10-29] MEDS: Citalopram 20 MG TAB PO (23:11)
[2022-10-30 03:25] VITALS: BP 133/73; PULSE 100; RESP 16; TEMP 36.5; O2SAT 98
[2022-10-30] MEDS: PIPERACILLIN/TAZO 3.375 GM in Normal Saline 50 ML IVPB ×2 (05:16→13:25)
[2022-10-30] MEDS: Normal Saline Flush 10 ML SYR IVP ×3 (05:17→21:28)
[2022-10-30 07:48] VITALS: BP 128/75; PULSE 88; RESP 18; TEMP 36.3; O2SAT 96
[2022-10-30] MEDS: hydroCHLOROthiazide 25 MG TAB PO (08:23)
[2022-10-30] MEDS: Aspirin E.C. 81 MG TABEC PO (08:23)
[2022-10-30] MEDS: Magnesium Oxide 400 MG TAB PO ×2 (08:23→19:50)
[2022-10-30] MEDS: Ascorbic Acid 500 MG TAB PO (08:23)
[2022-10-30] MEDS: Vitamins B Comp w/C TAB 1 TAB PO (08:23)
[2022-10-30] MEDS: Valsartan 80 MG TAB 160 MG PO (08:23)
[2022-10-30] MEDS: Multivitamin TAB 1 TAB PO (08:23)
[2022-10-30] MEDS: dilTIAZem CD 180 MG CAPCR 360 MG PO (08:24)
--- NOTE | 2022-10-30 08:43 | W.PM.PROGNOT ---
Date of Service Date of service: 10/30/22 Time of Service: 08:43 Assessment and Plan Assessment and plan (1) Acute cholecystitis: Status: Acute Assessment and plan: Tolerating post-op diet ESAU drain with sangineous drainage. MANDIE dressing in place. Pain is well controlled Encouraged ambulation throughout the day Continue pulmonary toilet D/C home later today or tomorrow. I have seen and examined the patient and agree with Nuria Pickard's assessment above. Will discuss with Dr. Hinds when to restart Eliquis. Subjective Subjective Interval history since last seen: Arrive with the patient sitting in the chair. She states that she did not sleep well last night. She describes her abdominal discomfort is significantly less compared to yesterday. She denies any nausea, vomiting, fevers or chills. She has had a BM. She reports a good appetite, and is eating well without nausea. She has been ambulating in the hilliard. Exam Const General: cooperative, healthy appearing and comfortable Orientation: alert and oriented x3 Resp Effort & Inspection: normal respiratory effort, no audible wheezes and no cough GI Other: Abdomen is soft, slightly tender to palpation ESAU drain with sanguineous drainage. MANDIE dressing in place over the RUQ incision site Objective Last Vital Signs Temp 36.3 C L 10/30/22 07:48 Pulse 88 10/30/22 07:48 Resp 18 10/30/22 07:48 BP 128/75 10/30/22 07:48 Pulse Ox 96 10/30/22 07:48 Time Spent with Patient Time Spent with Patient: <25 minutes Time was spent: preparing to see the patient(eg.review tests), obtaining and/or reviewing separately otained hiistory, ordering medications,tests, procedures, referring, communicating with other health acute care nurse practitioner, indepentently interpreting results and counseling the patient
[2022-10-30] MEDS: Nystatin POWDER 60 GM JAR TP ×3 (08:57→19:50)
[2022-10-30] MEDS: Pantoprazole 40 MG VIAL IVP (09:19)
[2022-10-30 11:23] VITALS: BP 140/77; PULSE 92; RESP 16; TEMP 36.5; O2SAT 97
--- NOTE | 2022-10-30 15:04 | CMPROGNOTE_ITS ---
- If Service Date Differs Date of service: 10/30/22 Time of Service: 15:04 Care Management Progress Note S/O: Roberta was sitting up in her chair when CM met with her. She stated that per MD, she will likely be ready for discharge tomorrow. CM discussed services at home, suggesting that an RN visit her at home to help manage her drains. She stated that she is very independent and has friends who can help her, if needed. Roberta stated that she is going to need a letter to support her return back to work, when appropriate. CM will continue to follow. A: Roberta is a 72 year old female admitted to [facility] on 10/22/22 for atypical chest pain, HTN, cholelithiasis. P: Anticipate Roberta will return home once medically cleared. She will be driven home via private vehicle by a friend vs RCT. She will follow up with her PCP and discharge plan of care. CM will continue to follow.
[2022-10-30 15:23] VITALS: BP 109/71; PULSE 93; RESP 14; TEMP 36.5; O2SAT 97
--- NOTE | 2022-10-30 16:24 | W.PM.PROGNOT ---
Date of Service Date of service: 10/30/22 Time of Service: 16:24 Assessment and Plan Assessment and plan (1) Acute cholecystitis: Status: Acute Assessment and plan: Status post open cholecystectomy 10/28. She is now on her third postoperative day. She is doing remarkably well. I discussed her case w/ Dr. Dorman regarding discharge plans. As there is still some minimal blood drainage from the ESAU drain, I am inclined to wait one more day before restarting her Eliquis. Dr. Dorman anticipates discharge home tomorrow Professional time spent interviewing and examining patient, discussion of goals of care with hospital team (care management, nursing and consulting professionals) was 15 minutes. (2) Atrial fibrillation: Status: Chronic Assessment and plan: Resume apixaban tomorrow morning. As for her rate control. She had better rate control on combination of diltiazem and lopressor. SHe was put on lopressor 25 mg q6h and diltiazem 90 mg q6hr perioperatively. I have her back on her home dose of Cardizem CD 360 mg daily. I will add back some sustained release metoprolol, I will start her on Toprol XL 25 mg daiy beginning today. I will order outpatient cartdiac event recorder upon discharge to assess afib rate control. Qualifiers: Atrial fibrillation type: longstanding persistent Qualified Code(s): I48.11 - Longstanding persistent atrial fibrillation (3) Essential hypertension: Status: Chronic Assessment and plan: BP is well controlled. We will continue her Cardizem CD and resume her valsartan. Will need to carefully monitor her BP with addition of Toprol XL 25 mg (4) Discharge planning issues: Status: Acute Assessment and plan: Probable discharge in the a.m.. (5) DVT prophylaxis: Status: Acute Assessment and plan: Continue SCD. Resume apixaban tomorrow morning Subjective Subjective Patient reports: no new complaints, feels better, flatus and bowel movement; denies nausea, vomiting or shortness of breath Exam Narrative Exam Narrative: Roberta is sitting up in her chair, A&Ox 3, NAD Lungs: clear Heart: irregularly irregular, not tachycardic but relatively higher than expected for resting HR, she has been in the 90's Abdomen: obese, soft, nontender, ESAU drain w/ minimal serosanguinous drainage Objective Last Vital Signs Temp 36.5 C 10/30/22 15:23 Pulse 93 H 10/30/22 15:23 Resp 14 10/30/22 15:23 BP 109/71 10/30/22 15:23 Pulse Ox 97 10/30/22 15:23 Time Spent with Patient Time Spent with Patient: <25 minutes Time was spent: ordering medications,tests, procedures, referring, communicating with other health child caregiver private home, counseling the patient and care coordination
[2022-10-30] MEDS: Metoprolol CR 25 MG TABCR PO (16:50)
[2022-10-30] MEDS: Atorvastatin 40 MG TAB 80 MG PO (19:51)
[2022-10-30] MEDS: Pantoprazole 40 MG TABCR PO (19:51)
[2022-10-30 20:03] VITALS: BP 123/78; PULSE 93; RESP 18; TEMP 36.6; O2SAT 97
[2022-10-30] MEDS: Citalopram 20 MG TAB PO (21:28)
[2022-10-30 23:34] VITALS: BP 126/85; PULSE 102; RESP 16; TEMP 36.6; O2SAT 95
[2022-10-31 03:10] VITALS: BP 128/85; PULSE 81; RESP 16; TEMP 36.4; O2SAT 97
[2022-10-31 07:18] VITALS: BP 138/86; PULSE 95; RESP 17; TEMP 36; O2SAT 94
[2022-10-31] MEDS: Vitamins B Comp w/C TAB 1 TAB PO (07:22)
[2022-10-31] MEDS: Aspirin E.C. 81 MG TABEC PO (07:22)
[2022-10-31] MEDS: hydroCHLOROthiazide 25 MG TAB PO (07:22)
[2022-10-31] MEDS: Pantoprazole 40 MG TABCR PO (07:23)
[2022-10-31] MEDS: Multivitamin TAB 1 TAB PO (07:23)
[2022-10-31] MEDS: Ascorbic Acid 500 MG TAB PO (07:23)
[2022-10-31] MEDS: Normal Saline Flush 10 ML SYR IVP ×2 (07:23→10:06)
[2022-10-31] MEDS: Magnesium Oxide 400 MG TAB PO (07:23)
[2022-10-31] MEDS: dilTIAZem CD 180 MG CAPCR 360 MG PO (07:23)
[2022-10-31] MEDS: Valsartan 80 MG TAB 160 MG PO (07:23)
[2022-10-31 07:43] VITALS: BP 140/81; PULSE 82; RESP 16; TEMP 36.7; O2SAT 98
[2022-10-31] MEDS: Metoprolol CR 25 MG TABCR PO (08:31)
[2022-10-31] MEDS: Apixaban 5 MG TAB PO (09:44)
[2022-10-31] MEDS: Nystatin POWDER 60 GM JAR TP (10:05)
[2022-10-31 11:18] VITALS: BP 118/68; PULSE 65; RESP 14; TEMP 35.9; O2SAT 100
--- NOTE | 2022-10-31 12:01 | PGE_ITS ---
Date of Service Date of service: 10/31/22 Time of Service: 12:01 Assessment and Plan Assessment and plan (1) Acute cholecystitis: Status: Acute Assessment and plan: Status post open cholecystectomy 10/28. She is now on her fourth postoperative day. She is doing remarkably well. I discussed her case w/ Dr. Dorman regarding discharge plans. Dr. Dorman is here to see the patient I spoke with Dr. Dorman she feels the patient is ready for discharge but she wants to keep the ESAU drain in until the patient follows up with Dr. Jacques on Wednesday. Professional time spent interviewing and examining patient, discussion of goals of care with hospital team (care management, nursing and consulting professionals) was 15 minutes. (2) Atrial fibrillation: Status: Chronic Assessment and plan: Apixaban was resumed this morning. Patient is known to Toprol-XL 25 mg daily and Cardizem CD 240 mg daily. I have sent a prescription for the Toprol XL. Qualifiers: Atrial fibrillation type: longstanding persistent Qualified Code(s): I48.11 - Longstanding persistent atrial fibrillation (3) Essential hypertension: Status: Chronic Assessment and plan: BP is well controlled. Continue valsartan with hydrochlorothiazide as well as Cardizem CD as well as Toprol-XL. (4) Discharge planning issues: Status: Acute Assessment and plan: Discharge home today. Patient does not require any home health services. Follow-up will be with Dr. Jacques on Wednesday. Patient should have a follow-up with her primary care provider in the next week to 10 days. (5) DVT prophylaxis: Status: Acute Assessment and plan: Continue SCD. Resume apixaban tomorrow morning Subjective Subjective Interval history since last seen: Roberta is tolerating her diet quite well and has no nausea or vomiting. Abdominal pain is minimal. She is passing flatus and bowel movements without difficulty. She would like to return home today. I told her that is up to the surgeon to discharge her. I did recommend that she go on combination of Toprol-XL along with her Cardizem CD as this has provided much improved rate control her atrial fibrillation. Patient's apixaban was restarted today. Exam Narrative Exam Narrative: Pleasant morbidly obese female sitting up in a chair she is alert and oriented person place time circumstance she is in no acute distress. Lungs are clear to auscultation Heart is irregularly irregular at a controlled rate Abdomen obese but soft normal bowel sounds mild tenderness in the right upper quadrant. ESAU drain with serosanguineous fluid. Record reveals that she had 40 mL yesterday and since midnight she has had 15 mL of her ESAU drain. Extremities without peripheral edema or cyanosis Objective Last Vital Signs Temp 35.9 C L 10/31/22 11:18 Pulse 65 10/31/22 11:18 Resp 14 10/31/22 11:18 BP 118/68 10/31/22 11:18 Pulse Ox 100 10/31/22 11:18 Time Spent with Patient Time Spent with Patient: <25 minutes Time was spent: preparing to see the patient(eg.review tests), ordering medications,tests, procedures, referring, communicating with other health respiratory care assistant, counseling the patient and care coordination
--- NOTE | 2022-10-31 12:01 | DSE_ITS ---
Date of service: 10/31/22 Time of Service: 12:01 DS: Diagnosis Discharge Diagnosis (1) Acute cholecystitis: Status: Acute Asessment and Plan: 72yo female POD#3 s/p laparoscopic to open cholecystectomy. She is doing very well. Ambualting. Voiding. Stooling. And tolerating a diet. Her pain is well- controlled. Drain still with some serosanguinous drainage. --d/c home with drain, MANDIE dressing in place --f/u appt in Surgery office on 11/02 at 1:30pm with Dr. Jacques (2) Atrial fibrillation: Status: Chronic Asessment and Plan: --maintain home Cardizem --Dr. Astorga to advise on metoprolol (3) Essential hypertension: Status: Chronic (4) Discharge planning issues: Status: Acute Discharge Plan Disposition Patient Disposition: Home Condition: Good Discharge Details Reason For Visit: AtypicalChest Pain,HTN Uncontrolled Cholelithiasis Admit Date/Time: 10/22/22 23:48 Admit Provider: Errol Hinds Attending Provider: Errol Hinds Primary Care Provider: Tiffany Patino Hospital Course Hospital Course: This is a 72-year-old female who presented on 10/22 with atypical chest pain that radiated from her abdomen. Initial workup included r/o ACS, and a CT PA, and CT abd/pel were performed. She was admitted with hypertensive urgency. An ascending thoracic aneurysm, left renal artery stenosis, and cholelithiais were noted. Dr. Jeter consulted [facility] and they stated that they could each be managed with blood pressure control, at this point, but she should f/u as an out- patient. Once a primary cardiac origin was ruled out, a HIDA scan demonstrated non- visualization of the gallbladder, and after holding Eliquis for 48 hours, she was taken to the operating room for cholecystectomy. Due to the large nature of her gallstones, and extent of inflammation,the surgery was converted from laparoscopic to open with drain placement. Postoperatively, she has done very well. She has not had significant pain. She is tolerating a diet without nausea. She has been ambulating independently. She feels safe and ready to go home with drain in place. She will f/u in the surgery office in 2 days. Home Meds and New Rx's Prescriptions: New metoprolol succinate [Toprol XL] 25 mg tablet extended release 24 hr 25 mg PO DAILY Qty: 30 0RF Continued ascorbate calcium (vitamin C) 500 mg tablet 500 mg PO DAILY Complex B-100 Tablet Extended Release 1 tab PO DAILY multivitamin [Daily Multi-Vitamin] 1 EACH tablet 1 ea PO DAILY citalopram 20 mg tablet 20 mg PO QHS Qty: 90 3RF valsartan-hydrochlorothiazide 160-25 mg tablet 1 tab PO DAILY Qty: 90 3RF Rx Instructions: for high blood pressure apixaban 5 mg tablet 5 mg PO BID Qty: 180 3RF diltiazem HCl 360 mg capsule,extended release 24hr 360 mg PO DAILY Qty: 90 3RF Discharge Instructions Instructions: Metoprolol (By mouth), A-fib (Atrial Fibrillation) (DC), Open Cholecystectomy (DC) Additional Instructions: Referral to [facility] surgery, Cardiothoracic surgery Referrals: Tiffany Patino NP [Primary Care Provider] - Garima Jacques DO [OSTEOPATHIC DOCTOR] - (F/u November 02 at 1:30pm) Activity:: No lifting >10lbs Equipment/Supplies:: No Equipment Needed Diet:: low fat, advance as tolerated DS: Summary Time Spent with Patient providing and/or coordinating discharge services: Greater than 30 minutes Status at Discharge Functional status at discharge: independent ambulation Overall status at discharge: patient is progressing back to baseline Mental Status: mental status grossly normal Speech and Movement: speech and movement normal Mood: congruent mood Affect: normal affect Exam Const General: cooperative, healthy appearing and comfortable Orientation: alert and oriented x3 Resp Effort & Inspection: normal respiratory effort, no audible wheezes and no cough GI Other: Abdomen is soft, slightly tender to palpation in earlene-incisional area ESAU drain with serosanguineous drainage. MANDIE dressing in place over the RUQ incision site Psych Mental Status: mental status grossly normal Speech and Movement: speech and movement normal Mood: congruent mood Affect: normal affect Thought Process: normal Thought Content: normal Insight: insight good Judgment: judgment good DS: Data Vitals/I&O Vitals and I&O: Vital Signs Temperature 96.6 F L 10/31/22 11:18 Temperature Source Tympanic 10/31/22 11:18 Pulse 65 10/31/22 11:18 Pulse Rhythm Irregular 10/31/22 00:01 Pulse 93 H 10/23/22 00:40 Respiratory Rate 14 10/31/22 11:18 Respiratory Effort Normal, Non-Labored 10/31/22 00:01 Respiratory Depth Normal 10/31/22 00:01 Respiratory Pattern Normal 10/31/22 00:01 Blood Pressure 118/68 10/31/22 11:18 Blood Pressure Mean 78 10/23/22 00:27 Blood Pressure Position Sitting 10/22/22 21:18 Pulse Oximetry 100 10/31/22 11:18 Respiratory End-tidal CO2 41 10/28/22 15:55 Oxygen Delivery Method Room Air 10/31/22 11:18 Oxygen Flow Rate 0 10/31/22 11:18 Pain Level 0 10/31/22 11:18 Comment 0.5/10 pain at ESAU drain site. 10/31/22 07:18 Intake & Output 10/30/22 10/31/22 10/31/22 23:59 11:59 23:59 Intake Total 50 / 150 550 / 550 Output Total 620 / 2440 1365 / 1365 Balance -570 / -2290 -815 / -815 Weight 128.4 kg Intake: IV 50 / 150 Oral 550 / 550 Output: Drainage 20 / 40 15 / 15 Right Mid Anterior Lateral 20 / 40 15 / 15 Abdomen Urine 600 / 2400 1350 / 1350 Other: Urine Color Yellow Straw Urine Appearance Clear Clear Urine Odor Normal Comment pt voids ad anali. pt denies dysuria. pt wears a pad for occassional dribbling Void x1 in the toilet. Stool Size Small Moderate Stool Characteristics Soft Soft Liquid Formed Brown Voiding Methods Toilet Toilet PFSH All Active Problems (Updated 10/28/22 @ 16:52 by Saúl Astorga MD) Acute cholecystitis (Acute) Epigastric pain (Acute) Discharge planning issues (Acute) DVT prophylaxis (Acute) Left renal artery stenosis (Acute) Thoracic ascending aortic aneurysm (Acute) Cholelithiasis (Chronic) Atypical chest pain (Acute) Localized edema (Acute) Pain, foot (Acute) Corns and callosities (Acute) Nail dystrophy (Acute) [place] cardiac risk 10-20% in next 10 years (Chronic) 2020 12.9% Hypercholesterolemia (Chronic ~06/26/21) Chronic anticoagulation (Chronic) Depressive disorder (Chronic 09/17/11) W/LOBECTOMY Pre-diabetes (Chronic ~2016) 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) OS 20/40 05/31/21 TSH elevation (Acute 06/22/17) n= 3.74, her result 3.81 Snoring (Acute 02/02/13) Jayce ordered sleep consult 01/2013 Morbid obesity (Acute 02/02/13) 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 Essential hypertension (Chronic 09/17/11) goal BP 140/90 Atrial fibrillation (Chronic 05/19/12) Onset 2011, Holter 12/2011 AFib throughout, ECHO 12/2008 LVEF 65%+LVH Permanent, clinically silent Managed with rate control 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 Jayce Medical History Advanced directive placed in chart this admission (02/15/18) Afib Back pain Benign paroxysmal positional vertigo (09/17/11) Depression Diverticulosis Diverticulosis of colon (02/15/18) Fatty infiltration of liver (02/15/18) Gallstones Hyperlipidemia Hypertension Impaired ambulation Memory loss Morbid obesity Pneumonia of left lower lobe due to infectious organism (12/09/16) Right shoulder pain Seizure disorder (09/17/11) Snoring Vitreomacular traction syndrome of both eyes Surgical History Brain Surgery, 05/11/1993 Neurosurgery [facility], 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, 2002 Excessive bleeding Family History Mother Diabetes Essential hypertension Heart disease Stroke Father Heart disease Stroke Social History Smoking/Tobacco Use Status: Never Smoking risk assessment performed?: Yes Alcohol Intake: never Drug use: Never Substance use type: does not use Household members: none Housing: other Communication Needs: Corrective Lenses current occupation: works at [employer] Pets and animals: Yes Pets and animals: cat(s) What is your relationship status?: How often do you talk on the phone with friends or family?: once per week Panel score (0-1 are the most socially isolated patients): 0 What type of physical activity do you participate in: other Details: physically active at work Seatbelt use: always Drive intox 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
[2022-10-31] MEDS: Bacitracin 1 PACKET TP (14:00)
--- NOTE | 2022-10-31 16:30 | PDOC.CMDIS ---
- If Service Date Differs Date of service: 10/31/22 Time of Service: 16:30 LACE Index Scoring Tool - Questions: Length of Stay (in days): 7 - 13 Acuity (Admit via E.D.?): Yes E.D. Visits: 1 - Answers: Total Score: 9 Risk of Readmission: Low Risk Care Management Discharge Reason for Hospitalization: Atypical chest pain Discharge Plan: Roberta returned home today with no new services. Her friend drove her home via private vehicle. provided a return to work letter, signed by , which stated that she may return to work in 2-4 weeks, with restrictions of lifting no more than 10-15lbs for 4-6 weeks. She will follow up with surgical services and her discharge plan of care. She is happy to be going home. Patient/Family Education Needs: Review discharge instructions and limitations, discussion of self care needs including ask me three.
== END 2022-10-31 14:50 | disposition home or self-care (01) | DRG 415 ==
LOC: ER 10-23 00:25 → MS 10-23 00:59
PROVIDERS: Family Medicine; Internal Medicine; Admitting Provider Surgery; Emergency Provider Emergency Medicine; PCP Nurse Practitioner Adult Health; Visit Provider Surgery
PROC: 0FT44ZZ Resection of Gallbladder, Percutaneous Endoscopic Approach (ICD-10-PCS; CPT 47562; principal; 2022-10-28 13:00)
DX: K80.12 Calculus of gallbladder with acute and chronic cholecystitis without obstruction (principal); I48.11 Longstanding persistent atrial fibrillation; Z68.41 Body mass index [BMI] 40.0-44.9, adult; R07.89 Other chest pain; E78.00 Pure hypercholesterolemia, unspecified; I10 Essential (primary) hypertension; Z79.01 Long term (current) use of anticoagulants; E83.42 Hypomagnesemia; R60.0 Localized edema; F32.A Depression, unspecified; R73.03 Prediabetes; E66.01 Morbid (severe) obesity due to excess calories; K76.0 Fatty (change of) liver, not elsewhere classified; K57.30 Diverticulosis of large intestine without perforation or abscess without bleeding; R41.3 Other amnesia; G40.909 Epilepsy, unspecified, not intractable, without status epilepticus; H43.823 Vitreomacular adhesion, bilateral; I70.1 Atherosclerosis of renal artery; I71.21 Aneurysm of the ascending aorta, without rupture; I89.0 Lymphedema, not elsewhere classified; K82.8 Other specified diseases of gallbladder; Z53.31 Laparoscopic surgical procedure converted to open procedure
CPT/HCPCS: 47600; 36415; 36416; 71275; 74177; 78227; 80048; 80053; 80076; 82962; 83690; 84145; 85027; 87635; 93005; 93306; 96365; 96366; 96375; 99222; 99232; 99285; 71045; 74019; 76705; 81003; 81015; 83036; 83735; 83880; 84132; 84439; 84443; 84484; 85025; 85379; 85610; 85730; 86140; 87086; 88304; 93010; 99223; 99231; 99233; J0131; J1100; J1170; J1885; J2270; J2370; J2405; J2543; J3475; J3480; J3490

== ENCOUNTER → 2022-11-02 13:08 | Outpatient (BNVA) | payer MEDICARE, SELFPAY | PROVIDERS: PCP Nurse Practitioner Adult Health; Referring Provider Nurse Practitioner Adult Health; Visit Provider Surgery ==

== ENCOUNTER 2022-11-02 15:56 | Outpatient (CLI) | payer MEDICARE, SELFPAY ==
--- NOTE | 2022-11-02 13:45 | DI.US_ITS ---
Exam(s) US LOWER EXTREMITY VENOUS RT EXAM: US LOWER EXTREMITY VENOUS RT CLINICAL HISTORY: pain/swelling/open dilia 10/27,? dvt,[id number]. TECHNIQUE: Lower extremity venous ultrasound performed using grayscale, color-flow, and spectral Do ppler analysis. COMPARISON: No exams were available for comparison FINDINGS: The common femoral, femoral and popliteal veins demonstrate normal compressibility, augmentation, and color Doppler. The posterior tibial veins are patent. No saphenous vein thrombosis or other superfi cial venous thrombosis is seen. No hematoma or Coleman's cyst is seen. Edema in the subcutaneous fat of lower leg. IMPRESSION: Lower leg edema. No evidence of DVT. DATA REPOSITORY:
== END 2022-11-02 16:16 ==
LOC: DI 15:57
PROVIDERS: PCP Nurse Practitioner Adult Health; Visit Provider Surgery
DX: E66.01 Morbid (severe) obesity due to excess calories (principal); E78.00 Pure hypercholesterolemia, unspecified; I10 Essential (primary) hypertension; I48.91 Unspecified atrial fibrillation; I70.1 Atherosclerosis of renal artery; I71.21 Aneurysm of the ascending aorta, without rupture; K57.30 Diverticulosis of large intestine without perforation or abscess without bleeding; K76.0 Fatty (change of) liver, not elsewhere classified; M79.604 Pain in right leg; M79.89 Other specified soft tissue disorders; Z79.01 Long term (current) use of anticoagulants; R60.0 Localized edema
CPT/HCPCS: 93971

== ENCOUNTER 2022-11-03 07:05 | Emergency (ER) | payer MEDICARE, SELFPAY ==
[2022-11-03 07:12] VITALS: BP 137/82; PULSE 89; RESP 15; TEMP 36.6; O2SAT 97
[2022-11-03 07:54] VITALS: RESP 15
--- NOTE | 2022-11-03 08:12 | W.ED.GENAD ---
Discharge Plan Disposition Patient Disposition: Home Discharge Details Clinical Impression: History of cholecystectomy Primary Care Provider: Tiffany Patino ED Provider: Frakn Amaya Home Meds and New Rx's Prescriptions: No Action ascorbate calcium (vitamin C) 500 mg tablet 500 mg PO DAILY Complex B-100 Tablet Extended Release 1 tab PO DAILY multivitamin [Daily Multi-Vitamin] 1 EACH tablet 1 ea PO DAILY citalopram 20 mg tablet 20 mg PO QHS Qty: 90 3RF valsartan-hydrochlorothiazide 160-25 mg tablet 1 tab PO DAILY Qty: 90 3RF Rx Instructions: for high blood pressure apixaban 5 mg tablet 5 mg PO BID Qty: 180 3RF diltiazem HCl 360 mg capsule,extended release 24hr 360 mg PO DAILY Qty: 90 3RF metoprolol succinate [Toprol XL] 25 mg tablet extended release 24 hr 25 mg PO DAILY Qty: 30 0RF Discharge Instructions Additional Instructions: You are seen in the emergency department for the increased drainage from your surgical site. Please go to the general surgery clinic today for follow-up. Please return to the emergency department if you pass out if you develop nausea or vomiting that does not stop or if you have any other concerns. Medical Decision Making This is a quite well-appearing normothermic and not tachycardic 72-year-old female with increased drainage from the site of her surgical drain. She is on apixaban in the setting of her atrial fibrillation which I encouraged her to continue. She has not been nauseous nor vomiting to suggest small bowel obstruction. No fevers nor increased pain to suggest surgical site infection. Vital signs are not concerning for SIRS criteria so I did not send lactate cultures nor treat empirically with antibiotics. Not short of breath tachycardic nor hypoxic to suggest PE. No calf pain to suggest DVT. I spoke with Dr. Dorman from general surgery who requested that the patient be seen in clinic later today. Subsequently, the health manager community development called the general surgery clinic and I spoke to Dr. Mckinley from the general surgery clinic who felt that the drain was clogged and that it should be pulled. She will see the patient later this morning. Given that she is not tachycardic nor pale nor hypotensive my suspicion is exceedingly low for acute blood loss anemia so I did not feel that she required assessment of her hemoglobin level. I have advised the patient to go to the general surgery clinic immediately from the ED. Chronic conditions affecting the care of the patient: Atrial fibrillation on apixaban History obtained from an outside historian: N/A External record review: surgical record from last week Social determinants of health affecting disposition: N/A Management discussed with: General surgery Treatment/interventions considered: N/A HPI General Date/Time Provider Initiated Documentation: 11/03/22 07:08. HPI Narrative: This is a 72-year-old female who is 6 days status post open cholecystectomy now with increased drainage from her drain site. She continues taking her apixaban for her atrial fibrillation. She has not syncopized. She has had no fever shortness of breath nausea vomiting dysuria no frequency. She has been passing gas and had a bowel movement since her surgery. She is not requiring any oral analgesia. She was concerned as there was bleeding on her nightgown this morning at 630am. She was seen yesterday in general surgery clinic. She has her yeni dressing in place. She says that her drain has produced 4 to 6 ounces of bloody drainage per day. She is due to follow-up in 3 days at the general surgery clinic. Related Data Home Medications Medication Instructions Recorded Confirmed multivitamin (Daily Multi-Vitamin 1 ea PO DAILY 01/03/13 11/03/22 tablet) ascorbate calcium (vitamin C) 500 500 mg PO DAILY 06/24/22 11/03/22 mg tablet citalopram 20 mg tablet 20 mg PO QHS #90 tabs 09/16/22 11/03/22 valsartan 160 1 tab PO DAILY HTN #90 tabs 09/16/22 11/03/22 mg-hydrochlorothiazide 25 mg tablet apixaban 5 mg tablet 5 mg PO BID blood thinner #180 tabs 09/21/22 11/03/22 diltiazem HCl 360 mg 360 mg PO DAILY #90 caps 09/24/22 11/03/22 capsule,extended release 24 hr vitamin B complex (Complex B-100 1 tab PO DAILY 10/01/22 11/03/22 tablet,extended release) metoprolol succinate 25 mg 25 mg PO DAILY #30 tabs 10/31/22 11/03/22 tablet,extended release 24 hr (Toprol XL) Previous Rx's Medication Instructions Recorded citalopram 20 mg tablet 20 mg PO QHS #90 tabs 09/16/22 valsartan 160 1 tab PO DAILY HTN #90 tabs 09/16/22 mg-hydrochlorothiazide 25 mg tablet apixaban 5 mg tablet 5 mg PO BID blood thinner #180 tabs 09/21/22 diltiazem HCl 360 mg 360 mg PO DAILY #90 caps 09/24/22 capsule,extended release 24 hr metoprolol succinate 25 mg 25 mg PO DAILY #30 tabs 10/31/22 tablet,extended release 24 hr (Toprol XL) Allergies Allergy/AdvReac Type Severity Reaction Status Date / Time phenobarbital Allergy Intermediate rash Verified 11/03/22 07:16 General Stated Complaint: GenMedical DESTINEE: 3 PFSH All Active Problems (Updated 11/02/22 @ 13:47 by Garima Jacques DO) History of cholecystectomy (Chronic) S/P cholecystectomy (Acute) open Acute cholecystitis due to biliary calculus (Acute) Pain and swelling of right lower extremity (Acute) Acute pain of right lower extremity (Acute) pt s/p open dilia 10/27 DVT prophylaxis (Acute) Left renal artery stenosis (Acute) Thoracic ascending aortic aneurysm (Acute) Localized edema (Acute) Pain, foot (Acute) Corns and callosities (Acute) Nail dystrophy (Acute) [place] cardiac risk 10-20% in next 10 years (Chronic) 2020 12.9% Hypercholesterolemia (Chronic ~06/26/21) Chronic anticoagulation (Chronic) Depressive disorder (Chronic 09/17/11) W/LOBECTOMY Pre-diabetes (Chronic ~2016) 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) OS 20/40 05/31/21 TSH elevation (Acute 06/22/17) n= 3.74, her result 3.81 Snoring (Acute 02/02/13) Jayce ordered sleep consult 01/2013 Morbid obesity (Acute 02/02/13) 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 Atrial fibrillation (Chronic 05/19/12) Onset 2011, Holter 12/2011 AFib throughout, ECHO 12/2008 LVEF 65%+LVH Permanent, clinically silent 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 Jayce Medical History Advanced directive placed in chart this admission (02/15/18) Afib Back pain Benign paroxysmal positional vertigo (09/17/11) Depression Diverticulosis Diverticulosis of colon (02/15/18) Fatty infiltration of liver (02/15/18) Gallstones Hyperlipidemia Hypertension Impaired ambulation Memory loss Morbid obesity Pneumonia of left lower lobe due to infectious organism (12/09/16) Right shoulder pain Seizure disorder (09/17/11) Snoring Vitreomacular traction syndrome of both eyes Surgical History Brain Surgery, 05/11/1993 Neurosurgery [facility] [place], 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, 2002 Excessive bleeding Family History Mother Diabetes Essential hypertension Heart disease Stroke Father Heart disease Stroke Social History Smoking/Tobacco Use Status: Never Smoking risk assessment performed?: Yes Alcohol Intake: never Drug use: Never Substance use type: does not use Household members: none Housing: other Communication Needs: Corrective Lenses current occupation: works at [employer] Pets and animals: Yes Pets and animals: cat(s) What is your relationship status?: How often do you talk on the phone with friends or family?: once per week Panel score (0-1 are the most socially isolated patients): 0 What type of physical activity do you participate in: other Details: physically active at work Seatbelt use: always Drive intox or ride w/intox 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 Head: Normocephalic, atraumatic Ear, nose, mouth, throat: Grossly normal inspection. Normal voice, handling secretions normally. Neck: Trachea midline. Cardiovascular: Well-perfused distal extremities. Respiratory: Nonlabored respiration. Gastrointestinal: Soft nontender nondistended and with yeni dressing in place and drain in place. Minimal dried serosanguineous drainage at site of drain Musculoskeletal: No edema. Moving all 4 extremities spontaneously. Skin: Normal for age and race, grossly normal temperature and turgor. No acute rash. Neurologic: Alert and appropriate, no apparent acute deficits. Psychiatric: Mood and manner are appropriate. Grooming and personal hygiene are appropriate. Course Vital Signs Vital signs: Vital Signs Temperature 36.6 C 11/03/22 07:12 Pulse 89 11/03/22 07:12 Respiratory Rate 15 11/03/22 07:12 Blood Pressure 137/82 11/03/22 07:12 Pulse Oximetry 97 11/03/22 07:12 Temperature 36.6 C 11/03/22 07:12 Temperature Source Tympanic 11/03/22 07:12 Pulse 89 11/03/22 07:12 Respiratory Rate 15 11/03/22 07:54 Respiratory Effort Normal 11/03/22 07:54 Respiratory Depth Normal 11/03/22 07:54 Respiratory Pattern Normal 11/03/22 07:54 Blood Pressure 137/82 11/03/22 07:12 Blood Pressure Position Sitting 11/03/22 07:12 Pulse Oximetry 97 11/03/22 07:12 Oxygen Delivery Method Room Air 11/03/22 07:12 Oxygen Flow Rate 0 11/03/22 07:12 Pain Level 0 11/03/22 07:12
[2022-11-03 08:56] VITALS: BP 136/86; PULSE 72; RESP 15; O2SAT 96
== END 2022-11-03 09:10 | disposition home or self-care (01) ==
PROVIDERS: Emergency Provider Emergency Medicine; PCP Nurse Practitioner Adult Health
DX: T85.590A Other mechanical complication of bile duct prosthesis, initial encounter; I48.91 Unspecified atrial fibrillation; Z79.01 Long term (current) use of anticoagulants
CPT/HCPCS: 99281; 99283

== ENCOUNTER → 2022-11-10 13:02 | Outpatient (BNVA) | payer MEDICARE, SELFPAY | PROVIDERS: PCP Nurse Practitioner Adult Health; Referring Provider Nurse Practitioner Adult Health; Visit Provider Surgery | DX: Z48.815 Encounter for surgical aftercare following surgery on the digestive system (principal); Z90.49 Acquired absence of other specified parts of digestive tract; M79.89 Other specified soft tissue disorders ==

== ENCOUNTER → 2022-11-19 13:32 | Outpatient (BNVA) | payer MEDICARE, SELFPAY | PROVIDERS: PCP Nurse Practitioner Adult Health; Referring Provider Nurse Practitioner Adult Health; Visit Provider Surgery | DX: Z48.815 Encounter for surgical aftercare following surgery on the digestive system (principal); Z90.49 Acquired absence of other specified parts of digestive tract ==

== ENCOUNTER 2023-01-14 00:38 | Outpatient (CLI) | payer MEDICARE, SELFPAY ==
--- NOTE | 2023-01-14 07:15 | DI.US_ITS ---
Exam(s) US THYROID EXAM: US THYROID CLINICAL HISTORY: F/U abn study 10/2022 R thyroid lobe 1.5cm nodule,e04.1. TECHNIQUE: Ultrasound thyroid performed using standard protocol. COMPARISON: CT CT CHEST PE ABD PELVIS W from 10/22/2022 FINDINGS: ISTHMUS: 5.6 mm RIGHT LOBE: Size: 5.3 x 2.9 x 2.5 cm Echogenicity: Normal. Vascularity: Normal. Nodules: There is a 1.6 x 1.1 x 1.5 cm solid isoechoic nodule in the midpole. No echogenic foci is s een. It has well-circumscribed margins. It is consistent with a TI rads level 3 nodule. Due to its size, follow-up is recommended. There is a 1.5 x 1.1 x 1.2 cm mixed cystic and solid isoechoic nodu le. No echogenic foci are seen. It is consistent with a TI rads level 2 nodule. No follow-up is re commended. LEFT LOBE: Size: 4.3 x 1.2 x 1.5 cm Echogenicity: Normal. Vascularity: Normal. Nodules: No suspicious nodules requiring follow-up or FNA are identified. OTHER FINDINGS: None. IMPRESSION: Thyroid nodules. There is a TI rads level 3 nodule in the right lobe measuring 1.6 x 1.1 x 1.5 cm. Due to its size, follow-up is recommended. DATA REPOSITORY:
== END 2023-01-14 00:58 ==
LOC: DI 00:39
PROVIDERS: PCP Nurse Practitioner Adult Health; Visit Provider Nurse Practitioner Adult Health
DX: E04.1 Nontoxic single thyroid nodule (principal)
CPT/HCPCS: 76536

== ENCOUNTER 2023-03-05 01:46 | Outpatient (CLI) | payer MEDICARE, SELFPAY ==
[2023-03-05 11:49] LABS: TSH (W/Ref FT4) 3.99 uIU/mL (0.36-3.74)
[2023-03-05 12:09] LABS: FREE T4 1.01 ng/dL (0.76-1.46)
== END 2023-03-05 01:47 | disposition home or self-care (01) ==
LOC: LBO 02:17
PROVIDERS: PCP Nurse Practitioner Adult Health; Visit Provider Registered Nurse Maternal Newborn
DX: E04.1 Nontoxic single thyroid nodule (principal); R79.89 Other specified abnormal findings of blood chemistry
CPT/HCPCS: 36415; 84439; 84443

== ENCOUNTER 2023-03-12 14:37 | Emergency (ER) | payer MEDICARE, SELFPAY ==
[2023-03-12 14:42] VITALS: BP 164/87; PULSE 105; RESP 18; TEMP 36.3; O2SAT 95
--- NOTE | 2023-03-12 15:11 | W.ED.GENAD ---
Discharge Plan Disposition Patient Disposition: Home Condition: Improving Discharge Details Chief Complaint: Epistaxis Clinical Impression: Epistaxis Primary Care Provider: Tiffany Patino ED Provider: Edy White Home Meds and New Rx's Prescriptions: No Action Complex B-100 Tablet Extended Release 1 tab PO DAILY nystatin 100,000 unit/gram powder 1 applic topical BID Qty: 60 0RF Rx Instructions: for 10 days multivitamin [Daily Multi-Vitamin] 1 EACH tablet 1 ea PO DAILY citalopram 20 mg tablet 20 mg PO QHS Qty: 90 3RF valsartan-hydrochlorothiazide 160-25 mg tablet 1 tab PO DAILY Qty: 90 3RF Rx Instructions: for high blood pressure apixaban 5 mg tablet 5 mg PO BID Qty: 180 3RF diltiazem HCl 360 mg capsule,extended release 24hr 360 mg PO DAILY Qty: 90 3RF Discharge Instructions Instructions: Nosebleed (ED) Stand Alone Forms: Work Release Medical Decision Making 73-year-old female history of A-fib on apixaban presents with atraumatic epistaxis in the setting of blowing her nose proximally 1 hour ago, largely controlled with gauze and anterior clamping, no posterior oropharyngeal bleeding, no hypotension or respiratory distress. No nausea no vomiting. Will reassess likely anterior bleed in several minutes, will administer Afrin and localized TXA atomized. If resolved home with care instructions. Otherwise will pack with Rhino Rocket 15: 35 Adomized TXA and Afrin instilled in the bilateral naris. Clamp reapplied. Will reassess in 20 to 30 minutes. 16: 43 epistaxis has resolved. Home care instructions and return precautions given HPI General Date/Time Provider Initiated Documentation: 03/12/23 14:53. HPI Narrative: 73-year-old female history of A-fib on apixaban presents with epistaxis after blowing her nose approximately 1 hour ago. Resolving with pressure. Was running down the back of her throat now with stopping. Denies headache nausea vomiting shortness of breath or trouble breathing. Has had epistaxis in the past has never required packing or cauterization Related Data Home Medications Medication Instructions Recorded Confirmed multivitamin (Daily Multi-Vitamin 1 ea PO DAILY 01/03/13 03/12/23 tablet) citalopram 20 mg tablet 20 mg PO QHS #90 tabs 09/16/22 03/12/23 valsartan 160 1 tab PO DAILY HTN #90 tabs 09/16/22 03/12/23 mg-hydrochlorothiazide 25 mg tablet apixaban 5 mg tablet 5 mg PO BID blood thinner #180 tabs 09/21/22 03/12/23 diltiazem HCl 360 mg 360 mg PO DAILY #90 caps 09/24/22 03/12/23 capsule,extended release 24 hr vitamin B complex (Complex B-100 1 tab PO DAILY 10/01/22 03/12/23 tablet,extended release) nystatin 100,000 unit/gram topical 1 applic topical BID #60 grams 01/25/23 03/12/23 powder Previous Rx's Medication Instructions Recorded citalopram 20 mg tablet 20 mg PO QHS #90 tabs 09/16/22 valsartan 160 1 tab PO DAILY HTN #90 tabs 09/16/22 mg-hydrochlorothiazide 25 mg tablet apixaban 5 mg tablet 5 mg PO BID blood thinner #180 tabs 09/21/22 diltiazem HCl 360 mg 360 mg PO DAILY #90 caps 09/24/22 capsule,extended release 24 hr nystatin 100,000 unit/gram topical 1 applic topical BID #60 grams 01/25/23 powder Allergies Allergy/AdvReac Type Severity Reaction Status Date / Time phenobarbital Allergy Intermediate rash Verified 02/25/23 08:49 General Stated Complaint: Epistaxis DESTINEE: 4 Review of Systems Narrative: Review of Systems Constitutional: negative Eyes: negative ENT: Epistaxis Cardiovascular: negative Respiratory: negative Gastrointestinal: negative : negative Musculoskeletal: negative Skin: negative Neurologic: negative Psych: negative PFSH All Active Problems (Updated 03/12/23 @ 16:44 by Edy White MD) Epistaxis (Acute) Subclinical hypothyroidism (Chronic ~2016) Thyroid nodule (Acute) Aortic valve stenosis (Chronic) Heart murmur (Acute) 12/04/22 [facility] [place]: Moderate murmur. 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 Atrial fibrillation (Chronic 05/19/12) Onset 2011, Holter 12/2011 AFib throughout, ECHO 12/2008 LVEF 65%+LVH Permanent, clinically silent Managed with rate control ASA 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 Jayce Medical History Acute cholecystitis due to biliary calculus Advanced directive placed in chart this admission (02/15/18) Afib Atypical chest pain Back pain Benign paroxysmal positional vertigo (09/17/11) Corns and callosities Depression Diverticulosis Diverticulosis of colon (02/15/18) Essential hypertension (09/17/11) goal BP 140/90 Fatty infiltration of liver (02/15/18) Gallstones Hyperlipidemia Hypertension Impaired ambulation Memory loss Morbid obesity Nail dystrophy Pain and swelling of right lower extremity Pain, foot Pneumonia of left lower lobe due to infectious organism (12/09/16) Right shoulder pain Seizure disorder (09/17/11) Snoring Vitreomacular traction syndrome of both eyes Surgical History Brain Surgery, 05/11/1993 Neurosurgery [facility] [place], frontal lobectomy s/p encephalitis with SZ S/P cholecystectomy (~10/2022) open NOEMY/BSO, 2003 Excessive bleeding Family History Mother Diabetes Essential hypertension Heart disease Stroke Father Heart disease Stroke Social History Smoking/Tobacco Use Status: Never Smoking risk assessment performed?: Yes Alcohol Intake: never Drug use: Never Substance use type: does not use Household members: none Housing: other Communication Needs: Corrective Lenses current occupation: works at [employer] Pets and animals: Yes Pets and animals: cat(s) What is your relationship status?: How often do you talk on the phone with friends or family?: once per week Panel score (0-1 are the most socially isolated patients): 0 What type of physical activity do you participate in: other Details: physically active at work Seatbelt use: always Drive intox 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 Working smoke detector in home: Yes Fire extinguisher in home: Yes Carbon monox detector in home: Yes Do you feel safe at home: Yes Do you feel safe in your relationship?: Yes Exam Narrative Exam Narrative: Physical Examination General: alert, awake, cooperative, resting comfortably, no acute distress HEENT: normocephalic, atraumatic; PERRL, EOM intact, conjunctiva normal; no nasal discharge; moist mucous membranes, oral and pharyngeal mucosa normal, tolerating secretions; no epistaxis noted in posterior oropharynx, gauze and nasal clamp intact not saturating because Neck: supple, trachea midline; full ROM Chest: normal to inspection Respiratory: normal respiratory effort, speaking in full sentences Skin: no lesions, rashes or trauma appreciated Neuro: AAOx3, normal speech, moving all extremities Psych: Appropriate mood and affect Course Vital Signs Vital signs: Vital Signs Temperature 36.3 C L 03/12/23 14:42 Pulse 105 H 03/12/23 14:42 Respiratory Rate 18 03/12/23 14:42 Blood Pressure 164/87 H 03/12/23 14:42 Pulse Oximetry 95 03/12/23 14:42 Temperature 36.3 C L 03/12/23 14:42 Pulse 105 H 03/12/23 14:42 Respiratory Rate 18 03/12/23 14:42 Respiratory Effort Normal, Non-Labored 03/12/23 14:42 Blood Pressure 164/87 H 03/12/23 14:42 Blood Pressure Position Supine 03/12/23 14:42 Pulse Oximetry 95 03/12/23 14:42 Oxygen Delivery Method Room Air 03/12/23 14:42 Oxygen Flow Rate 0 03/12/23 14:42
[2023-03-12] MEDS: Tranexamic Acid 1,000 MG/10 ML VIAL 500 MG NS (15:31)
[2023-03-12] MEDS: Oxymetazolone 0.05% SPRAY 15 ML BTL NS (15:31)
[2023-03-12 16:52] VITALS: PULSE 71; RESP 18; O2SAT 96
== END 2023-03-12 16:51 | disposition home or self-care (01) ==
PROVIDERS: Emergency Provider Emergency Medicine; PCP Nurse Practitioner Adult Health
DX: R04.0 Epistaxis (principal)
CPT/HCPCS: 99281; 99282

== ENCOUNTER 2023-03-14 08:27 | Emergency (ER) | payer MEDICARE, SELFPAY ==
[2023-03-14 08:36] VITALS: BP 173/84; PULSE 94; RESP 18; TEMP 36.5; O2SAT 96
[2023-03-14] MEDS: Silver Nitrate Stick 1 EACH TP (08:59)
[2023-03-14 09:09] LABS: Absolute Basophil Count 0.05 10^3/uL (0.0-0.2); Absolute Eosinophil Count 0.21 10^3/uL (0.0-0.7); Absolute Lymphocyte Count 1.81 10^3/uL (1.2-3.4); Absolute Monocyte Count 0.68 10^3/uL (0.1-0.8); Absolute Neutrophil Count 3.43 10^3/uL (1.2-6.7); Basophils % 0.8; Eosinophils % 3.4; HCT 40.9 % (36.0-46.0); HGB 13.3 g/dL (11.2-15.7); Lymphocytes % 29.3; MCH 29.6 pg (27.0-33.0); MCHC 32.5 % (32.0-36.0); MCV 91 fL (80-95); MPV 9.1 fL (8.0-11.0); Neutrophils % 55.5; Platelet Count 207 10^3/uL (130-400); RBC 4.49 10^6/uL (3.93-5.22); RDW 13.9 % (11.7-14.6); RDW-SD 46.5 fL; WBC 6.18 10^3/uL (4.4-10.8)
[2023-03-14 09:19] LABS: Anion Gap 6.6 mmol/L (3-11); BUN 16 mg/dL (7-18); CO2 32.4 mmol/L (21.0-32.0); CREATININE 0.7 mg/dL (0.55-1.02); Calcium 8.9 mg/dL (8.5-10.1); Chloride 106 mmol/L (98-107); Estimated GFR 92.41 (mL/min/1.73m2); Glucose 102 mg/dL (74-106); Potassium 4.1 mmol/L (3.5-5.1); Sodium 145 mmol/L (136-145)
--- NOTE | 2023-03-14 09:49 | W.ED.GENAD ---
Discharge Plan Disposition Patient Disposition: Home Discharge Details Clinical Impression: Acute anterior epistaxis, Chronic anticoagulation Primary Care Provider: Tiffany Patino ED Provider: Ebonie Meneses Home Meds and New Rx's Prescriptions: New doxycycline hyclate 100 mg capsule 100 mg PO BID Qty: 10 0RF Continued Complex B-100 Tablet Extended Release 1 tab PO DAILY nystatin 100,000 unit/gram powder 1 applic topical BID Qty: 60 0RF Rx Instructions: for 10 days multivitamin [Daily Multi-Vitamin] 1 EACH tablet 1 ea PO DAILY citalopram 20 mg tablet 20 mg PO QHS Qty: 90 3RF valsartan-hydrochlorothiazide 160-25 mg tablet 1 tab PO DAILY Qty: 90 3RF Rx Instructions: for high blood pressure apixaban 5 mg tablet 5 mg PO BID Qty: 180 3RF diltiazem HCl 360 mg capsule,extended release 24hr 360 mg PO DAILY Qty: 90 3RF Discharge Instructions Instructions: Nosebleed (ED) Additional Instructions: I packing in your nose will need to be removed in 4 days, you may come to the emergency department or follow-up with your primary care physician if they are willing to remove it Take the antibiotic only while the packing is in place You also need to follow-up with ENT as you may need cauterization of a small bleeding area in the anterior portion of your nose Apply bacitracin to your nostrils twice daily Return earlier should you have new or worsening complaints including persistent bleeding, of note you may have some oozing from your nostrils and this can be normal. Stand Alone Forms: Work Release Referrals: Tiffany Patino NP [Primary Care Provider] - Anthony Sharpe MD [ [facility] STAFF PHYSICIAN] - Medical Decision Making Patient presents with recurrent epistaxis, Rhino Rocket was placed in the presence of Eliquis and recurrent epistaxis, she is referred to ENT secondary to need for likely cauterization, my cauterization in the emergency department was unsuccessful She is hemodynamically stable, her CBC is reassuring Rhino Rocket is placed and she is encouraged to keep it in place for 4 days She is placed on doxycycline to prevent sinusitis Discharged home in stable condition with coagulation achieved Return precautions reviewed and patient expressed understanding Medical Records Medical records reviewed: Yes I reviewed the patient's medical records. Lab Data Lab results reviewed: Yes I reviewed the patient's lab results. HPI General Date/Time Provider Initiated Documentation: 03/14/23 08:40. HPI Narrative: This 73-year-old female presents with report of epistaxis that started this morning but she however she has had recurrent events over the course of the past several months. She is reportedly been on Eliquis for the past several months and this is not changed for history of atrial fibrillation. She states she feels lightheaded. She states she has been bleeding for approximately 1 hour. She was evaluated earlier this week and had a nasal clamp and Afrin which resolved the bleeding and she was sent home at that time with bleeding controlled. Related Data Home Medications Medication Instructions Recorded Confirmed multivitamin (Daily Multi-Vitamin 1 ea PO DAILY 01/03/13 03/12/23 tablet) citalopram 20 mg tablet 20 mg PO QHS #90 tabs 09/16/22 03/12/23 valsartan 160 1 tab PO DAILY HTN #90 tabs 09/16/22 03/12/23 mg-hydrochlorothiazide 25 mg tablet apixaban 5 mg tablet 5 mg PO BID blood thinner #180 tabs 09/21/22 03/12/23 diltiazem HCl 360 mg 360 mg PO DAILY #90 caps 09/24/22 03/12/23 capsule,extended release 24 hr vitamin B complex (Complex B-100 1 tab PO DAILY 10/01/22 03/12/23 tablet,extended release) nystatin 100,000 unit/gram topical 1 applic topical BID #60 grams 01/25/23 03/12/23 powder doxycycline hyclate 100 mg capsule 100 mg PO BID #10 caps 03/14/23 Previous Rx's Medication Instructions Recorded citalopram 20 mg tablet 20 mg PO QHS #90 tabs 09/16/22 valsartan 160 1 tab PO DAILY HTN #90 tabs 09/16/22 mg-hydrochlorothiazide 25 mg tablet apixaban 5 mg tablet 5 mg PO BID blood thinner #180 tabs 09/21/22 diltiazem HCl 360 mg 360 mg PO DAILY #90 caps 09/24/22 capsule,extended release 24 hr nystatin 100,000 unit/gram topical 1 applic topical BID #60 grams 01/25/23 powder doxycycline hyclate 100 mg capsule 100 mg PO BID #10 caps 03/14/23 Allergies Allergy/AdvReac Type Severity Reaction Status Date / Time phenobarbital Allergy Intermediate rash Verified 02/25/23 08:49 General Stated Complaint: Epistaxis DESTINEE: 3 PFSH All Active Problems (Updated 03/14/23 @ 09:56 by YIFAN Edouard) Epistaxis (Acute) Acute anterior epistaxis (Acute) Chronic anticoagulation (Acute) Subclinical hypothyroidism (Chronic ~2016) Thyroid nodule (Acute) Aortic valve stenosis (Chronic) Heart murmur (Acute) 12/04/22 [facility] [place]: Moderate murmur. 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) OS 20/40 05/31/21 Snoring (Acute 02/02/13) Jayce ordered sleep consult 01/2013 Morbid obesity (Acute 02/02/13) 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 Atrial fibrillation (Chronic 05/19/12) Onset 2011, Holter 12/2011 AFib throughout, ECHO 12/2008 LVEF 65%+LVH Permanent, clinically silent Managed with rate control 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 Medical History Acute cholecystitis due to biliary calculus Advanced directive placed in chart this admission (02/15/18) Afib Atypical chest pain Back pain Benign paroxysmal positional vertigo (09/17/11) Corns and callosities Depression Diverticulosis Diverticulosis of colon (02/15/18) Essential hypertension (09/17/11) goal BP 140/90 Fatty infiltration of liver (02/15/18) Gallstones Hyperlipidemia Hypertension Impaired ambulation Memory loss Morbid obesity Nail dystrophy Pain and swelling of right lower extremity Pain, foot Pneumonia of left lower lobe due to infectious organism (12/09/16) Right shoulder pain Seizure disorder (09/17/11) Snoring Vitreomacular traction syndrome of both eyes Surgical History Brain Surgery, 05/11/1993 [place] [facility] [place] frontal lobectomy s/p encephalitis with SZ S/P cholecystectomy (~10/2022) open NOEMY/BSO, 2002 Excessive bleeding Family History Mother Diabetes Essential hypertension Heart disease Stroke Father Heart disease Stroke Social History Smoking/Tobacco Use Status: Never Smoking risk assessment performed?: Yes Alcohol Intake: never Drug use: Never Substance use type: does not use Household members: none Housing: other Communication Needs: Corrective Lenses current occupation: works at [employer] Pets and animals: Yes Pets and animals: cat(s) What is your relationship status?: How often do you talk on the phone with friends or family?: once per week Panel score (0-1 are the most socially isolated patients): 0 What type of physical activity do you participate in: other Details: physically active at work Seatbelt use: always Drive intox 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 Working smoke detector in home: Yes Fire extinguisher in home: Yes Carbon monox detector in home: Yes Do you feel safe at home: Yes Do you feel safe in your relationship?: Yes Exam Narrative Exam Narrative: Patient is alert and oriented, well in appearance, ambulatory with steady gait, right anterior septum has a small arterial that is bleeding intermittent bleeding, no bleeding noted from left nare Respiratory rate within normal limits, cardiac rate rhythm regular, no pallor, fully alert and oriented Course Vital Signs Vital signs: Vital Signs Temperature 36.5 C 03/14/23 08:36 Pulse 94 H 03/14/23 08:36 Respiratory Rate 18 03/14/23 08:36 Blood Pressure 173/84 H 03/14/23 08:36 Pulse Oximetry 96 03/14/23 08:36 Temperature 36.5 C 03/14/23 08:36 Temperature Source Oral 03/14/23 08:36 Pulse 94 H 03/14/23 08:36 Respiratory Rate 18 03/14/23 08:36 Respiratory Effort Normal, Non-Labored 03/14/23 08:36 Blood Pressure 173/84 H 03/14/23 08:36 Blood Pressure Position Sitting 03/14/23 08:36 Pulse Oximetry 96 03/14/23 08:36 Oxygen Delivery Method Room Air 03/14/23 08:36 Oxygen Flow Rate 0 03/14/23 08:36 Pain Level 0 03/14/23 08:36 Lab/Test Results Lab/Test Results: Laboratory Tests Range/Units 03/14/23 03/14/23 09:05 09:05 WBC (4.4-10.8) 10^3/uL 6.18 RBC (3.93-5.22) 10^6/uL 4.49 Hgb (11.2-15.7) g/dL 13.3 Hct (36.0-46.0) % 40.9 MCV (80-95) fL 91 MCH (27.0-33.0) pg 29.6 MCHC (32.0-36.0) % 32.5 RDW (11.7-14.6) % 13.9 Plt Count (130-400) 10^3/uL 207 MPV (8.0-11.0) fL 9.1 Immature Gran % 0.0 Neutrophils % 55.5 Lymphocytes % 29.3 Monocytes % 11.0 Eosinophils % 3.4 Basophils % 0.8 Nucleated RBC % (0.0-0.3) % 0.0 Absolute Neutrophils (1.2-6.7) 10^3/uL 3.43 Absolute Lymphocytes (1.2-3.4) 10^3/uL 1.81 Absolute Monocytes (0.1-0.8) 10^3/uL 0.68 Absolute Eosinophils (0.0-0.7) 10^3/uL 0.21 Absolute Basophils (0.0-0.2) 10^3/uL 0.05 Sodium (136-145) mmol/L 145 Potassium (3.5-5.1) mmol/L 4.1 Chloride (98-107) mmol/L 106 Carbon Dioxide (21.0-32.0) mmol/L 32.4 H Anion Gap (3-11) mmol/L 6.6 BUN (7-18) mg/dL 16 Creatinine (0.55-1.02) mg/dL 0.7 Est GFR (CKD-EPI 2020) (mL/min/1.73m2) 92.41 Glucose (74-106) mg/dL 102 Calcium (8.5-10.1) mg/dL 8.9 Procedures Epistaxis Control Time Out Performed: Yes Nostril: right Nose Prepped With: phenylephrine Direct Inspection: yes Clots Removed by: blowing nose Cautery Used: silver nitrate Device Inserted: nasal tampon Device Size: 4 Patient Tolerated Procedure: well
[2023-03-14 09:50] VITALS: BP 154/82; PULSE 80; RESP 18; TEMP 36.5; O2SAT 99
[2023-03-14] MEDS: Oxymetazolone 0.05% SPRAY 15 ML BTL NS (09:50)
[2023-03-14] MEDS: Tranexamic Acid 1,000 MG/10 ML VIAL 500 MG NS (09:50)
--- NOTE | 2023-03-14 09:55 | NUR.NOTE ---
Referral made to ENT for cauterization for current nose bleeds, patient has rhino rocket. Placed the referral made by Ebonie Meneses in care management's box for f/u assistance.Nursing Note:
== END 2023-03-14 10:04 | disposition home or self-care (01) ==
PROVIDERS: Emergency Provider Physician Assistant; PCP Nurse Practitioner Adult Health
DX: R04.0 Epistaxis (principal); Z79.01 Long term (current) use of anticoagulants
CPT/HCPCS: 30901; 36415; 80048; 85025

== ENCOUNTER 2023-10-18 05:01 | Outpatient (CLI) | payer MEDICARE, SELFPAY ==
[2023-10-18 10:22] LABS: Anion Gap 8.4 mmol/L (3-11); BUN 11 mg/dL (7-18); CO2 32.6 mmol/L (21.0-32.0); CREATININE 0.7 mg/dL (0.55-1.02); Calcium 9.3 mg/dL (8.5-10.1); Calculated LDL 112 mg/dL (<100); Chloride 103 mmol/L (98-107); Cholesterol 190 mg/dL (<200); Estimated GFR 92.41 (mL/min/1.73m2); Glucose 95 mg/dL (74-106); HDL Cholesterol 66 mg/dL (40-60); Potassium 3.6 mmol/L (3.5-5.1); Sodium 144 mmol/L (136-145); TSH (W/Ref FT4) 6.81 uIU/mL (0.36-3.74); Triglyceride 63 mg/dL (<150)
[2023-10-18 11:29] LABS: Hemoglobin A1C 5.7 % (<5.7)
== END 2023-10-18 05:02 | disposition home or self-care (01) ==
LOC: LBO 05:01
PROVIDERS: Absent Provider Nurse Practitioner Adult Health; PCP Nurse Practitioner Adult Health; Referring Provider Nurse Practitioner Adult Health; Visit Provider Nurse Practitioner Adult Health
DX: R73.03 Prediabetes (principal); E78.00 Pure hypercholesterolemia, unspecified; I71.21 Aneurysm of the ascending aorta, without rupture
CPT/HCPCS: 36415; 80048; 80061; 83036; 84439; 84443

== ENCOUNTER → 2023-10-25 11:29 | Outpatient (BNVA) | payer MEDICARE, SELFPAY | PROVIDERS: PCP Nurse Practitioner Adult Health; Referring Provider Nurse Practitioner Adult Health; Visit Provider Podiatrist | DX: L60.3 Nail dystrophy (principal); B35.1 Tinea unguium; Z92.29 Personal history of other drug therapy; I87.2 Venous insufficiency (chronic) (peripheral); I73.9 Peripheral vascular disease, unspecified | CPT/HCPCS: 11721 ==

== ENCOUNTER → 2024-01-19 01:44 | Outpatient (CLI) | payer MEDICARE, SELFPAY ==
--- NOTE | 2024-01-19 08:00 | DI.US_ITS ---
Exam(s) US THYROID EXAM: US THYROID CLINICAL HISTORY: right TR 3 thryoid nodule, 1 year follow up,e04.1. TECHNIQUE: Ultrasound thyroid performed using standard protocol. COMPARISON: CT CT CHEST PE ABD PELVIS W from 10/22/2022 US POCUS EXAM from 10/28/2022 US US THYROID from 01/14/2023 FINDINGS: ISTHMUS: 6 mm RIGHT LOBE: Size: 5.0 x 2.6 x 2.5 cm Echogenicity: Extremely heterogeneous. Vascularity: Normal. Nodules: Nodule 1. Mid to lower pole 1.8 x 1.2 x 1.5 cm, significantly changed from prior. Solid, i soechoic, smoothly marginated, TR 3. Nodule 2: Mid to lower pole 1.4 by 1.0 x 1.1 cm, stable in size from prior. Mixed cystic and solid, isoechoic, lobulated margins, TR 4 Nodule 3: 1.5 x 0.8 x 1.2 cm mixed cystic and solid, isoechoic, lobulated margins, TR 4. This nodule appears to have increased in size. It was considered spongiform on the prior exam. LEFT LOBE: Size: 4.3 x 1.4 x 1.4 cm Echogenicity: Extremely heterogeneous. Vascularity: Normal. Nodules: Multiple small none nodules, less than 1 cm. OTHER FINDINGS: No adenopathy IMPRESSION: Multinodular thyroid gland. The largest 2 nodules are unchanged. There is a 3rd nodule which may hickman ve increased in size. FNA or follow-up could be considered given borderline size at 1.5 cm. DATA REPOSITORY:
== END ==
PROVIDERS: PCP Nurse Practitioner Adult Health; Visit Provider Registered Nurse Maternal Newborn
DX: R42 Dizziness and giddiness (principal); I71.20 Thoracic aortic aneurysm, without rupture, unspecified
CPT/HCPCS: 76536

== ENCOUNTER 2024-01-19 15:37 | Emergency (ER) | payer MEDICARE, SELFPAY ==
[2024-01-19] VITALS (45 sets, daily range): BP systolic 134–199; BP diastolic 54–160; PULSE 56–98; RESP 11–28; TEMP 36.5; O2SAT 94–98
--- NOTE | 2024-01-19 15:30 | RT.EKG_ITS ---
APPROVED REPORT Exam: Resting ECG Reason for Exam: Chest Pain Patient Location: E HR:88 bpm ECG Measurements Heart Rate 88 AXIS DE [id number] P [id number] QRSd 87 QRS 21 QT 373 T 50 QTc 452 Conclusion Atrial fibrillation...V-rate 75-102, irreg A-activity narrow complex irregular rhtyhm, consider afib v poor baseline sinus with respiratory variation; non ischemic
--- NOTE | 2024-01-19 15:32 | NUR.NOTE ---
Referral given to Care Managers for [facility] [place] Colon/Rectal Surgeon follow up due to prolapsed Colon as soon as possible
--- NOTE | 2024-01-19 15:35 | ED.GENADUL_ITS ---
Discharge Plan Disposition Patient Disposition: Home Condition: Stable Discharge Details Clinical Impression: Dizziness, Chest pain Primary Care Provider: Tiffany Patino ED Provider: Ann Marie Luna Home Meds and New Rx's Prescriptions: New meclizine 12.5 mg tablet 12.5 mg PO TID PRN (Reason: dizziness) Qty: 20 0RF Rx Instructions: Take one tablet 3 times daily as needed for dizziness Continued nystatin 100,000 unit/gram powder 1 applic topical BID Qty: 60 0RF Rx Instructions: for 10 days vitamin B complex [B Complex-Vitamin B12] Tablet 2 tab PO DAILY Rx Instructions: Pt takes 2 gummies a day-- ascorbate calcium (vitamin C) 500 mg tablet 500 mg PO DAILY valsartan-hydrochlorothiazide 320-25 mg tablet 1 tab PO DAILY Qty: 90 3RF Rx Instructions: Dose increase 07/28/23 for goal BP <140/90 apixaban 5 mg tablet 5 mg PO BID Qty: 180 3RF citalopram 20 mg tablet 20 mg PO QHS Qty: 90 3RF diltiazem HCl 360 mg capsule,extended release 24hr 360 mg PO DAILY Qty: 90 3RF multivitamin [Daily Multi-Vitamin] 1 EACH tablet 1 ea PO DAILY Discharge Instructions Instructions: Chest Pain (ED), Dizziness (ED) Additional Instructions: PLease follow up with your PCP in the next 3 days. Take the meclizine as prescribed for dizziness. At this time no evidence of heart attack or acute stroke. Follow up with primary care provider in 3-5 days. Return to ED sooner if any worsening or concerns. Stand Alone Forms: Work Release Referrals: Tiffany Patino, DIRECTOR OF RELIGIOUS ACTIVITIES [Primary Care Provider] - 3 days HPI General Mode of arrival: EMS . Date/Time Provider Initiated Documentation: 01/19/24 15:48 . Limitations to Documentation: no limitations . Information obtained by: patient, EMS, RN notes reviewed and old records reviewed . HPI Narrative: 73-year-old female presents to the ER with a chief complaint dizziness, breathlessness and chest tightness after having an appointment with ENT for thyroid check. She presents via EMS. She does have a past medical history of atrial fibrillation, DVT, obesity, hypertension, aortic valve stenosis, she does have a previously dilated ascending aortic aneurysm and seizure disorder, hypothyroidism, venous insufficiency. She also complains of a mid frontal headache. She is on apixaban she did take her normal daily medications as prescribed. Denies any nausea vomiting diarrhea. Related Data Home Medications Medication Instructions Recorded Confirmed multivitamin (Daily Multi-Vitamin 1 ea PO DAILY 01/03/13 01/19/24 tablet) nystatin 100,000 unit/gram topical 1 applic topical BID #60 grams 01/25/23 01/19/24 powder apixaban 5 mg tablet 5 mg PO BID blood thinner #180 tabs 07/28/23 01/19/24 ascorbate calcium (vitamin C) 500 500 mg PO DAILY 07/28/23 01/19/24 mg tablet citalopram 20 mg tablet 20 mg PO QHS #90 tabs 07/28/23 01/19/24 diltiazem HCl 360 mg 360 mg PO DAILY #90 caps 07/28/23 01/19/24 capsule,extended release 24 hr valsartan 320 1 tab PO DAILY #90 tabs 07/28/23 01/19/24 mg-hydrochlorothiazide 25 mg tablet vitamin B complex (B 2 tab PO DAILY 07/28/23 01/19/24 Complex-Vitamin B12 tablet) meclizine 12.5 mg tablet 12.5 mg PO TID PRN dizziness #20 01/19/24 tabs Previous Rx's Medication Instructions Recorded nystatin 100,000 unit/gram topical 1 applic topical BID #60 grams 01/25/23 powder apixaban 5 mg tablet 5 mg PO BID blood thinner #180 tabs 07/28/23 citalopram 20 mg tablet 20 mg PO QHS #90 tabs 07/28/23 diltiazem HCl 360 mg 360 mg PO DAILY #90 caps 07/28/23 capsule,extended release 24 hr valsartan 320 1 tab PO DAILY #90 tabs 07/28/23 mg-hydrochlorothiazide 25 mg tablet meclizine 12.5 mg tablet 12.5 mg PO TID PRN dizziness #20 01/19/24 tabs Allergies Allergy/AdvReac Type Severity Reaction Status Date / Time phenobarbital Allergy Intermediate rash Verified 01/19/24 15:41 General DESTINEE: 3 Review of Systems All systems reviewed & are unremarkable except as noted in HPI and below Constitutional Constitutional: Reports as per HPI and Reports headache(s) ENT Ears, Nose, Mouth, and Throat: Reports dizziness and Reports headache(s) Cardiovascular Cardiovascular: Reports chest pain and Reports dyspnea on exertion Respiratory Respiratory: Reports dyspnea on exertion Neurologic Neurologic: Reports dizziness and Reports headache(s) Exam Narrative Exam Narrative: Constitutional: Alert and oriented x3. Appears stated age. Obese body habitus. Head: Normocephalic, no trauma. Eyes: Pupils PERRL, Red reflex noted, EOM's intact. Eyelids symmetrical without lesions, discharge, or swelling. ENT: Bilateral TM's WNL, External ear normal to inspection, no mastoid TTP, swelling, or erythema, Nasal turbinates WNL, no nasal discharge. Normal dentition, Posterior pharynx WNL, no exudate. Chest: RRR, Normal S1, S2, distal pulses intact. Resp: Lungs clear to auscultation bilaterally, no wheezes, rales, or rhonchi. Abdomen: Soft, non-distended, Normoactive bowel sounds all 4 quads. Musculoskeletal: Unable to assess gait, moves all 4 extremities without difficulty. Skin: No suspicious rashes or lesions. Capillary refill less than 2 sec. Neurologic: Cranial nerves II-XII intact. Alert and oriented x 3. Motor: No deficits noted. Sensory: Intact bilaterally all 4 extremities. Hematologic/Lymphatic: No ecchymosis, no lymphadenopathy. Medical Decision Making 73-year-old female presents to the ER with a chief complaint dizziness, breathlessness and chest tightness after having an appointment with ENT for thyroid check. She presents via EMS. She does have a past medical history of atrial fibrillation, DVT, obesity, hypertension, aortic valve stenosis, she does have a previously dilated ascending aortic aneurysm and seizure disorder, hypothyroidism, venous insufficiency. She also complains of a mid frontal headache. She is on apixaban she did take her normal daily medications as prescribed. Denies any nausea vomiting diarrhea. Cardiac workup ordered including EKG, serial troponins, PT PTT, thyroid studies. Will consider head CT and CTA of chest to evaluate aorta. Patient is anticoagulated currently. Differential diagnosis includes but not limited to CAD, GA, PE, aortic aneurysm, CVA, pneumonia. EKG was reviewed by Dr. Kathleen Wallace ER attending, old EKG available for review. Labs show no leukocytosis, magnesium slightly low at 1.6 proBNP is elevated at 1600, TSH 3.96 Free T41.13 Previous TSH has been as high as 6.8, CTA chest abdomen pelvis shows no change in the aneurysm, no PE. CT shows right temporal encepholamalacia. Nothing acute. Awaiting Repeat Troponin. Repeat Trop WNL. Patient is currently on hydrochlorothiazide 25 mg tablets daily for a diuretic however I will refer to her primary care provider regarding this if the dose needs to be changed according to her BMP. On patient reevaluation meclizine has improved her symptoms. I did discuss her CT results and lab results with her and strict return instructions she verbalized understanding. Patient was ambulatory upon discharge from the department. This text was generated using Weij[employer] system, please disregard any oddities of phrase or misspellings. Medical Records Medical records reviewed: Yes I reviewed the patient's medical records. Imaging Data Radiologic Study: Imaging: CT Scan Radiologist's impression: COMPARISON: CT CHEST PE ABD PELVIS W 10/22/2022 10:31 PM FINDINGS: VASCULATURE: Pulmonary arteries: Normal. No pulmonary emboli. Aorta: There is an unchanged 4.8 cm ascending thoracic aortic aneurysm. No aortic dissection. Celiac trunk and mesenteric arteries: No occlusion or significant stenosis. Renal arteries: No occlusion or significant stenosis. Right iliac arteries: No occlusion or significant stenosis. Left iliac arteries: No occlusion or significant stenosis. CHEST: Lungs: Unremarkable. No consolidation. No masses. Pleural spaces: Unremarkable. No pneumothorax. No pleural effusion. Heart: Unremarkable. No cardiomegaly. No pericardial effusion. ABDOMEN AND PELVIS: Liver: No mass. Gallbladder and bile ducts: The gallbladder is surgically absent. Pancreas: Unremarkable. No mass. No ductal dilation. Spleen: Unremarkable. No splenomegaly. Adrenal glands: Unremarkable. No mass. Kidneys and ureters: There are multiple bilateral simple appearing renal cysts. No imaging follow-up re commended. Stomach and bowel: There is descending colonic diverticulosis. No bowel wall thickening or obstruction. Appendix: No evidence of appendicitis. Intraperitoneal space: Unremarkable. No free air. No significant fluid collection. Urinary bladder: Unremarkable. No mass. Reproductive: Unremarkable as visualized. Lymph nodes: Unremarkable. No enlarged lymph nodes. Bones/joints: There are degenerative changes in the lumbar spine. No acute fracture. Soft tissues: There is a small fat containing umbilical hernia. IMPRESSION: 1. Unchanged 4.8 cm ascending thoracic aortic aneurysm. 2. Descend ing colonic diverticulosis. Thank you for allowing us to participate in the care of your patient. Dictated and Authenticated by: Andrea Gastelum MD Radiologic Study #2: Imaging: CT Scan Radiologist's impression: COMPARISON: US THYROID 01/19/2024 1:18 PM FINDINGS: Brain: There is encephalomalacia in the right temporal lobe. No acute intracranial hemorrhage, midline shift or mass effect. No acute territorial infarction. Cerebral ventricles: No ventriculomegaly. Paranasal sinuses: Visualized sinuses are unremarkable. No fluid levels. Mastoid air cells: Visualized mastoid air cells are well aerated. Bones: The patient has undergone a right frontotemporal craniotomy. Soft tissues: Unremarkable. IMPRESSION: 1. No acute intracranial abnormality. 2. Right temporal lobe encephalomalacia. Thank you for allowing us to participate in the care of your patient. Dictated and Authenticated by: Andrea Stephens i, MD Lab Data Lab results reviewed: Yes I reviewed the patient's lab results. Labs: Laboratory Tests Range/Units 01/19/24 01/19/24 15:45 18:50 WBC (4.4-10.8) 10^3/uL 7.37 RBC (3.93-5.22) 10^6/uL 4.67 Hgb (11.2-15.7) g/dL 14.2 Hct (36.0-46.0) % 43.9 MCV (80-95) fL 94 MCH (27.0-33.0) pg 30.4 MCHC (32.0-36.0) % 32.3 RDW (11.7-14.6) % 13.8 Plt Count (130-400) 10^3/uL 219 MPV (8.0-11.0) fL 9.7 Immature Gran % % 0.1 Neutrophils % % 47.1 Lymphocytes % % 38.1 Monocytes % % 11.7 Eosinophils % % 2.6 Basophils % % 0.4 Nucleated RBC % (0.0-0.3) % 0.0 Absolute Neutrophils (1.2-6.7) 10^3/uL 3.47 Absolute Lymphocytes (1.2-3.4) 10^3/uL 2.81 Absolute Monocytes (0.1-0.8) 10^3/uL 0.86 H Absolute Eosinophils (0.0-0.7) 10^3/uL 0.19 Absolute Basophils (0.0-0.2) 10^3/uL 0.03 PT (9.1-11.1) sec 11.2 H INR (0.9-1.1) 1.1 APTT (23.6-32.8) sec 29.4 Sodium (136-145) mmol/L 142 Potassium (3.5-5.1) mmol/L 3.6 Chloride (98-107) mmol/L 102 Carbon Dioxide (21.0-32.0) mmol/L 32.0 Anion Gap (3-11) mmol/L 8.0 BUN (7-18) mg/dL 14 Creatinine (0.55-1.02) mg/dL 0.7 Est GFR (CKD-EPI 2020) (mL/min/1.73m2) 92.41 Glucose (74-106) mg/dL 107 H Calcium (8.5-10.1) mg/dL 8.8 Magnesium (1.8-2.4) mg/dL 1.6 L Total Bilirubin (0.2-1.0) mg/dL 0.5 AST (15-37) U/L 19 ALT (14-59) U/L 24 Alkaline Phosphatase (46-116) U/L 71 Troponin I (< or =60) ng/L < 50 < 50 NT-Pro-B Natriuret Pep (<300) pg/mL 1600 H Total Protein (6.4-8.2) g/dL 7.5 Albumin (3.4-5.0) g/dL 3.8 TSH (0.36-3.74) uIU/mL 3.96 H Free T4 (0.76-1.46) ng/dL 1.13 Quality:[facility] Health Related Social Needs: No Data to Display PFSH All Active Problems (Updated 01/19/24 @ 19:41 by Ann Marie Luna NP) Chest pain (Acute) Dizziness (Acute) Essential (primary) hypertension (Chronic) Balance problem (Acute) Ascending aorta dilation (Acute ~2022) [facility]--they recommend tighter BP control Venous insufficiency of both lower extremities (Acute) Subclinical hypothyroidism (Chronic ~2016) Aortic valve stenosis (Chronic) Heart murmur (Acute) 12/04/22 [facility] [place]: Moderate murmur. YIFAN Jhaveri Right thyroid nodule (Acute ~11/2022) ENT referral Left renal artery stenosis (Acute) [facility] [place] Thoracic ascending aortic aneurysm (Acute) [facility] Funk cardiac risk 10-20% in next 10 years (Chronic) 2020 12.9% Hypercholesterolemia (Chronic ~06/26/21) 2023 ASCVD score 11.5%-->not a candidate for a statin Chronic anticoagulation (Chronic) Depressive disorder (Chronic 09/17/11) W/LOBECTOMY Pre-diabetes (Chronic ~2016) Snoring (Acute 02/02/13) Jayce ordered sleep consult 01/2013 Morbid obesity (Acute 02/02/13) 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 Atrial fibrillation (Chronic 05/19/12) Onset 2011, Holter 12/2011 AFib throughout, ECHO 12/2008 LVEF 65%+LVH Permanent, clinically silent 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 [employer] Jayce Medical History Vitreomacular traction syndrome of both eyes (10/13/17) OS 20/05/31/21 Onychomycosis Anterior epistaxis (~03/2023) Acute cholecystitis due to biliary calculus Pain and swelling of right lower extremity Atypical chest pain Pain, foot Corns and callosities Impaired ambulation Right shoulder pain Benign paroxysmal positional vertigo (09/17/11) Pneumonia of left lower lobe due to infectious organism (12/09/16) Seizure disorder (09/17/11) Fatty infiltration of liver (02/15/18) Essential hypertension (09/17/11) goal BP 140/90 Diverticulosis of colon (02/15/18) Advanced directive placed in chart this admission (02/15/18) Hypertension Gallstones Snoring Hyperlipidemia Depression Vitreomacular traction syndrome of both eyes Afib Back pain Memory loss Morbid obesity Diverticulosis Surgical History S/P cholecystectomy (~10/2022) open NOEMY/BSO, 2002 Excessive bleeding Brain Surgery, 05/11/1993 [place] [facility] [place] s/p encephalitis with SZ Family History Mother Diabetes Essential hypertension Heart disease Stroke Father Heart disease Stroke Social History Smoking/Tobacco Use Status: Never Smoking risk assessment performed?: Yes Alcohol Intake: never Drug use: Never Substance use type: does not use Household members: none Housing: other Communication Needs: Corrective Lenses current occupation: works at [employer] Pets and animals: Yes Pets and animals: cat(s) What is your relationship status?: How often do you talk on the phone with friends or family?: once per week Panel score (0-1 are the most socially isolated patients): 0 What type of physical activity do you participate in: other Details: physically active at work Seatbelt use: always Drive intox or ride w/intox 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
--- NOTE | 2024-01-19 15:45 | DI.CT_ITS ---
Exam(s) CT HEAD WO EXAM: CT HEAD WO CLINICAL HISTORY: Dizziness, headache. TECHNIQUE: Imaging Protocol: Axial computed tomography images with coronal and sagittal reformatted images were created and reviewed COMPARISON: No exams were available for comparison FINDINGS: Ventricles and Extra axial spaces: Normal in size and morphology for the patient's age. Hemorrhage: None. Cerebral parenchyma: There are postsurgical changes with resection of portions of the right temporal lobe and a right temporal craniotomy. Subtle areas of decreased attenuation are seen in the white ma tter suggesting chronic microvascular ischemic disease. No acute mass effect is identified. Midline shift: None. Brainstem/Cerebellum: Normal. Calvarium: Normal. Visualized Paranasal sinuses/Mastoids: Clear. Soft Tissues: Unremarkable. IMPRESSION: No acute intracranial process. RADIATION DOSE DELIVERED: 838.12mGy.cm Total DLP DATA REPOSITORY: All CT scans at this facility are submitted to the National Radiology Data Registry (NRDR) Dose Index Registry (DIR) with the [employer] (ACR). RADIATION OPTIMIZATION: All CT scans at this facility use at least one of these dose optimization te chniques: automated exposure control; mA and/or kV adjustment per patient size (includes targeted exa ms where dose is matched to clinical indication); or iterative reconstruction.
--- NOTE | 2024-01-19 15:48 | DI.CT_ITS ---
Exam(s) CT THORAX ABD/PEL CTA EXAM: CT THORAX ABD/PEL CTA CLINICAL HISTORY: hx of aneurysm, chest tightness, dyspnea. TECHNIQUE: Imaging Protocol: Axial CT angiography was performed with multi-slice acquisition and m ulti-planar and/or 3D reconstructions. CONTRAST MATERIAL: Intravenous: Omnipaque 350 contrast volume:100 mL Oral: No COMPARISON: CT CT CHEST PE ABD PELVIS W from 10/22/2022 FINDINGS: CHEST: Tracheobronchial tree: Patent where visualized. Pulmonary parenchyma: No consolidation or dominant measurable mass. No architectural distortion. Pulmonary Arteries: The peripheral pulmonary arteries are inadequately opacified for evaluation of pu lmonary emboli. No large central pulmonary embolus is seen. Mediastinum and Maty: No dominant adenopathy or fluid collection. Visualized thyroid: There are few tiny hypodensities in the liver. No follow-up is recommended. Pleura: No effusion or pneumothorax. Heart: Cardiomegaly. No pericardial effusion. Aorta: The ascending thoracic aorta measures 4.9 x 4.6 cm. No evidence of dissection. Atherosclerot ic calcification is present. Soft Tissues: Unremarkable. Bones: Within normal limits for the patient's age. ABDOMEN AND PELVIS: Abdomen: Celiac axis/mesenteric arteries: No evidence of occlusion or significant stenosis. Mild atherosclero tic calcification is seen at the origin of the SMA. No significant stenosis is seen. Renal Arteries: Mild atherosclerotic calcification is seen at the origin of the right renal artery. No significant stenosis. There is dense calcification seen at the origin of the left renal artery wi th marked stenosis. Aorta: No evidence of occlusion or significant stenosis. No aneurysm or dissection. Atheroscleroti c calcification is present. Pelvis: Iliac Arteries: No evidence of occlusion or significant stenosis. Atherosclerotic calcification is present. No significant stenosis results. Common Femoral Arteries: No evidence of occlusion or significant stenosis. Atherosclerotic calcific ation is present. No significant stenosis results. ABDOMEN: Liver: The liver measures 18 cm long. No measurable mass. Gallbladder and Biliary Tract: Cholecystectomy. No significant biliary ductal dilatation. Pancreas: Normal density, no abnormal calcifications or inflammatory process. Spleen: Normal. Adrenals: No masses seen. Kidneys: There is mild left renal cortical atrophy. Right kidney shows a few small cysts. No radiod ense stones or obstructive uropathy. Bilateral renal cysts. The largest is in the inferior pole of t he left kidney and measures 10 x 8 cm. No follow-up is recommended. Bowel: Colonic diverticulosis without evidence of acute diverticulitis. There is a moderate amount o f stool throughout the colon. There is no evidence of bowel wall thickening or obstruction. No evid ence of appendicitis. Peritoneal Cavity: No ascites, collection or mesenteric inflammatory response. No free air. Lymph Nodes: Within normal limits. Bones: Within normal limits for the patient's age. Soft Tissues: There is a midline fat containing anterior abdominal wall hernia. PELVIS: Bladder: Symmetric distention, no gross wall thickening. Reproductive Organs: Status post hysterectomy. Lymph Nodes: Within normal limits. Bones: Within normal limits for the patient's age. IMPRESSION: 1. Thoracic aortic aneurysm measuring 4.9 x 4.6 cm. No evidence of dissection. 2. No acute pulmonary process. 3. Atherosclerosis of the abdominal aorta but no significant stenosis, aneurysm or dissection. 4. Marked atherosclerosis of the left renal artery with mild left renal cortical atrophy. 5. No acute abdominal or pelvic process. RADIATION DOSE DELIVERED: 1,291.46mGy.cm Total DLP DATA REPOSITORY: All CT scans at this facility are submitted to the National Radiology Data Registry (NRDR) Dose Index Registry (DIR) with the [employer] (ACR). RADIATION OPTIMIZATION: All CT scans at this facility use at least one of these dose optimization te chniques: automated exposure control; mA and/or kV adjustment per patient size (includes targeted exa ms where dose is matched to clinical indication); or iterative reconstruction.
[2024-01-19 15:54] LABS: Abs Immature Grans 0.01 10^3/uL (0.0-0.06); Absolute Basophil Count 0.03 10^3/uL (0.0-0.2); Absolute Eosinophil Count 0.19 10^3/uL (0.0-0.7); Absolute Lymphocyte Count 2.81 10^3/uL (1.2-3.4); Absolute Monocyte Count 0.86 10^3/uL (0.1-0.8); Absolute Neutrophil Count 3.47 10^3/uL (1.2-6.7); Basophils % 0.4 %; Eosinophils % 2.6 %; HCT 43.9 % (36.0-46.0); HGB 14.2 g/dL (11.2-15.7); Immature Grans % 0.1 %; Lymphocytes % 38.1 %; MCH 30.4 pg (27.0-33.0); MCHC 32.3 % (32.0-36.0); MCV 94 fL (80-95); MPV 9.7 fL (8.0-11.0); Monocytes % 11.7 %; Neutrophils % 47.1 %; Platelet Count 219 10^3/uL (130-400); RBC 4.67 10^6/uL (3.93-5.22); RDW 13.8 % (11.7-14.6); RDW-SD 47.1 fL; WBC 7.37 10^3/uL (4.4-10.8)
[2024-01-19 16:08] LABS: INR 1.1 (0.9-1.1); PTT Activated 29.4 sec (23.6-32.8); Prothrombin Time 11.2 sec (9.1-11.1)
[2024-01-19 16:19] LABS: ALT 24 U/L (14-59); AST 19 U/L (15-37); Albumin 3.8 g/dL (3.4-5.0); Alkaline Phosphatase 71 U/L (46-116); BUN 14 mg/dL (7-18); Bilirubin, Total 0.5 mg/dL (0.2-1.0); CREATININE 0.7 mg/dL (0.55-1.02); Calcium 8.8 mg/dL (8.5-10.1); Chloride 102 mmol/L (98-107); Estimated GFR 92.41 (mL/min/1.73m2); Glucose 107 mg/dL (74-106); Magnesium 1.6 mg/dL (1.8-2.4); NT-proBNP 1600 pg/mL (<300); Potassium 3.6 mmol/L (3.5-5.1); Sodium 142 mmol/L (136-145); TSH (W/Ref FT4) 3.96 uIU/mL (0.36-3.74); Total Protein 7.5 g/dL (6.4-8.2); Troponin I < 50 ng/L (< or =60)
[2024-01-19 16:47] LABS: FREE T4 1.13 ng/dL (0.76-1.46)
[2024-01-19] MEDS: Normal Saline - Diluent 50 ML VIAL IJ (17:07)
[2024-01-19] MEDS: Omnipaque 350 MG/ML 100 ML BTL IJ (17:07)
--- NOTE | 2024-01-19 17:40 | DI.VRAD_ITS ---
PROCEDURE INFORMATION: Exam: CTA Chest With Contrast CTA Abdomen and Pelvis With Contrast Exam date and time: 01/19/2024 5:07 PM Age: 73 years old Clinical indication: Other: HX of aneurysm, chest tightness, dyspnea TECHNIQUE: Imaging protocol: Computed tomographic angiography of the chest with contrast. Exam focused on the arteries. Computed tomographic angiography of the abdomen and pelvis with contrast. Exam focused on the arteries. 3D rendering (Not supervised by radiologist): MIP and/or 3D reconstructed images were created by the technologist. Radiation optimization: All CT scans at this facility use at least one of these dose optimization techniques: automated exposure control; mA and/or kV adjustment per patient size (includes targeted exams where dose is matched to clinical indication); or iterative reconstruction. Contrast material: OMNI 350; Contrast volume: 100 ml; Contrast route: INTRAVENOUS (IV); COMPARISON: CT CHEST PE ABD PELVIS W 10/22/2022 10:31 PM FINDINGS: VASCULATURE: Pulmonary arteries: Normal. No pulmonary emboli. Aorta: There is an unchanged 4.8 cm ascending thoracic aortic aneurysm. No aortic dissection. Celiac trunk and mesenteric arteries: No occlusion or significant stenosis. Renal arteries: No occlusion or significant stenosis. Right iliac arteries: No occlusion or significant stenosis. Left iliac arteries: No occlusion or significant stenosis. CHEST: Lungs: Unremarkable. No consolidation. No masses. Pleural spaces: Unremarkable. No pneumothorax. No pleural effusion. Heart: Unremarkable. No cardiomegaly. No pericardial effusion. ABDOMEN AND PELVIS: Liver: No mass. Gallbladder and bile ducts: The gallbladder is surgically absent. Pancreas: Unremarkable. No mass. No ductal dilation. Spleen: Unremarkable. No splenomegaly. Adrenal glands: Unremarkable. No mass. Kidneys and ureters: There are multiple bilateral simple appearing renal cysts. No imaging follow-up recommended. Stomach and bowel: There is descending colonic diverticulosis. No bowel wall thickening or obstruction. Appendix: No evidence of appendicitis. Intraperitoneal space: Unremarkable. No free air. No significant fluid collection. Urinary bladder: Unremarkable. No mass. Reproductive: Unremarkable as visualized. Lymph nodes: Unremarkable. No enlarged lymph nodes. Bones/joints: There are degenerative changes in the lumbar spine. No acute fracture. Soft tissues: There is a small fat containing umbilical hernia. IMPRESSION: 1. Unchanged 4.8 cm ascending thoracic aortic aneurysm. 2. Descending colonic diverticulosis. Dictated and Authenticated by: Andrea Gastelum MD. Ordering:SHELDON Jesus MD
--- NOTE | 2024-01-19 18:01 | DI.VRAD_ITS ---
PROCEDURE INFORMATION: Exam: CT Head Without Contrast Exam date and time: 01/19/2024 5:03 PM Age: 73 years old Clinical indication: Other: Dizziness, headache TECHNIQUE: Imaging protocol: Computed tomography of the head without contrast. COMPARISON: US THYROID 01/19/2024 1:18 PM FINDINGS: Brain: There is encephalomalacia in the right temporal lobe. No acute intracranial hemorrhage, midline shift or mass effect. No acute territorial infarction. Cerebral ventricles: No ventriculomegaly. Paranasal sinuses: Visualized sinuses are unremarkable. No fluid levels. Mastoid air cells: Visualized mastoid air cells are well aerated. Bones: The patient has undergone a right frontotemporal craniotomy. Soft tissues: Unremarkable. IMPRESSION: 1. No acute intracranial abnormality. 2. Right temporal lobe encephalomalacia. Dictated and Authenticated by: Andrea Gastelum MD. Ordering:SHELDON Jesus MD
[2024-01-19] MEDS: Meclizine 25 MG TAB PO (18:48)
[2024-01-19 19:20] LABS: Troponin I < 50 ng/L (< or =60)
== END 2024-01-19 19:58 | disposition home or self-care (01) ==
PROVIDERS: Emergency Provider Registered Nurse Emergency; PCP Nurse Practitioner Adult Health
DX: R42 Dizziness and giddiness (principal); R07.9 Chest pain, unspecified; I10 Essential (primary) hypertension; E78.5 Hyperlipidemia, unspecified; E03.9 Hypothyroidism, unspecified; I71.20 Thoracic aortic aneurysm, without rupture, unspecified; G93.89 Other specified disorders of brain; G40.909 Epilepsy, unspecified, not intractable, without status epilepticus; Z79.899 Other long term (current) drug therapy
CPT/HCPCS: 36415; 71275; 80053; 93005; 99285; 70450; 74174; 83735; 83880; 84439; 84443; 84484; 85025; 85610; 85730; 93010; 99284; J3490

== ENCOUNTER → 2024-02-15 12:59 | Outpatient (CLI) | payer MEDICARE, SELFPAY ==
--- NOTE | 2024-02-15 14:18 | DI.RAD_ITS ---
Exam(s) XR KNEE LT 3V AP,LAT,CAL EXAM: XR KNEE LT 3V AP,LAT,CAL CLINICAL HISTORY: M25.562 pain in left knee, no truma, worsened b/i knee and leg pain ?OA. TECHNIQUE: 2D digital imaging was performed of the left knee. Four images were obtained. AP, later al and PA tunnel views were obtained. COMPARISON: No priors for comparison. FINDINGS: BONES: No acute fracture is present. No bony destructive lesion is seen. JOINTS: There is marked joint space narrowing of the patellofemoral joint and mild joint space narrow ing seen in both the medial lateral femoral tibial joints. Osteophytes are seen involving all 3 join t compartments particularly the patellofemoral joint. There is a small joint effusion. No loose bod y. SOFT TISSUE: Vascular calcifications are present. IMPRESSION: Marked osteoarthritis of the knee particularly at the patellofemoral joint. DATA REPOSITORY: RADIATION DOSE DELIVERED:
--- NOTE | 2024-02-15 14:18 | DI.RAD_ITS ---
Exam(s) XR KNEE RT 3V AP,LAT,CAL EXAM: XR KNEE RT 3V AP,LAT,CAL CLINICAL HISTORY: M25.561 Pain in Rt leg, no trauma, worsened b/l knee and leg pain ?OA. TECHNIQUE: 2D digital imaging was performed of the right knee. Three views obtained. AP, lateral an d PA tunnel views were obtained. COMPARISON: There are no priors for comparison. FINDINGS: BONES: No acute fracture is present. No bony destructive lesion is seen. JOINTS: Moderately severe narrowing is seen in the lateral femoral tibial joint with moderate joint s pace narrowing of the patellofemoral joint. There osteophytes in all 3 joint compartments particular ly the patellofemoral joint. No significant joint effusion. There is chondrocalcinosis seen in the femoral tibial joint. This can be seen with CPPD arthropathy. SOFT TISSUE: Vascular calcifications are present. IMPRESSION: Moderately severe degenerative changes in the right knee. The findings are most marked at the patell ofemoral joint. DATA REPOSITORY: RADIATION DOSE DELIVERED:
== END ==
PROVIDERS: PCP Nurse Practitioner Adult Health; Visit Provider Nurse Practitioner Adult Health
DX: M25.562 Pain in left knee (principal); M25.561 Pain in right knee
CPT/HCPCS: 73562

== ENCOUNTER 2024-02-16 11:46 | Emergency (ER) | payer MEDICARE, SELFPAY ==
[2024-02-16] VITALS (84 sets, daily range): BP systolic 160–198; BP diastolic 68–105; PULSE 68–104; RESP 12–29; O2SAT 93–98
--- NOTE | 2024-02-16 11:45 | RT.EKG_ITS ---
APPROVED REPORT Exam: Resting ECG Reason for Exam: afib Patient Location: E HR:86 bpm ECG Measurements Heart Rate 86 AXIS [place] [id number] P [id number] QRSd 90 QRS 8 QT 369 T 27 QTc 442 Conclusion Atrial fibrillation...V-rate 68-106, irreg A-activity Consider anteroseptal infarct...Q >30mS, dimin R, V1-V2
--- NOTE | 2024-02-16 11:59 | W.ED.GENAD ---
Discharge Plan Disposition Patient Disposition: Home Condition: Stable Discharge Details Clinical Impression: Fall Primary Care Provider: Tiffany Patino ED Provider: Anshu Ying Home Meds and New Rx's Prescriptions: Continued nystatin 100,000 unit/gram powder 1 applic topical BID Qty: 60 0RF Rx Instructions: for 10 days vitamin B complex [B Complex-Vitamin B12] Tablet 2 tab PO DAILY Rx Instructions: Pt takes 2 gummies a day-- ascorbate calcium (vitamin C) 500 mg tablet 500 mg PO DAILY valsartan-hydrochlorothiazide 320-25 mg tablet 1 tab PO DAILY Qty: 90 3RF Rx Instructions: Dose increase 07/28/23 for goal BP <140/90 apixaban 5 mg tablet 5 mg PO BID Qty: 180 3RF citalopram 20 mg tablet 20 mg PO QHS Qty: 90 3RF diltiazem HCl 360 mg capsule,extended release 24hr 360 mg PO DAILY Qty: 90 3RF multivitamin [Daily Multi-Vitamin] 1 EACH tablet 1 ea PO DAILY meclizine 12.5 mg tablet 12.5 mg PO TID PRN (Reason: dizziness) Qty: 20 0RF Rx Instructions: Take one tablet 3 times daily as needed for dizziness Discharge Instructions Instructions: Fall Prevention for Older Adults (ED) Additional Instructions: You were seen in the emergency department for your mechanical fall on blood thinners, you did the right thing by presenting to the ED for evaluation. There is no acute bleeding in your head, there is no injury to your spine. We did check your heart with multiple troponin tests and an EKG which showed that your dizziness was not likely due to cardiac causes, you note chronic dizziness when standing up too quickly. Please take Tylenol for any minor pains and aches, please return to the ED for any developing cough or fever or shortness of breath, increasing chest pain, worsening dizziness with multiple falls, or any fall with headstrike. Referrals: Tiffany Patino, [employer] [Primary Care Provider] - Discharge Data Discharge Date/Time-TO BE ENTERED AT DEPARTURE: 02/16/24 16:16 HPI General Date/Time Provider Initiated Documentation: 02/16/24 11:54. HPI Narrative: 73 year-old female presents to ED today by POV/ambulating with a chief complaint of headstrike getting up from bed at 0400, got up fast and became dizzy falling and hitting her L front forehead- is on Eliquis. Quality described as L frontal forehead pain, back pain, neck pain, no radiation to visual changes, LOC, chest pain/palpitations prior to fall, confusion, numbness/tingling/weakness of any extremity. Severity is described as moderate. Palliating factors include nothing specific attempted. Provoking factors include nothing specific. Patient is anticoagulated on Eliquis. Related Data Home Medications Medication Instructions Recorded Confirmed multivitamin (Daily Multi-Vitamin 1 ea PO DAILY 01/03/13 02/16/24 tablet) nystatin 100,000 unit/gram topical 1 applic topical BID #60 grams 01/25/23 02/16/24 powder apixaban 5 mg tablet 5 mg PO BID blood thinner #180 tabs 07/28/23 02/16/24 ascorbate calcium (vitamin C) 500 500 mg PO DAILY 07/28/23 02/16/24 mg tablet citalopram 20 mg tablet 20 mg PO QHS #90 tabs 07/28/23 02/16/24 diltiazem HCl 360 mg 360 mg PO DAILY #90 caps 07/28/23 02/16/24 capsule,extended release 24 hr valsartan 320 1 tab PO DAILY #90 tabs 07/28/23 02/16/24 mg-hydrochlorothiazide 25 mg tablet vitamin B complex (B 2 tab PO DAILY 07/28/23 02/16/24 Complex-Vitamin B12 tablet) meclizine 12.5 mg tablet 12.5 mg PO TID PRN dizziness #01/19/24 02/16/24 tabs Previous Rx's Medication Instructions Recorded nystatin 100,000 unit/gram topical 1 applic topical BID #60 grams 01/25/23 powder apixaban 5 mg tablet 5 mg PO BID blood thinner #180 tabs 07/28/23 citalopram 20 mg tablet 20 mg PO QHS #90 tabs 07/28/23 diltiazem HCl 360 mg 360 mg PO DAILY #90 caps 07/28/23 capsule,extended release 24 hr valsartan 320 1 tab PO DAILY #90 tabs 07/28/23 mg-hydrochlorothiazide 25 mg tablet meclizine 12.5 mg tablet 12.5 mg PO TID PRN dizziness #20 01/19/24 tabs Allergies Allergy/AdvReac Type Severity Reaction Status Date / Time phenobarbital Allergy Intermediate rash Verified 02/16/24 12:24 General Stated Complaint: Fall/Non TraumaCriteria DESTINEE: 3 Review of Systems All systems reviewed & are unremarkable except as noted in HPI and below Exam Narrative Exam Narrative: GENERAL APPEARANCE: Obesity, non-toxic, awake and alert, atraumatic, no acute distress. SKIN: Warm, pink, dry, intact, without rashes/lesions/ulcerations. HEAD: Normocephalic, atraumatic, normal hair distribution for gender/age. EYES: Pupils PERRLA, EOMs intact without nystagmus, normal conjunctiva, no exudates on lids/lashes. ENT: Nares patent, no circumoral cyanosis, no facial swelling NECK: Supple, trachea midline, painless cervical ROM, mild midline cervical tenderness without vertebral crepitus/step-offs. LUNGS/CHEST: Lungs CTA bilaterally- no rhonchi/rales/wheezes diffusely, non-labored respirations, normal A/P diameter, symmetrical expansion, no chest wall deformity, no crepitus to chest, no flail segments or paradoxical motion, minor bruise to L mid-back HEART (CV/PV): Regular rate and rhythm without murmur, no peripheral edema, no JVD. ABDOMEN: Soft, non-distended, no guarding. MSK: Normal ROM, no swelling/deformity to bilateral UEs or LEs, moving all extremities without weakness, no cyanosis, spine midline with tenderness diffusely to T & L-Spine, no crepitus or step-offs, normal curvature. NEURO: Mental Status AAOx4 - alert to person, place, time, events No facial droop, no forehead involvement, no dysmetria with FNF Motor: No focal weakness - strength 5/5 in bilateral UEs and LEs, proximal and distal, symmetric. Sensory: sensation intact to light touch globally. Gait normal: patient ambulated without ataxia into ED room. PSYCH: euthymic, cooperative, pleasant, appropriate speech Course Vital Signs Vital signs: Vital Signs Pulse 104 H 02/16/24 11:54 Respiratory Rate 22 02/16/24 11:54 Blood Pressure 198/83 H 02/16/24 11:54 Pulse Oximetry 94 02/16/24 11:54 Pulse 104 H 02/16/24 11:54 Respiratory Rate 22 02/16/24 11:54 Blood Pressure 198/83 H 02/16/24 11:54 Pulse Oximetry 94 02/16/24 11:54 Oxygen Delivery Method Room Air 02/16/24 11:54 Oxygen Flow Rate 0 02/16/24 11:54 Pain Level 5 02/16/24 11:54 Medical Decision Making This dictation utilizes [id number] dictation software and may contain unedited grammatical errors. 73 year-old female presents to ED today by POV/ambulating with a chief complaint of headstrike getting up from bed at 0400, got up fast and became dizzy falling and hitting her L front forehead- is on Eliquis. Quality described as L frontal forehead pain, back pain, neck pain, no radiation to visual changes, LOC, chest pain/palpitations prior to fall, confusion, numbness/tingling/weakness of any extremity. Severity is described as moderate. Palliating factors include nothing specific attempted. Provoking factors include nothing specific. Patients' medical history: BPPV, seizure disorder, hypertension, A-fib, morbid obesity, osteoarthritis, balance problem, aortic valve stenosis, chronic venous insufficiency, thyroid nodule. Family and social history: Noncontributory. Pertinent exam findings / vital signs include midline cervical vertebral tenderness without crepitus or step-off, diffuse back tenderness with mild left-sided back bruise, neuro intact, benign cardiopulmonary status. Differential / pathologies of concern include ICH, Vertebral fracture, concussion, PTX. Diagnostic studies of: -CT head and C-spine, CT T and L-spine - no ICH or bleeding, no vertebral abnormality, known thyroid nodule. -EKG & serial troponins - negative for ACS by trop testing, EKG no STEMI no signs of ischemia, consistent with priors Interventions of: -None, counseled on Tylenol use. ED Course/Assessment/Plan: 73-year-old female with history of balance problems and BPPV states that she got up too fast to use the toilet at 4 AM and suffered a fall in the bathroom with head strike to her left frontal forehead as well as having some mild neck and back pain, CTs are completely unremarkable and the patient remained neurovascularly intact without IV evidence of deteriorating mental state throughout the visit and has been many hours since the fall, denies any chest pain with onset but serial troponins were performed with an EKG which shows no signs of acute coronary syndrome as cause of fall. Counseled the patient on use of therapeutic dosing of Tylenol for any aches and pains, ice any areas of pain, taking care when changing positions quickly, strict return criteria for any worsening neck or back pain, respiratory distress, confusion or severe increase in headache. Findings not consistent with ICH, subdural or epidural bleeding, vertebral fracture, pneumothorax, significant concussion syndrome. Disposition of Fall. Patient verbalized understanding of the plan and return to ED criteria and engaged in shared decision making. Medical Records Medical records reviewed: Yes I reviewed the patient's medical records. Imaging Data Radiologic Study: Attestation: I personally reviewed and interpreted this imaging study as follows: Imaging: CT Scan Radiologist's impression: EXAM: CT HEAD CERVICAL SPINE WO CLINICAL HISTORY: fall, headstrike, on thinners, neck back pain. TECHNIQUE: Imaging Protocol: Axial computed tomography images with coronal and sagittal reformatted images were created and reviewed COMPARISON: CT CT HEAD WO from 01/19/2024 FINDINGS: CT Head: Ventricles and Extra axial spaces: Normal in size and morphology for the patient's age. Hemorrhage: None. Cerebral parenchyma: There is again seen a prior resection of the right temporal lobe and right temporal craniotomy. There are areas of decreased attenuation in the white matter consistent with chronic microvascular ischemic disease. No acute mass effect is identified. Midline shift: None. Brainstem/Cerebellum: Normal. Calvarium: Prior right temporal craniotomy. Visualized Paranasal sinuses/Mastoids: Clear. Soft Tissues: Unremarkable. CT Cervical Spine: Bones: No acute fracture or subluxation. Age-appropriate degenerative changes are present. There is straightening of the normal cervical lordosis. Soft Tissues: There is a 1.7 cm hypodense nodule in the right lobe of the thyroid gland. There are several right thyroid nodules. Nonemergent thyroid ultrasound is recommended for further evaluation. Lung Apices: Clear. IMPRESSION: 1. No acute intracranial process. 2. No acute fracture or subluxation in the cervical spine. 3. Right thyroid nodules. Nonemergent thyroid ultrasound is recommended for further evaluation. Radiologic Study #2: Attestation: I personally reviewed and interpreted this imaging study as follows: Imaging: CT Scan Radiologist's impression: EXAM: CT THORACIC LUMBAR SPINE WO CLINICAL HISTORY: fall, headstrike, on thinners, neck back pain. TECHNIQUE: Imaging Protocol: Axial computed tomography images with coronal and sagittal reformatted images were created and reviewed. COMPARISON: No exams were available for comparison FINDINGS: Bones: No fractures or dislocations are seen. The alignment of the spine is normal including the cervicothoracic junction and the thoracolumbar junction. There is arthrosis seen in the thoracic spine. Soft tissues: There is cardiomegaly. Atherosclerotic calcification is present. IMPRESSION: No acute fracture or subluxation in the thoracic or lumbar spine. Lab Data Lab results reviewed: Yes I reviewed the patient's lab results. Labs: Laboratory Tests Range/Units 02/16/24 02/16/24 12:10 15:12 WBC (4.4-10.8) 10^3/uL 7.59 RBC (3.93-5.22) 10^6/uL 4.53 Hgb (11.2-15.7) g/dL 13.9 Hct (36.0-46.0) % 42.5 MCV (80-95) fL 94 MCH (27.0-33.0) pg 30.7 MCHC (32.0-36.0) % 32.7 RDW (11.7-14.6) % 13.9 Plt Count (130-400) 10^3/uL 215 MPV (8.0-11.0) fL 9.5 Immature Gran % % 0.3 Neutrophils % % 63.7 Lymphocytes % % 25.4 Monocytes % % 8.8 Eosinophils % % 1.3 Basophils % % 0.5 Nucleated RBC % (0.0-0.3) % 0.0 Absolute Neutrophils (1.2-6.7) 10^3/uL 4.83 Absolute Lymphocytes (1.2-3.4) 10^3/uL 1.93 Absolute Monocytes (0.1-0.8) 10^3/uL 0.67 Absolute Eosinophils (0.0-0.7) 10^3/uL 0.10 Absolute Basophils (0.0-0.2) 10^3/uL 0.04 Sodium (136-145) mmol/L 142 Potassium (3.5-5.1) mmol/L 4.0 Chloride (98-107) mmol/L 104 Carbon Dioxide (21.0-32.0) mmol/L 31.2 Anion Gap (3-11) mmol/L 6.8 BUN (7-18) mg/dL 13 Creatinine (0.55-1.02) mg/dL 0.8 Est GFR (CKD-EPI 2020) (mL/min/1.73m2) 78.72 Glucose (74-106) mg/dL 114 H Calcium (8.5-10.1) mg/dL 9.0 Total Bilirubin (0.2-1.0) mg/dL 0.7 AST (15-37) U/L 17 ALT (14-59) U/L 23 Alkaline Phosphatase (46-116) U/L 65 Troponin I (< or =60) ng/L < 50 < 50 NT-Pro-B Natriuret Pep (<300) pg/mL 1622 H Total Protein (6.4-8.2) g/dL 7.2 Albumin (3.4-5.0) g/dL 3.6 Quality:SDOH Health Related Social Needs: No Data to Display PFSH All Active Problems (Updated 02/16/24 @ 15:49 by YIFAN Quan) Fall (Acute) Bilateral primary osteoarthritis of knee (Acute ~02/2024) Chest pain (Acute) Essential (primary) hypertension (Chronic) Balance problem (Acute) Ascending aorta dilation (Acute ~2022) [facility] [place] Cardiology follows on ECHO--they recommend tighter BP control; 02/2024--declines further work-up, statin, surveillance Venous insufficiency of both lower extremities (Acute) Subclinical hypothyroidism (Chronic ~2016) Aortic valve stenosis (Chronic) Heart murmur (Acute) 12/04/22 [facility] [place] cardiology note: Moderate murmur. YIFAN Jhaveri Right thyroid nodule (Acute ~11/2022) ENT referral Left renal artery stenosis (Acute) [facility] vascular; 02/2024 declines further work-up Thoracic ascending aortic aneurysm (Acute) [facility] Vascular; 02/2024--declines further work-up; statin [place] cardiac risk 10-20% in next 10 years (Chronic) 2020 12.9% Hypercholesterolemia (Chronic ~06/26/21) 2023 ASCVD score 11.5%-->not a candidate for a statin Chronic anticoagulation (Chronic) Depressive disorder (Chronic 09/17/11) W/LOBECTOMY Pre-diabetes (Chronic ~2016) Snoring (Acute 02/02/13) Jayce ordered sleep consult 01/2013 Morbid obesity (Acute 02/02/13) 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 Atrial fibrillation (Chronic 05/19/12) Onset 2011, Holter 12/2011 AFib throughout, ECHO 12/2008 LVEF 65%+LVH Permanent, clinically silent Managed with rate control ASA [employer] Jayce Medical History Vitreomacular traction syndrome of both eyes (10/13/17) OS 20/40 05/31/21 Onychomycosis Anterior epistaxis (~03/2023) Acute cholecystitis due to biliary calculus Pain and swelling of right lower extremity Atypical chest pain Pain, foot Corns and callosities Impaired ambulation Right shoulder pain Benign paroxysmal positional vertigo (09/17/11) Pneumonia of left lower lobe due to infectious organism (12/09/16) Seizure disorder (09/17/11) Fatty infiltration of liver (02/15/18) Essential hypertension (09/17/11) goal BP 140/90 Diverticulosis of colon (02/15/18) Advanced directive placed in chart this admission (02/15/18) Hypertension Gallstones Snoring Hyperlipidemia Depression Vitreomacular traction syndrome of both eyes Afib Back pain Memory loss Morbid obesity Diverticulosis Surgical History S/P cholecystectomy (~10/2022) open NOEMY/BSO, 2003 Excessive bleeding Brain Surgery, 05/11/1993 Neurosurgery [facility] [place], frontal lobectomy s/p encephalitis with SZ Family History Mother Diabetes Essential hypertension Heart disease Stroke Father Heart disease Stroke Social History Smoking/Tobacco Use Status: Never Smoking risk assessment performed?: Yes Alcohol Intake: never Drug use: Never Substance use type: does not use Household members: none Housing: other Communication Needs: Corrective Lenses current occupation: works at [employer] Pets and animals: Yes Pets and animals: cat(s) What is your relationship status?: How often do you talk on the phone with friends or family?: once per week Panel score (0-1 are the most socially isolated patients): 0 What type of physical activity do you participate in: other Details: physically active at work Seatbelt use: always Drive intox or ride w/intox [employer]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
[2024-02-16 12:17] LABS: Abs Immature Grans 0.02 10^3/uL (0.0-0.06); Absolute Basophil Count 0.04 10^3/uL (0.0-0.2); Absolute Lymphocyte Count 1.93 10^3/uL (1.2-3.4); Absolute Monocyte Count 0.67 10^3/uL (0.1-0.8); Absolute Neutrophil Count 4.83 10^3/uL (1.2-6.7); Basophils % 0.5 %; Eosinophils % 1.3 %; HCT 42.5 % (36.0-46.0); HGB 13.9 g/dL (11.2-15.7); Immature Grans % 0.3 %; Lymphocytes % 25.4 %; MCH 30.7 pg (27.0-33.0); MCHC 32.7 % (32.0-36.0); MCV 94 fL (80-95); MPV 9.5 fL (8.0-11.0); Monocytes % 8.8 %; Neutrophils % 63.7 %; Platelet Count 215 10^3/uL (130-400); RBC 4.53 10^6/uL (3.93-5.22); RDW 13.9 % (11.7-14.6); RDW-SD 47.8 fL; WBC 7.59 10^3/uL (4.4-10.8)
[2024-02-16 12:41] LABS: ALT 23 U/L (14-59); AST 17 U/L (15-37); Albumin 3.6 g/dL (3.4-5.0); Alkaline Phosphatase 65 U/L (46-116); Anion Gap 6.8 mmol/L (3-11); BUN 13 mg/dL (7-18); Bilirubin, Total 0.7 mg/dL (0.2-1.0); CO2 31.2 mmol/L (21.0-32.0); CREATININE 0.8 mg/dL (0.55-1.02); Chloride 104 mmol/L (98-107); Estimated GFR 78.72 (mL/min/1.73m2); Glucose 114 mg/dL (74-106); NT-proBNP 1622 pg/mL (<300); Sodium 142 mmol/L (136-145); Total Protein 7.2 g/dL (6.4-8.2); Troponin I < 50 ng/L (< or =60)
--- NOTE | 2024-02-16 12:50 | DI.CT_ITS ---
Exam(s) CT THORACIC LUMBAR SPINE WO EXAM: CT THORACIC LUMBAR SPINE WO CLINICAL HISTORY: fall, headstrike, on thinners, neck back pain. TECHNIQUE: Imaging Protocol: Axial computed tomography images with coronal and sagittal reformatted images were created and reviewed. COMPARISON: No exams were available for comparison FINDINGS: Bones: No fractures or dislocations are seen. The alignment of the spine is normal including the cerv icothoracic junction and the thoracolumbar junction. There is arthrosis seen in the thoracic spine. Soft tissues: There is cardiomegaly. Atherosclerotic calcification is present. IMPRESSION: No acute fracture or subluxation in the thoracic or lumbar spine. RADIATION DOSE DELIVERED: 2,352.69mGy.cm Total DLP DATA REPOSITORY: All CT scans at this facility are submitted to the National Radiology Data Registry (NRDR) Dose Index Registry (DIR) with the [employer] (ACR). RADIATION OPTIMIZATION: All CT scans at this facility use at least one of these dose optimization te chniques: automated exposure control; mA and/or kV adjustment per patient size (includes targeted exa ms where dose is matched to clinical indication); or iterative reconstruction.
--- NOTE | 2024-02-16 12:50 | DI.CT_ITS ---
Exam(s) CT HEAD CERVICAL SPINE WO EXAM: CT HEAD CERVICAL SPINE WO CLINICAL HISTORY: fall, headstrike, on thinners, neck back pain. TECHNIQUE: Imaging Protocol: Axial computed tomography images with coronal and sagittal reformatted images were created and reviewed COMPARISON: CT CT HEAD WO from 01/19/2024 FINDINGS: CT Head: Ventricles and Extra axial spaces: Normal in size and morphology for the patient's age. Hemorrhage: None. Cerebral parenchyma: There is again seen a prior resection of the right temporal lobe and right tempo ral craniotomy. There are areas of decreased attenuation in the white matter consistent with chronic microvascular ischemic disease. No acute mass effect is identified. Midline shift: None. Brainstem/Cerebellum: Normal. Calvarium: Prior right temporal craniotomy. Visualized Paranasal sinuses/Mastoids: Clear. Soft Tissues: Unremarkable. CT Cervical Spine: Bones: No acute fracture or subluxation. Age-appropriate degenerative changes are present. There is straightening of the normal cervical lordosis. Soft Tissues: There is a 1.7 cm hypodense nodule in the right lobe of the thyroid gland. There are s everal right thyroid nodules. Nonemergent thyroid ultrasound is recommended for further evaluation. Lung Apices: Clear. IMPRESSION: 1. No acute intracranial process. 2. No acute fracture or subluxation in the cervical spine. 3. Right thyroid nodules. Nonemergent thyroid ultrasound is recommended for further evaluation. RADIATION DOSE DELIVERED: 1,299.99mGy.cm Total DLP DATA REPOSITORY: All CT scans at this facility are submitted to the National Radiology Data Registry (NRDR) Dose Index Registry (DIR) with the [employer] (ACR). RADIATION OPTIMIZATION: All CT scans at this facility use at least one of these dose optimization te chniques: automated exposure control; mA and/or kV adjustment per patient size (includes targeted exa ms where dose is matched to clinical indication); or iterative reconstruction.
[2024-02-16 15:39] LABS: Troponin I < 50 ng/L (< or =60)
== END 2024-02-16 16:16 | disposition home or self-care (01) ==
PROVIDERS: Emergency Provider Physician Assistant; PCP Nurse Practitioner Adult Health
DX: R42 Dizziness and giddiness (principal); M54.2 Cervicalgia; R51.9 Headache, unspecified; I48.91 Unspecified atrial fibrillation; I10 Essential (primary) hypertension; E78.5 Hyperlipidemia, unspecified; Z79.01 Long term (current) use of anticoagulants
CPT/HCPCS: 80053; 93005; 99284; 70450; 72125; 72128; 72131; 83880; 84484; 85025; 93010

== ENCOUNTER → 2024-02-28 10:28 | Outpatient (BNVA) | payer MEDICARE, SELFPAY | PROVIDERS: PCP Nurse Practitioner Adult Health; Referring Provider Nurse Practitioner Adult Health; Visit Provider Podiatrist | DX: L60.3 Nail dystrophy (principal); B35.1 Tinea unguium; Z79.01 Long term (current) use of anticoagulants; I87.2 Venous insufficiency (chronic) (peripheral); M79.674 Pain in right toe(s); M79.675 Pain in left toe(s) | CPT/HCPCS: 11721 ==

== ENCOUNTER → 2024-02-29 01:14 | Outpatient (CLI) | payer MEDICARE, SELFPAY ==
--- NOTE | 2024-02-29 07:45 | DI.US_ITS ---
Exam(s) US THYROID EXAM: US THYROID CLINICAL HISTORY: thyroid nodule, TR 4 right lobe,ULTRASOUND GUIDED BX,E04.1. TECHNIQUE: Ultrasound guidance provided for thyroid biopsy. COMPARISON: US US THYROID from 01/19/2024 FINDINGS: Apparently the ENT surgeon decided not to biopsy the right breast nodule at this time. Plan apparent ly is to re-scanned her in 6 months IMPRESSION: As above. DATA REPOSITORY:
== END ==
PROVIDERS: PCP Nurse Practitioner Adult Health; Visit Provider Registered Nurse Maternal Newborn
DX: E04.1 Nontoxic single thyroid nodule (principal)
CPT/HCPCS: 76536

== ENCOUNTER → 2024-05-22 13:05 | Outpatient (BNVA) | payer MEDICARE, SELFPAY | PROVIDERS: PCP Nurse Practitioner Adult Health; Referring Provider Nurse Practitioner Adult Health; Visit Provider Student in an Organized Health Care Education/Training Program | DX: M17.11 Unilateral primary osteoarthritis, right knee (principal); M17.12 Unilateral primary osteoarthritis, left knee | CPT/HCPCS: 20610; 99213; J1010 ==

== ENCOUNTER → 2024-07-03 10:46 | Outpatient (BNVA) | payer MEDICARE, SELFPAY | PROVIDERS: PCP Nurse Practitioner Adult Health; Referring Provider Nurse Practitioner Adult Health; Visit Provider Podiatrist | DX: L60.3 Nail dystrophy (principal); B35.1 Tinea unguium; L85.8 Other specified epidermal thickening; M79.675 Pain in left toe(s); Z79.01 Long term (current) use of anticoagulants; I87.2 Venous insufficiency (chronic) (peripheral); R09.89 Other specified symptoms and signs involving the circulatory and respiratory systems; R60.0 Localized edema; L65.9 Nonscarring hair loss, unspecified; R23.8 Other skin changes; L84 Corns and callosities; M79.674 Pain in right toe(s); L60.2 Onychogryphosis; L60.8 Other nail disorders; I48.91 Unspecified atrial fibrillation; I73.89 Other specified peripheral vascular diseases | CPT/HCPCS: 11056; 11721 ==

== ENCOUNTER 2024-08-30 02:48 | Outpatient (CLI) | payer MEDICARE, SELFPAY ==
--- NOTE | 2024-08-30 07:30 | DI.US_ITS ---
Exam(s) US THYROID EXAM: US THYROID CLINICAL HISTORY: Assess for change,multinodular thyroid,e04.2. TECHNIQUE: Ultrasound thyroid performed using standard protocol. COMPARISON: US US THYROID from 01/19/2024 US US THYROID from 02/29/2024 FINDINGS: ISTHMUS: 3.9 mm RIGHT LOBE: Size: 5.4 x 3.0 x 2.8 cm Echogenicity: Normal. Vascularity: Normal. Nodules: There has been no significant change in the appearance of the thyroid nodules since 01/19/2024 . There is a predominantly solid nodule in the superior aspect of the right lobe measuring 1.9 x 1.3 x 1.6 cm. This compares to 1.8 x 1.2 x 1.5 cm on the prior examination. It remains a TI rads level 3 nodule. The 2nd nodule measured is laterally in the midpole and measures 1.2 x 0.7 x 1.1 cm. It is a mixed composition nodule. This compares to 1.4 x 1.0 x 1.1 cm. This remains a TI rads level 5 nodule the more inferior solid nodule measures 1.2 x 0.8 x 1.1 cm. It is hypoechoic. It remains a T I rads level 5 nodule. Previously this measured 1.5 x 0.8 x 1.2 cm. There is a medial solid hypoech oic nodule measuring 0.9 x 0.7 x 0.7 cm. This compares to 0.8 x 0.7 x 0.8 cm. This remains a TI rad s 4 level nodule. LEFT LOBE: Size: 4.6 x 1.4 x 1.6 cm Echogenicity: Normal. Vascularity: Normal. Nodules: There is again seen a solid hypoechoic nodule in the inferior pole measuring 0.9 x 0.6 x 0.8 cm. This compares to 0.9 x 0.6 x 0.9 cm. It remains a TI rads 4 level nodule. OTHER FINDINGS: None. IMPRESSION: Stable thyroid nodules. DATA REPOSITORY:
== END 2024-08-30 03:08 ==
LOC: DI 02:48
PROVIDERS: PCP Nurse Practitioner Adult Health; Visit Provider Otolaryngology
DX: E04.2 Nontoxic multinodular goiter (principal)
CPT/HCPCS: 76536

== ENCOUNTER 2024-10-17 00:49 | Outpatient (CLI) | payer MEDICARE, SELFPAY ==
[2024-10-17 12:13] LABS: Hemoglobin A1C 5.8 % (<5.7)
[2024-10-17 12:20] LABS: Anion Gap 2.6 mmol/L (3-11); BUN 12 mg/dL (7-18); CO2 36.4 mmol/L (21.0-32.0); CREATININE 0.8 mg/dL (0.55-1.02); Calcium 9.5 mg/dL (8.5-10.1); Chloride 106 mmol/L (98-107); Estimated GFR 78.24 (mL/min/1.73m2); Glucose 112 mg/dL (74-106); Potassium 4.5 mmol/L (3.5-5.1); Sodium 145 mmol/L (136-145); TSH (W/Ref FT4) 4.36 uIU/mL (0.36-3.74)
[2024-10-17 12:42] LABS: FREE T4 1.07 ng/dL (0.76-1.46)
== END 2024-10-17 00:50 | disposition home or self-care (01) ==
PROVIDERS: PCP Nurse Practitioner Adult Health; Visit Provider Nurse Practitioner Adult Health
DX: R73.03 Prediabetes (principal); E03.8 Other specified hypothyroidism; E04.2 Nontoxic multinodular goiter; I10 Essential (primary) hypertension
CPT/HCPCS: 36415; 80048; 83036; 84439; 84443

== ENCOUNTER → 2024-10-30 09:58 | Outpatient (BNVA) | payer MEDICARE, SELFPAY | PROVIDERS: PCP Nurse Practitioner Adult Health; Referring Provider Nurse Practitioner Adult Health | DX: M17.11 Unilateral primary osteoarthritis, right knee (principal); M17.12 Unilateral primary osteoarthritis, left knee | CPT/HCPCS: 20610; 99213; J1010 ==

== ENCOUNTER → 2024-10-30 11:08 | Outpatient (BNVA) | payer MEDICARE, SELFPAY | PROVIDERS: PCP Nurse Practitioner Adult Health; Referring Provider Nurse Practitioner Adult Health; Visit Provider Podiatrist | DX: L60.3 Nail dystrophy (principal); B35.1 Tinea unguium; Z79.01 Long term (current) use of anticoagulants; I87.2 Venous insufficiency (chronic) (peripheral); L60.2 Onychogryphosis; M79.674 Pain in right toe(s); M79.675 Pain in left toe(s); R73.03 Prediabetes; R09.89 Other specified symptoms and signs involving the circulatory and respiratory systems; R60.0 Localized edema; L65.9 Nonscarring hair loss, unspecified; R23.8 Other skin changes; L60.8 Other nail disorders; L56.5 Disseminated superficial actinic porokeratosis (DSAP) | CPT/HCPCS: 11056; 11721 ==

== ENCOUNTER → 2025-02-26 10:28 | Outpatient (BNVA) | payer MEDICARE, SELFPAY | PROVIDERS: PCP Nurse Practitioner Adult Health; Referring Provider Nurse Practitioner Adult Health; Visit Provider Podiatrist | DX: L60.3 Nail dystrophy (principal); B35.1 Tinea unguium; Z79.01 Long term (current) use of anticoagulants; I87.2 Venous insufficiency (chronic) (peripheral); I89.0 Lymphedema, not elsewhere classified; I73.89 Other specified peripheral vascular diseases; R09.89 Other specified symptoms and signs involving the circulatory and respiratory systems; I83.93 Asymptomatic varicose veins of bilateral lower extremities; L65.9 Nonscarring hair loss, unspecified; R23.8 Other skin changes; L60.2 Onychogryphosis; L60.8 Other nail disorders; L85.8 Other specified epidermal thickening | CPT/HCPCS: 11055; 11721 ==

== ENCOUNTER → 2025-05-29 13:27 | Outpatient (BNVA) | payer MEDICARE, SELFPAY | PROVIDERS: PCP Nurse Practitioner Adult Health; Referring Provider Nurse Practitioner Adult Health; Visit Provider Physician Assistant | DX: M17.0 Bilateral primary osteoarthritis of knee (principal) | CPT/HCPCS: 20610; J1010 ==

== ENCOUNTER → 2025-07-02 10:51 | Outpatient (BNVA) | payer MEDICARE, SELFPAY | PROVIDERS: PCP Nurse Practitioner Adult Health; Referring Provider Nurse Practitioner Adult Health; Visit Provider Podiatrist | DX: L60.3 Nail dystrophy (principal); B35.1 Tinea unguium; I87.2 Venous insufficiency (chronic) (peripheral); Z79.01 Long term (current) use of anticoagulants; I89.0 Lymphedema, not elsewhere classified; L85.8 Other specified epidermal thickening; M79.672 Pain in left foot; R09.89 Other specified symptoms and signs involving the circulatory and respiratory systems; R23.4 Changes in skin texture; I83.93 Asymptomatic varicose veins of bilateral lower extremities; L65.9 Nonscarring hair loss, unspecified; R23.8 Other skin changes; L60.2 Onychogryphosis; L60.8 Other nail disorders | CPT/HCPCS: 11721 ==

== ENCOUNTER → 2025-08-29 00:18 | Outpatient (CLI) | payer MEDICARE, SELFPAY ==
--- NOTE | 2025-08-29 07:30 | DI.US_ITS ---
Exam(s) US THYROID EXAM: US THYROID CLINICAL HISTORY: 1 year f/u,MULTINODULAR GOITER,E04.2. TECHNIQUE: Ultrasound thyroid performed using standard protocol. COMPARISON: US US ECHOCARDIOGRAM from 10/23/2022 US US ABDOMEN LIMITED from 10/23/2022 US POCUS EXAM from 10/28/2022 US US LOWER EXTREMITY VENOUS RT from 11/02/2022 US US THYROID from 01/14/2023 US US THYROID from 01/19/[address] HEAD CERVICAL SPINE WO from 02/16/2024 US US THYROID from 02/29/2024 US US THYROID from 08/30/2024 FINDINGS: ISTHMUS: 7 mm RIGHT LOBE: Size: 5.5 x 3.0 x 2.8 cm Echogenicity: Heterogeneous Vascularity: Normal. Nodules: Multiple. The largest is at the upper pole measuring 1.9 x 1.3 x 1.6 cm. Solid, isoechoic, wire than tall, smoothly marginated, without echogenic foci, TR 3. Nodule mid pole measuring 1.2 x 0.7 x 1.1, mixed cystic and solid, I soft colic, lobulated margins echogenic foci, TR 5. Nodule of mid to lower pole measuring 1.3 x 0.8 x 1.1 cm solid, hypoechoic, wider than tall, smoothly marginated with echogenic foci, TR 5. Nodule lower pole measuring 0.9 x 0.7 x 0.9 cm. Solid, hypoechoic, wider than call, smoothly marginated without echogenic foci, TR 4. LEFT LOBE: Size: 5.2 x 1.5 x 1.6 cm Echogenicity: Heterogeneous Vascularity: Normal. Nodules: Nodule lower pole left lobe measuring 0.9 x 0.7 x 0.8 cm, solid, hypoechoic, wider than tall, smoothly marginated, without echogenic foci, TR 4. OTHER FINDINGS: No adenopathy. IMPRESSION: Stable size and appearance of multiple thyroid nodules, right greater than left. DATA REPOSITORY:
== END ==
LOC: DI 00:18
PROVIDERS: PCP Nurse Practitioner Adult Health; Visit Provider Otolaryngology
DX: E04.2 Nontoxic multinodular goiter (principal)
CPT/HCPCS: 76536